=== PATIENT | male | born 1985 | race Hispanic/Latino ===

== ENCOUNTER 2018-02-21 22:48 | Observation (INO) | payer OTHER, MEDICAID, SELFPAY ==
[2018-02-21 22:59] VITALS: BP 151/114; PULSE 97; RESP 22; TEMP 36.1; O2SAT 97; BMI 30.8
[2018-02-21] MEDS: HYDROMORPHONE 1 MG INJ IV ×2 (23:06→23:19)
--- NOTE | 2018-02-21 23:13 | DI.RAD.S_ITS ---
PROCEDURE: XR ACUTE ABDOMEN SERIES INDICATIONS: Abdominal pain TECHNIQUE: One view chest and two views of the abdomen were acquired. COMPARISON: None. FINDINGS: Surgical changes and devices: None. Chest: Lungs are clear. Heart size is normal. No pleural effusions. No pneumoperitoneum. Abdomen: Air distended bowel loops throughout abdomen is seen with multiple air-fluid levels. No suspicious calcifications. Visualized solid organ contours appear normal. Bones: No suspicious bony lesions. IMPRESSION: Finding is concerning for distal small bowel obstruction. No gross free air. Dictated by: Bud Brothers M.D. on 02/22/2018 at 10:11 Approved by: Bud Brothers M.D. on 02/22/2018 at 10:11
[2018-02-21 23:32] LABS: Add Manual Diff / Slide Review NO; Basophils Absolute Auto 0 /uL (0-100); Basophils Percent Auto 0.2 % (0-2); Eosinophils Absolute Auto 0 /uL (0-450); Eosinophils Percent Auto 0.3 % (2-4); Hematocrit 44.9 % (41-53); Lymphocytes Absolute Auto 1300 /uL (1100-4500); Lymphocytes Percent Auto 9.1 % (25-40); Mean Corpuscular HGB Conc 33.4 % (30-36); Mean Corpuscular Hemoglobin 28.9 PG (26-34); Mean Corpuscular Volume 86.5 fL (80-100); Monocytes Absolute Auto 1200 /uL (0-900); Monocytes Percent Auto 8.6 % (3-14); Neutrophils Absolute Auto 11700 /uL (1500-7000); Neutrophils Percent Auto 81.8 % (50-75); Platelet Count 233 X10^3/uL (150-400); Red Blood Cell Count 5.19 X10^6/uL (4.5-5.9); Red Cell Distribution Width 14.7 % (11.6-14.8); White Blood Cell Count 14.3 X10^3/uL (4.5-11.0)
[2018-02-21] MEDS: KETAMINE 500 MG/5 ML INJ 11.7934 MG IV (23:37)
--- NOTE | 2018-02-21 23:37 | PC.NURSE ---
Pt given Ketamine for pain relief. Pt on monitor technician
[2018-02-21 23:41] VITALS: BP 155/103; PULSE 103; RESP 16; O2SAT 100
[2018-02-21 23:43] LABS: Alanine Aminotransferase 67 IU/L (21-72); Albumin 4.4 g/dL (3.5-5.0); Albumin Globulin Ratio 1.3 (1.0-2.8); Alkaline Phosphatase 79 U/L (38-126); Aspartate Aminotransferase 26 IU/L (17-59); Bilirubin Total 1.1 mg/dL (0.2-1.3); Blood Urea Nitrogen 22 mg/dL (9-20); Calcium 9.1 mg/dL (8.4-10.2); Carbon Dioxide 25 mmol/L (22-32); Chloride 104 mmol/L (98-107); Estimated Glomerular Filt Rate > 60.0 mL/min (>60); Globulin 3.3 g/dL (1.7-4.1); Glucose 150 mg/dL (70-100); HEMOLYSIS < 15 (0-50); Lipase 20 U/L (23-300); Potassium 3.5 mmol/L (3.4-5.1); Sodium 143 mmol/L (137-145); Total Protein 7.7 g/dL (6.3-8.2)
--- NOTE | 2018-02-22 00:32 | DI.RAD.S_ITS ---
PROCEDURE: XR CHEST 1V INDICATIONS: NG tube placement verification TECHNIQUE: One view of the chest was acquired. COMPARISON: None. FINDINGS: Surgical changes and devices: Enteric tube tip is in the region of stomach lumen below the left hemidiaphragm.. Lungs and pleura: No pleural effusions or pneumothorax. Lungs are clear. Mediastinum: Mediastinal contours appear normal. Heart size is normal. Bones and chest wall: No suspicious bony lesions. Overlying soft tissues appear unremarkable. IMPRESSION: Enteric tube tip is in the region of stomach lumen. No acute cardiopulmonary pathology. Dictated by: Bud Brothers M.D. on 02/22/2018 at 10:12 Approved by: Bud Brothers M.D. on 02/22/2018 at 10:12
[2018-02-22 00:40] VITALS: BP 168/82; PULSE 89; RESP 13; O2SAT 100
--- NOTE | 2018-02-22 00:57 | ED.ABDPAIN ---
HPI - Abdominal Pain General Chief Complaint: Abdominal Pain Stated Complaint: Abd pain Time Seen by Provider: 02/21/18 22:51 Source: patient and EMS Mode of arrival: EMS Limitations: no limitations History of Present Illness HPI narrative: 32-year-old male, nonsmoker presents by EMS for evaluation of severe epigastric pain which started a few hours prior to arrival. The pain is severe and reminds patient of prior gallbladder attack. He denies provocation, palliation or radiation of this discomfort. It is associated with nausea and vomiting. He denies fever or chills. Patient given fentanyl 200 mcg by EMS prior to arrival MD complaint: abdominal pain Onset (ago): hour(s) Pain Consistency: constant Location: epigastric Severity: severe Severity scale (1-10): 10 Quality: cramping and stabbing Relieving factors: nothing Exacerbating factors: movement Associated symptoms: nausea and vomiting Related Data Home Medications Medication Instructions Recorded Confirmed ibuprofen #0 09/03/15 Previous Rx's Medication Instructions Recorded ondansetron [Zofran ODT] 4 mg SUBLINGUAL Q6HP PRN #10 odt 12/04/16 Allergies Allergy/AdvReac Type Severity Reaction Status Date / Time No Known Drug Allergies Allergy Verified 02/21/18 22:59 Review of Systems Constitutional Denies chills, Denies fever(s), Denies lethargy and Denies weakness Eyes Denies change in vision, Denies eye discharge, Denies irritation and Denies loss of vision ENT Ears, Nose, Mouth, and Throat: Denies change in voice, Denies neck pain and Denies sore throat Cardiovascular Denies chest pain, Denies irregular heart rhythm, Denies lightheadedness, Denies palpitations, Denies dyspnea, Denies dyspnea on exertion and Denies orthopnea Respiratory Denies cough, Denies dyspnea, Denies dyspnea on exertion and Denies wheezing Gastrointestinal Gastrointestinal: Denies abdominal pain, Denies change in bowel habits, Denies diarrhea, Denies nausea and Denies vomiting Genitourinary Denies hematuria, Denies flank pain, Denies urinary incontinence and Denies urinary urgency Musculoskeletal Denies neck pain Integumentary/Breasts Denies pruritus, Denies erythema, Denies rash and Denies wounds Neurologic Denies confusion, Denies loss of vision and Denies weakness Psychiatric Denies anxiety, Denies confusion, Denies depression, Denies homicidal ideation and Denies suicidal ideation Endocrine Denies palpitations Hematologic/Lymphatic Denies easy bruising Allergic/Immunologic Denies wheezing PFSH Surgical History Hx of cholecystectomy (Acute) Social History household members: friend(s) Smoking Status: Current every day smoker Exam Narrative Exam Narrative: 32-year-old male in significant amount of pain, diaphoretic actively vomiting Initial Vital Signs Initial Vital Signs: Vital Signs Temperature 97.0 F L 02/21/18 22:59 Pulse Rate 97 H 02/21/18 22:59 Respiratory Rate 22 02/21/18 22:59 Blood Pressure 151/114 H 02/21/18 22:59 Pulse Oximetry 97 02/21/18 22:59 Const General: cooperative, well developed and acute distress Nutritional Appearance: well nourished and obese Orientation: alert, awake, oriented x3 and not confused HENMT Head: normocephalic and atraumatic Nose: external nose normal Mouth: oral mucosae normal Teeth and gingiva: dentition normal Eyes General: appearance normal, both eyes and all related structures Eyelids: eyelids normal Conjunctivae: conjunctivae normal Sclera: sclerae normal Pupils: PERRL EOM: EOM intact bilaterally Neck Neck: normal visual inspection, trachea midline, No lymphadenopathy, No midline deformity and No JVD Lymphatic: No lymphedema Chest Chest: normal inspection of the chest Resp Effort & Inspection: normal respiratory effort, able to speak in complete sentences, no respiratory distress and no use of accessory muscles Auscultation: clear to auscultation bilaterally, no rales, no rhonchi and no wheezes GI Inspection: distended Palpation: soft, no hepatosplenomegaly, No guarding, No pulsatile mass and tender Auscultation: normal bowel sounds Course Orders Ordered: ED Orders 02/21/18 23:13 XR acute abdomen series Stat 02/21/18 23:22 Complete Blood Count AUTO DIFF Stat Comprehensive Metabolic Panel Stat Lipase Stat 02/22/18 00:32 XR chest 1V Stat 02/22/18 01:53 Consult to Dietitian, Adult Routine Sodium Chloride (Normal Saline 0.9%) 1,000 mls @ 150 mls/hr IV CONT DORIAN Last Admin: 02/22/18 01:09 Dose: 150 mls/hr HYDROMORPHONE HUMAN RESOURCES OPERATIONS MANAGER (Dilaudid 6 Mg/30 Ml) 6 mg in 30 mls @ 0 mls/hr IV Q8HR DORIAN Naloxone HCl (Narcan) 0.2 mg IV Q2MIN PRN; Protocol PRN Reason: Opiate Reversal Ondansetron HCl (Zofran) 4 mg IV Q4HR PRN PRN Reason: Nausea And Vomiting Discontinued Medications Hydromorphone HCl (Dilaudid) 1 mg IV NOW ONE Stop: 02/21/18 23:02 Last Admin: 02/21/18 23:06 Dose: 1 mg Hydromorphone HCl (Dilaudid) 1 mg IV NOW ONE Stop: 02/21/18 23:13 Last Admin: 02/21/18 23:19 Dose: 1 mg Ketamine HCl (Ketalar) 11.7934 mg 0.1 mg/kg (11.7934 mg) IV NOW ONE Stop: 02/21/18 23:33 Last Admin: 02/21/18 23:37 Dose: 11.7934 mg Reevaluation(s) Reevaluation #1: patient showing marked improvement after placement of NG Consultations Consultation #1: Dr. Garrido is happy to accept patient. IVF, pain meds, zofran, NPO Vital Signs - 8 hr 02/21/18 22:59 02/21/18 23:41 02/22/18 00:40 Temperature 97.0 F L Pulse Rate 97 H 103 H 89 Respiratory Rate 22 16 13 Blood Pressure 151/114 H Blood Pressure [Right Arm] 155/103 H 168/82 H Pulse Oximetry 97 100 100 02/22/18 01:00 Temperature 97.7 F Pulse Rate 84 Respiratory Rate 12 Blood Pressure 152/98 H Blood Pressure [Right Arm] Pulse Oximetry 97 MDM - Abdominal Pain Lab Data Result diagrams: 02/21/18 23:22 02/21/18 23:22 Lab Results 02/21/18 02/21/18 Range/Units 23:22 23:22 WBC 14.3 H (4.5-11.0) X10^3/uL RBC 5.19 (4.5-5.9) X10^6/uL Hgb 15.0 (13.5-17.5) g/dL Hct 44.9 (41-53) % MCV 86.5 (80-100) fL MCH 28.9 (26-34) PG MCHC 33.4 (30-36) % RDW 14.7 (11.6-14.8) % Plt Count 233 (150-400) X10^3/uL Neut % (Auto) 81.8 H (50-75) % Lymph % (Auto) 9.1 L (25-40) % Mobile % (Auto) 8.6 (3-14) % Eos % (Auto) 0.3 L (2-4) % Baso % (Auto) 0.2 (0-2) % Neut # (Auto) 45856 H (7582-8406) /uL Lymph # (Auto) 1300 (9176-6079) /uL Mobile # (Auto) 1200 H (0-900) /uL Eos # (Auto) 0 (0-450) /uL Baso # (Auto) 0 (0-100) /uL Sodium 143 (137-145) mmol/L Potassium 3.5 (3.4-5.1) mmol/L Chloride 104 (98-107) mmol/L Carbon Dioxide 25 (22-32) mmol/L BUN 22 H (9-20) mg/dL Creatinine 1.00 (0.66-1.25) mg/dL Estimated GFR > 60.0 (>60) mL/min BUN/Creatinine Ratio 22.0 (6-22) Glucose 150 H (70-100) mg/dL Calcium 9.1 (8.4-10.2) mg/dL Total Bilirubin 1.1 (0.2-1.3) mg/dL AST 26 (17-59) IU/L ALT 67 (21-72) IU/L Alkaline Phosphatase 79 (38-126) U/L Total Protein 7.7 (6.3-8.2) g/dL Albumin 4.4 (3.5-5.0) g/dL Globulin 3.3 (1.7-4.1) g/dL Albumin/Globulin Ratio 1.3 (1.0-2.8) Lipase 20 L (23-300) U/L Imaging Data Abdominal x-ray: Radiologist's impression: bowel obstruction - airfluid levels, dilated loops of bowel, large amount of air in stomach Discharge Plan Departure Patient Disposition: Admitted As Inpatient Clinical Impression: Partial obstruction of small intestine Discharge Date/Time: 02/22/18 01:14 Interventions: ED Discharge Assessment Last Done: 02/22/18 01:12 Admit Date/Time: 02/22/18 00:37 Admit Provider: Gypsy Garrido
[2018-02-22 01:00] VITALS: BP 152/98; PULSE 84; RESP 12; TEMP 36.5; O2SAT 97; BMI 30.8
[2018-02-22] MEDS: SODIUM CHLORIDE 0.9% 1,000 ML 150 ML IV ×2 (01:09→07:56)
--- NOTE | 2018-02-22 02:09 | PC.NURSE ---
Addendum entered by Celine August R.N. 02/22/18 05:08: Pt continues to c/o pain, and became verbally threatening towards this RN over requests for water. Called Coordinator for assistance who also attempted to explain to patient about NPO status and how water could make his situation worse. Coordinator agreed to let patient swish and spit water to which patient was dissatisfied with temperature of sink water. BUSINESS ANALYTICS FACULTY MEMBER retrieved ice water, this RN gave him a swish to which pt asked for more and to not treat me like a child. This RN gave him three more swishes and spits and left the room with the coordinator. Shortly after bed alarm sounded and found pt attempting to sit up in bed, gown had been tossed to the floor. Pt writhing in bed, had scratched himself repeatedly on forehead, c/o worst pain ever and that this RN was not doing anything for him. Explained that I had done everything avaible for him and that his doctor was on her way in to evaluate him for the ongoing pain. Pt very upset that Dr was not already in the hospital and attempted to explain the distance Dr Garrido must travel. Pt threatened to discontinue himself from his lines to get more water and attempted to get out of bed. Pt asked me to leave the room so that he could do so, explained to him that I could not leave the room if he was going to be a danger to himself. Pt stated that this RN was irritating him and making him want to leave the hospital and to just leave my room. Attempted to calm patient down and explain again his situation and again patient told me that I needed to walk out of his room because I don't know what would happen if you don't. This RN left patient's room and called Coordinator to make her aware of the threat and also called security to make them aware of patient making threats. Security reported that pt was asleep in bed when he arrived but that he would make more rounds in the area if necessary. Coordinator aware of current pt status. Original Note: Addendum entered by Celine August R.N. 02/22/18 04:23: Pt initiated call light to possibly have a BM. BUSINESS ANALYTICS FACULTY MEMBER answered light and attempted to get pt on bedside commode but the movement elicited c/o pain and writhing in the bed. Pt refused to attempt to use bedpan. Pt requested additional pain medications and was encouraged to use NURSING CARE PARTNER. This RN checked NURSING CARE PARTNER history and found since initiation at 2:12 am pt had used 1mg of Dilaudid with 8 additional denied attempts and had returned to sleep after episode of pain. Called Dr Garrido due to concern for cyclical pain pt experiences with somnolence between episodes. Discussed possible interventions with Dr Garrido who elected to come in within an hour or more and see the patient. Pt appears to be resting comfortably now and will continue to monitor. Original Note: Shift Note: Pt arrived on unit c/o of pain, writhing on the gurney, repeating that the pain had returned. Pt continually needed to be reminded to keep left arm non-flexed due to his IV being placed in left AC. Pt attached to wall suction on low intermittent pressure. Due to pt's pain, was difficult with care, including x-ray confirmation of NG tube placement, and was unable to be properly oriented to room. Dilaudid NURSING CARE PARTNER initiated with standard settings (0.2/10/6), pt educated on NURSING CARE PARTNER button use and educated that if pt were to have decreased breaths, decreased O2 saturation levels, or cessation of breathing that Narcan would be used to reverse the effects. Pt acknowledged use of NURSING CARE PARTNER and use of call light should he feel the need to get out of bed. Bed alarm initiated and pt resting comfortably in bed now.
[2018-02-22 06:15] VITALS: TEMP 36.5
[2018-02-22] MEDS: HYDROMORPHONE PCA 6 MG/30 ML PCA.VIAL IV (06:15)
--- NOTE | 2018-02-22 06:25 | PC.NURSE ---
[id number] Met patient earlier in shift at request of his nurse Celine Mckinley. Pt was requesting water at that time and came to an agreement that patient could swish with water and spit. Pt agreeable to this to maintain NPO status. Currenlty NG intact and IV infusing. Patient sleeping until ELECTRONIC BENCH TECHNICIAN clearance when machine beeped. Pt awakened an responding calmly. Pt requesting to swish and spit again. Pt agreeable to not swallow H2O. Pt states no pain currenlty, but had used 1.8 mg since admission this shift. Pt currenlty calm and cooperative with respectful exchange.
[2018-02-22 07:59] VITALS: BP 130/63; PULSE 93; RESP 18; TEMP 36.4; O2SAT 97
--- NOTE | 2018-02-22 12:04 | PC.NURSE ---
Pt's NG tube has been found pulled out at approx. 0930. Pt reports It fell out. Sticker to nose intact. Pt has been relieved of copious amounts of flatus after sitting on the toilet for a short time. He denies pain and has asked to look at the hospital food menu. Pt has been asking when he will be able to eat and drink. He was educated to the process of SBO and typical course of treatment. Pt was assured the doctor would be in soon to see him soon and explain further. Pt expressed multiple times that this was like being in retirement. This nurse explained that we were just trying to help him and not make him upset. He was reminded multiple times that it was his right to refuse treatment and leave the hospital if he wished, against medical advice. Pt reported that if he didn't see the doctor soon, he would rip his IV out and leave. A short time later, the patient asked to have his belongings and for his IV to be removed. Pt left the hospital after signing AMA paperwork at approx. 11:15
== END 2018-02-22 11:40 | disposition left against medical advice (07) ==
LOC: ED 02-22 00:35 → AC 02-22 01:02
PROVIDERS: Admitting Provider Surgery; Emergency Provider Emergency Medicine; Visit Provider Surgery
DX: K56.600 Partial intestinal obstruction, unspecified as to cause (principal); R10.9 Unspecified abdominal pain; R11.2 Nausea with vomiting, unspecified; Z53.21 Procedure and treatment not carried out due to patient leaving prior to being seen by health care provider; F17.210 Nicotine dependence, cigarettes, uncomplicated
CPT/HCPCS: 36415; 71045; 74022; 80053; 83690; 85025; 96374; 96375; 96376; 99283; 99285; G0378; J1170

== ENCOUNTER 2018-05-21 11:03 | Observation (INO) | payer OTHER, MEDICAID, SELFPAY ==
[2018-05-21 11:10] VITALS: BP 156/105; PULSE 77; RESP 20; TEMP 36.7; O2SAT 100; BMI 32.0
--- NOTE | 2018-05-21 12:01 | PC.NURSE ---
reports 2 months ago, left ama for twisted bowel, has similar sxs now. abdominal pain with nausea and vomiting x3. had normal bm today. used tums. hx of cholecystectomy.
[2018-05-21 12:17] LABS: INR 0.9 (0.9-1.3); Prothrombin Time 10.1 SECONDS (10.1-12.7)
[2018-05-21 12:20] LABS: PTT Partial Thromboplastin Tim 33 SECONDS (26.4-36.2)
[2018-05-21 12:23] LABS: Alanine Aminotransferase 83 IU/L (21-72); Albumin 5.6 g/dL (3.5-5.0); Albumin Globulin Ratio 1.3 (1.0-2.8); Alkaline Phosphatase 86 U/L (38-126); Aspartate Aminotransferase 47 IU/L (17-59); Bilirubin Total 0.8 mg/dL (0.2-1.3); Blood Urea Nitrogen 22 mg/dL (9-20); Carbon Dioxide 23 mmol/L (22-32); Chloride 103 mmol/L (98-107); Estimated Glomerular Filt Rate > 60.0 mL/min (>60); Globulin 4.4 g/dL (1.7-4.1); Glucose 126 mg/dL (70-100); HEMOLYSIS < 15 (0-50); Lipase 32 U/L (23-300); Potassium 5.1 mmol/L (3.4-5.1); Sodium 141 mmol/L (137-145)
--- NOTE | 2018-05-21 12:23 | ED.NAVMDI ---
HPI - Nausea/Vomiting/Diarrhea <IMTIAZ Goldstein - Last Filed: 05/21/18 17:59> General Chief complaint: Nausea/Vomiting/Diarrhea Stated complaint: Bathroom alot,throwing up,smelly burps Time Seen by Provider: 05/21/18 12:03 Source: patient Mode of arrival: ambulatory Limitations: no limitations History of Present Illness HPI Narrative: Patient is a 42-year-old active smoker with history of cholecystectomy and partial small bowel obstruction who presents with a chief complaint of nausea vomiting and diarrhea. He states this started yesterday he denies any fevers, but complains of profuse watery diarrhea. He denies any chest pain, shortness of breath. He states his pain is in the epigastric area, in the center of the stomach. Does not radiate anywhere. 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 He denies any blood in his stool or vomit. He has not taken anything at home to feel better. Related Data Home Medications Medication Instructions Recorded Confirmed No Known Home Medications 05/21/18 05/21/18 Allergies Allergy/AdvReac Type Severity Reaction Status Date / Time No Known Drug Allergies Allergy Verified 02/21/18 22:59 Review of Systems <IMTIAZ Goldstein - Last Filed: 05/21/18 17:59> Review of Systems GENERAL: Denies chills, fatigue, malaise, fever, sweats. HEENT: Denies sinus pain, ear pain, sore throat, difficulty swallowing, dizziness. RESPIRATORY: Denies dyspnea, cough, wheezing, hemoptysis, sputum. CARDIOVASCULAR: Denies chest pain, palpitations, orthopnea, edema, GASTROINTESTINAL: See HPI : Denies dysuria, frequency, incontinence, hematuria, urinary retention. MUSCULOSKELETAL: denies weakness, joint pain, or bony pain SKIN: Denies rash, skin lesions, or other NEUROLOGIC: Denies weakness, headache, numbness, change in speech, confusion, seizures, incoordination. PSYCHIATRIC: No concerning psychosocial issues. 12 point review of systems is negative except for those stated above PFSH <IMTIAZ Goldstein - Last Filed: 05/21/18 17:59> Surgical History Hx of cholecystectomy (Acute) Social History household members: friend(s) Smoking Status: Current some day smoker Social History household members: friend(s) Smoking Status: Current some day smoker Exam <IMTIAZ Goldstein - Last Filed: 05/21/18 17:59> Narrative Exam Narrative: GENERAL: This is a well-nourished, well-developed patient, holding a vomit bag HEAD: Atraumatic. Normocephalic. No temporal or scalp tenderness. EYES: Pupils equal round and reactive. Extraocular motions intact. No scleral icterus. No injection or drainage. ENT: Nose without bleeding, purulent drainage or septal hematoma. Throat without erythema, tonsillar hypertrophy or exudate. Uvula midline. Airway patent. NECK: Trachea midline. No JVD or lymphadenopathy. Supple, nontender, no meningeal signs. CARDIOVASCULAR: Regular rate and rhythm without murmurs, gallops, or rubs. RESPIRATORY: Clear to auscultation. Breath sounds equal bilaterally. No wheezes, rales, or rhonchi. No cough. No increased respiratory effort. GASTROINTESTINAL: Abdomen soft, nondistended. No hepato-splenomegaly, or palpable masses. No guarding. active bowel sounds all 4 quadrants. Pain to palpation of epigastric area. EXTREMITIES: No clubbing, cyanosis, or edema. No joint tenderness, effusion, or edema noted. BACK: Nontender without deformity or crepitance. No flank tenderness. NEURO: AOx3. SKIN: No rash or erythema. Initial Vital Signs Initial Vital Signs: Vital Signs Temperature 98.1 F 05/21/18 11:10 Pulse Rate 77 05/21/18 11:10 Respiratory Rate 20 05/21/18 11:10 Blood Pressure 156/105 H 05/21/18 11:10 Pulse Oximetry 100 05/21/18 11:10 <Marilee Carrion DO - Last Filed: 05/21/18 19:04> Initial Vital Signs Initial Vital Signs: Vital Signs Temperature 98.1 F 05/21/18 11:10 Pulse Rate 77 05/21/18 11:10 Respiratory Rate 20 05/21/18 11:10 Blood Pressure 156/105 H 05/21/18 11:10 Pulse Oximetry 100 05/21/18 11:10 Course <Marileepaul EnamoradoBRENDA quiñonez - Last Filed: 05/21/18 17:59> Orders Ordered: ED Orders 05/21/18 12:00 Amylase Stat Complete Blood Count AUTO DIFF Stat Comprehensive Metabolic Panel Stat Lipase Stat Partial Thromboplastin Time Stat Prothrombin Time INR Stat Troponin & CK Cardiac Panel Stat 05/21/18 12:09 EKG-12 Lead Stat 05/21/18 13:02 CT abdomen pelvis w con Stat 05/21/18 14:18 Clostridium Difficile Tox PCR Stat Stool Culture Stat 05/21/18 17:04 Education, smoking cessation ONGOING 05/22/18 05:00 Complete Blood Count AUTO DIFF Routine Comprehensive Metabolic Panel Routine Acetaminophen (Tylenol) 650 mg PO Q6HR PRN PRN Reason: As Needed for Fever/Mild Pain Hydromorphone HCl (Dilaudid) 1 mg IV Q6HR PRN PRN Reason: Pain, Severe (7-10) Last Admin: 05/21/18 17:42 Dose: 1 mg Potassium Chloride/Dextrose/Sod Cl (D5w Ns W/Kcl 20meq) 1,000 mls @ 150 mls/hr IV CONT DORIAN Ondansetron HCl (Zofran) 4 mg IV Q8HR PRN PRN Reason: Nausea And Vomiting Discontinued Medications Sodium Chloride (Normal Saline 0.9%) 1,000 mls @ 1,000 mls/hr IV BOLUS ONE Stop: 05/21/18 13:21 Last Infusion: 05/21/18 14:03 Dose: 0 mls/hr Admin: 05/21/18 12:50 Dose: 1,000 mls/hr Sodium Chloride (Normal Saline 0.9%) 1,000 mls @ 1,000 mls/hr IV BOLUS ONE Stop: 05/21/18 14:38 Last Infusion: 05/21/18 15:46 Dose: 0 mls/hr Admin: 05/21/18 14:10 Dose: 1,000 mls/hr Morphine Sulfate (Morphine) 4 mg IV NOW ONE Stop: 05/21/18 14:14 Last Admin: 05/21/18 14:37 Dose: 4 mg Ondansetron HCl (Zofran) 4 mg IV NOW ONE Stop: 05/21/18 12:23 Last Admin: 05/21/18 12:50 Dose: 4 mg Ondansetron HCl (Zofran) 4 mg IV NOW ONE Stop: 05/21/18 14:14 Last Admin: 05/21/18 14:37 Dose: 4 mg Vital Signs - 8 hr 05/21/18 11:10 05/21/18 14:54 05/21/18 16:10 Temperature 98.1 F 97.7 F Pulse Rate 77 72 68 Respiratory Rate 20 17 20 Blood Pressure 156/105 H 134/74 Blood Pressure [Left Arm] 117/64 Pulse Oximetry 100 98 100 <Marilee Carrion, - Last Filed: 05/21/18 19:04> Orders Ordered: ED Orders 05/21/18 12:00 Amylase Stat Complete Blood Count AUTO DIFF Stat Comprehensive Metabolic Panel Stat Lipase Stat Partial Thromboplastin Time Stat Prothrombin Time INR Stat Troponin & CK Cardiac Panel Stat 05/21/18 12:09 EKG-12 Lead Stat 05/21/18 13:02 CT abdomen pelvis w con Stat 05/21/18 14:18 Clostridium Difficile Tox PCR Stat Stool Culture Stat 05/21/18 17:04 Education, smoking cessation ONGOING 05/22/18 05:00 Complete Blood Count AUTO DIFF Routine Comprehensive Metabolic Panel Routine Acetaminophen (Tylenol) 650 mg PO Q6HR PRN PRN Reason: As Needed for Fever/Mild Pain Hydromorphone HCl (Dilaudid) 1 mg IV Q6HR PRN PRN Reason: Pain, Severe (7-10) Last Admin: 05/21/18 17:42 Dose: 1 mg Potassium Chloride/Dextrose/Sod Cl (D5w Ns W/Kcl 20meq) 1,000 mls @ 150 mls/hr IV CONT DORIAN Ondansetron HCl (Zofran) 4 mg IV Q8HR PRN PRN Reason: Nausea And Vomiting Discontinued Medications Sodium Chloride (Normal Saline 0.9%) 1,000 mls @ 1,000 mls/hr IV BOLUS ONE Stop: 05/21/18 13:21 Last Infusion: 05/21/18 14:03 Dose: 0 mls/hr Admin: 05/21/18 12:50 Dose: 1,000 mls/hr Sodium Chloride (Normal Saline 0.9%) 1,000 mls @ 1,000 mls/hr IV BOLUS ONE Stop: 05/21/18 14:38 Last Infusion: 05/21/18 15:46 Dose: 0 mls/hr Admin: 05/21/18 14:10 Dose: 1,000 mls/hr Morphine Sulfate (Morphine) 4 mg IV NOW ONE Stop: 05/21/18 14:14 Last Admin: 05/21/18 14:37 Dose: 4 mg Ondansetron HCl (Zofran) 4 mg IV NOW ONE Stop: 05/21/18 12:23 Last Admin: 05/21/18 12:50 Dose: 4 mg Ondansetron HCl (Zofran) 4 mg IV NOW ONE Stop: 05/21/18 14:14 Last Admin: 05/21/18 14:37 Dose: 4 mg Vital Signs - 8 hr 05/21/18 11:10 05/21/18 14:54 05/21/18 16:10 Temperature 98.1 F 97.7 F Pulse Rate 77 72 68 Respiratory Rate 20 17 20 Blood Pressure 156/105 H 134/74 Blood Pressure [Left Arm] 117/64 Pulse Oximetry 100 98 100 MDM - Nausea/Vomiting/Diarrhea <CECILLE Goldstein- - Last Filed: 05/21/18 17:59> Lab Data Result diagrams: 05/21/18 12:00 05/21/18 12:00 Lab Results 05/21/18 05/21/18 05/21/18 Range/Units 12:00 12:00 12:00 WBC 16.2 H (4.5-11.0) X10^3/uL RBC 6.58 H (4.5-5.9) X10^6/uL Hgb 18.6 H (13.5-17.5) g/dL Hct 55.3 H (41-53) % MCV 84.0 (80-100) fL MCH 28.2 (26-34) PG MCHC 33.6 (30-36) % RDW 14.6 (11.6-14.8) % Plt Count 255 (150-400) X10^3/uL Neut % (Auto) 75.9 H (50-75) % Lymph % (Auto) 14.5 L (25-40) % [place] % (Auto) 8.5 (3-14) % Eos % (Auto) 0.8 L (2-4) % Baso % (Auto) 0.3 (0-2) % Neut # (Auto) 47855 H (7224-4088) /uL Lymph # (Auto) 2300 (3543-6805) /uL [place] # (Auto) 1400 H (0-900) /uL Eos # (Auto) 100 (0-450) /uL Baso # (Auto) 0 (0-100) /uL PT 10.1 (10.1-12.7) SECONDS INR 0.9 (0.9-1.3) APTT 33 (26.4-36.2) SECONDS Sodium 141 (137-145) mmol/L Potassium 5.1 (3.4-5.1) mmol/L Chloride 103 (98-107) mmol/L Carbon Dioxide 23 (22-32) mmol/L BUN 22 H (9-20) mg/dL Creatinine 1.00 (0.66-1.25) mg/dL Estimated GFR > 60.0 (>60) mL/min BUN/Creatinine Ratio 22.0 (6-22) Glucose 126 H (70-100) mg/dL Calcium 11.0 H (8.4-10.2) mg/dL Total Bilirubin 0.8 (0.2-1.3) mg/dL AST 47 (17-59) IU/L ALT 83 H (21-72) IU/L Alkaline Phosphatase 86 (38-126) U/L Total Creatine Kinase (55-170) U/L CK-MB (CK-2) CK-MB (CK-2) Rel Index Troponin I (0.01-0.034) ng/mL Total Protein 10.1 H* (6.3-8.2) g/dL Albumin 5.6 H (3.5-5.0) g/dL Globulin 4.4 H (1.7-4.1) g/dL Albumin/Globulin Ratio 1.3 (1.0-2.8) Amylase (30-110) U/L Lipase 32 (23-300) U/L 05/21/18 Range/Units 12:00 WBC (4.5-11.0) X10^3/uL RBC (4.5-5.9) X10^6/uL Hgb (13.5-17.5) g/dL Hct (41-53) % MCV (80-100) fL MCH (26-34) PG MCHC (30-36) % RDW (11.6-14.8) % Plt Count (150-400) X10^3/uL Neut % (Auto) (50-75) % Lymph % (Auto) (25-40) % [place] % (Auto) (3-14) % Eos % (Auto) (2-4) % Baso % (Auto) (0-2) % Neut # (Auto) (1820-2934) /uL Lymph # (Auto) (9920-2405) /uL [place] # (Auto) (0-900) /uL Eos # (Auto) (0-450) /uL Baso # (Auto) (0-100) /uL PT (10.1-12.7) SECONDS INR (0.9-1.3) APTT (26.4-36.2) SECONDS Sodium (137-145) mmol/L Potassium (3.4-5.1) mmol/L Chloride (98-107) mmol/L Carbon Dioxide (22-32) mmol/L BUN (9-20) mg/dL Creatinine (0.66-1.25) mg/dL Estimated GFR (>60) mL/min BUN/Creatinine Ratio (6-22) Glucose (70-100) mg/dL Calcium (8.4-10.2) mg/dL Total Bilirubin (0.2-1.3) mg/dL AST (17-59) IU/L ALT (21-72) IU/L Alkaline Phosphatase (38-126) U/L Total Creatine Kinase 80 (55-170) U/L CK-MB (CK-2) TNP CK-MB (CK-2) Rel Index TNP Troponin I < 0.012 (0.01-0.034) ng/mL Total Protein (6.3-8.2) g/dL Albumin (3.5-5.0) g/dL Globulin (1.7-4.1) g/dL Albumin/Globulin Ratio (1.0-2.8) Amylase 76 (30-110) U/L Lipase (23-300) U/L Imaging Data CT scan - abdomen: Radiologist's impression: [place] [id number] CT Scan Report Signed Patient: Juanita Lundy [facility]#: [id number] : 1985Acct:[id number] Age/Sex: 32 / MDate of Service: 05/21/18 Loc: ED Accession Number: [id number] Procedure: CT abdomen pelvis w con Ordering Provider: Marilee Clark MANAGER [employer]ESSING- PROCEDURE: CT ABDOMEN PELVIS W CON INDICATIONS: abd pain, hx sbo TECHNIQUE: After the administration of intravenous contrast, 5 mm thick sections acquired from the diaphragm to the symphysis. 5 mm coronal and sagittal reformats were acquired. For radiation dose reduction, the following was used: automated exposure control, adjustment of mA and/or kV according to patient size. COMPARISON: None. FINDINGS: Image quality: Excellent. ABDOMEN: Lung bases: Lung bases are clear. Heart size is normal. Solid organs: Liver is normal in size and enhancement. Gallbladder is surgically absent. Biliary system is non dilated. Pancreas enhances normally. Spleen is normal in size and enhancement. No adrenal nodules. Kidneys demonstrate normal size and enhancement, without hydronephrosis. Peritoneum and bowel: Fluid distended small bowel loops are noted throughout abdomen with multiple air-fluid levels. Decompressed terminal ileum is seen with likely transition point in the right lower quadrant abdomen series 2 image 58 and series 4 image 34. No gross abnormal bowel wall thickening. No free fluid or free air. Mild sigmoid diverticulosis is seen, no CT evidence of acute diverticulitis. Nodes and vessels: No retroperitoneal or mesenteric adenopathy by size criteria. Aorta and inferior vena cava are normal in size. Miscellaneous: No ventral hernias. PELVIS: Genitourinary: Bladder wall thickness is normal. Miscellaneous: No inguinal hernias or adenopathy. Bones: No suspicious bony lesions. No vertebral body compression fractures. IMPRESSION: 1. Findings suggestive of distal small bowel obstruction likely involving terminal ileum in right lower quadrant abdomen as above. No abnormal bowel wall thickening. No free fluid or free air. 2. No renal stone hydronephrosis. 3. Mild hepatic steatosis. Prior cholecystectomy. ECG Data Attestation: I personally reviewed and interpreted this ECG as follows: Interpretation: Sinus rhythm. Ventricular rate 74. No ST elevation or depression. No ectopy noted. MDM Narrative Medical decision making narrative: The patient is a 32-year-old male who presents with abdominal pain nausea vomiting diarrhea. His CT scan indicated a small-bowel obstruction, thus I spoke with Dr. Florentino at about 15:00 who stated that he doubts that the patient has a small bowel obstruction given his watery diarrhea. He suggested the patient be admitted to the hospitalist service. I discussed using an NG tube at this point time, which he said not to do as the patient was not vomiting. I then spoke with Dr. Chavarria regarding the patient, who requested stool samples for C diff. Those were ordered. Patient was treated with IV fluids, Zofran and morphine throughout his stay in the emergency department. I did discuss with the patient his intent to stay during his admission given that he left against medical advice during his prior admission which was for the same complaint. Patient stated his intent to stay during his hospitalization. <Marilee Carrion, DO - Last Filed: 05/21/18 19:04> Lab Data Lab Results 05/21/18 05/21/18 05/21/18 Range/Units 12:00 12:00 12:00 WBC 16.2 H (4.5-11.0) X10^3/uL RBC 6.58 H (4.5-5.9) X10^6/uL Hgb 18.6 H (13.5-17.5) g/dL Hct 55.3 H (41-53) % MCV 84.0 (80-100) fL MCH 28.2 (26-34) PG MCHC 33.6 (30-36) % RDW 14.6 (11.6-14.8) % Plt Count 255 (150-400) X10^3/uL Neut % (Auto) 75.9 H (50-75) % Lymph % (Auto) 14.5 L (25-40) % [place] % (Auto) 8.5 (3-14) % Eos % (Auto) 0.8 L (2-4) % Baso % (Auto) 0.3 (0-2) % Neut # (Auto) 68089 H (1064-6696) /uL Lymph # (Auto) 2300 (0027-1556) /uL [place] # (Auto) 1400 H (0-900) /uL Eos # (Auto) 100 (0-450) /uL Baso # (Auto) 0 (0-100) /uL PT 10.1 (10.1-12.7) SECONDS INR 0.9 (0.9-1.3) APTT 33 (26.4-36.2) SECONDS Sodium 141 (137-145) mmol/L Potassium 5.1 (3.4-5.1) mmol/L Chloride 103 (98-107) mmol/L Carbon Dioxide 23 (22-32) mmol/L BUN 22 H (9-20) mg/dL Creatinine 1.00 (0.66-1.25) mg/dL Estimated GFR > 60.0 (>60) mL/min BUN/Creatinine Ratio 22.0 (6-22) Glucose 126 H (70-100) mg/dL Calcium 11.0 H (8.4-10.2) mg/dL Total Bilirubin 0.8 (0.2-1.3) mg/dL AST 47 (17-59) IU/L ALT 83 H (21-72) IU/L Alkaline Phosphatase 86 (38-126) U/L Total Creatine Kinase (55-170) U/L CK-MB (CK-2) CK-MB (CK-2) Rel Index Troponin I (0.01-0.034) ng/mL Total Protein 10.1 H* (6.3-8.2) g/dL Albumin 5.6 H (3.5-5.0) g/dL Globulin 4.4 H (1.7-4.1) g/dL Albumin/Globulin Ratio 1.3 (1.0-2.8) Amylase (30-110) U/L Lipase 32 (23-300) U/L 05/21/18 Range/Units 12:00 WBC (4.5-11.0) X10^3/uL RBC (4.5-5.9) X10^6/uL Hgb (13.5-17.5) g/dL Hct (41-53) % MCV (80-100) fL MCH (26-34) PG MCHC (30-36) % RDW (11.6-14.8) % Plt Count (150-400) X10^3/uL Neut % (Auto) (50-75) % Lymph % (Auto) (25-40) % [place] % (Auto) (3-14) % Eos % (Auto) (2-4) % Baso % (Auto) (0-2) % Neut # (Auto) (5788-3001) /uL Lymph # (Auto) (6060-6842) /uL [place] # (Auto) (0-900) /uL Eos # (Auto) (0-450) /uL Baso # (Auto) (0-100) /uL PT (10.1-12.7) SECONDS INR (0.9-1.3) APTT (26.4-36.2) SECONDS Sodium (137-145) mmol/L Potassium (3.4-5.1) mmol/L Chloride (98-107) mmol/L Carbon Dioxide (22-32) mmol/L BUN (9-20) mg/dL Creatinine (0.66-1.25) mg/dL Estimated GFR (>60) mL/min BUN/Creatinine Ratio (6-22) Glucose (70-100) mg/dL Calcium (8.4-10.2) mg/dL Total Bilirubin (0.2-1.3) mg/dL AST (17-59) IU/L ALT (21-72) IU/L Alkaline Phosphatase (38-126) U/L Total Creatine Kinase 80 (55-170) U/L CK-MB (CK-2) TNP CK-MB (CK-2) Rel Index TNP Troponin I < 0.012 (0.01-0.034) ng/mL Total Protein (6.3-8.2) g/dL Albumin (3.5-5.0) g/dL Globulin (1.7-4.1) g/dL Albumin/Globulin Ratio (1.0-2.8) Amylase 76 (30-110) U/L Lipase (23-300) U/L Discharge Plan Departure Patient Disposition: Admitted As Inpatient Clinical Impression: Partial obstruction of small intestine, Nausea vomiting and diarrhea Discharge Date/Time: 05/21/18 15:52 Interventions: ED Discharge Assessment Last Done: 05/21/18 15:50 Admit Date/Time: 05/21/18 14:20 Admit Provider: Madelaien Chavarria <Marilee Carrion DO - Last Filed: 05/21/18 19:04> Cosign ED Attending Cosservandoature Attestation: I was immediately available in the department for consultation. This documentation has been reviewed and I agree with assessment and plan. Supervised by Marilee Carrion, DO
[2018-05-21 12:26] LABS: Add Manual Diff / Slide Review NO; Basophils Absolute Auto 0 /uL (0-100); Basophils Percent Auto 0.3 % (0-2); Eosinophils Absolute Auto 100 /uL (0-450); Eosinophils Percent Auto 0.8 % (2-4); Hematocrit 55.3 % (41-53); Hemoglobin 18.6 g/dL (13.5-17.5); Lymphocytes Absolute Auto 2300 /uL (1100-4500); Lymphocytes Percent Auto 14.5 % (25-40); Mean Corpuscular HGB Conc 33.6 % (30-36); Mean Corpuscular Hemoglobin 28.2 PG (26-34); Monocytes Absolute Auto 1400 /uL (0-900); Monocytes Percent Auto 8.5 % (3-14); Neutrophils Absolute Auto 12300 /uL (1500-7000); Neutrophils Percent Auto 75.9 % (50-75); Platelet Count 255 X10^3/uL (150-400); Red Blood Cell Count 6.58 X10^6/uL (4.5-5.9); Red Cell Distribution Width 14.6 % (11.6-14.8); White Blood Cell Count 16.2 X10^3/uL (4.5-11.0)
--- NOTE | 2018-05-21 12:29 | ED_ITS ---
HPI - Nausea/Vomiting/Diarrhea <IMTIAZ Goldstein - Last Filed: 05/21/18 17:59> General Chief complaint: Nausea/Vomiting/Diarrhea Stated complaint: Bathroom alot,throwing up,smelly burps Time Seen by Provider: 05/21/18 12:03 Source: patient Mode of arrival: ambulatory Limitations: no limitations History of Present Illness HPI Narrative: Patient is a 42-year-old active smoker with history of cholecystectomy and partial small bowel obstruction who presents with a chief complaint of nausea vomiting and diarrhea. He states this started yesterday he denies any fevers, but complains of profuse watery diarrhea. He denies any chest pain, shortness of breath. He states his pain is in the epigastric area, in the center of the stomach. Does not radiate anywhere. He does admit to gett ing out of group home recently and admits to having several high fat large meals in a row yesterday. He denies any blood in his stool or vomit. He has not taken anything at home to feel better. Related Data Home Medications Medication Instructions Recorded Confirmed No Known Home Medications 05/21/18 05/21/18 Allergies Allergy/AdvReac Type Severity Reaction Status Date / Time No Known Drug Allergies Allergy Verified 02/21/18 22:59 Review of Systems <IMTIAZ Goldstein - Last Filed: 05/21/18 17:59> Review of Systems GENERAL: Denies chills, fatigue, malaise, fever, sweats. HEENT: Denies sinus pain, ear pain, sore throat, difficulty swallowing, dizziness. RESPIRATORY: Denies dyspnea, cough, wheezing, hemoptysis, sputum. CARDIOVASCULAR: Denies chest pain, palpitations, orthopnea, edema, GASTROINTESTINAL: See HPI : Denies dysuria, frequency, incontinence, hematuria, urinary retention. MUSCULOSKELETAL: denies weakness, joint pain, or bony pain SKIN: Denies rash, skin lesions, or other NEUROLOGIC: Denies weakness, headache, numbness, change in speech, confusion, seizures, incoordination. PSYCHIATRIC: No concerning psychosocial issues. 12 point review of systems is negative except for those stated above PFSH <IMTIAZ Goldstein - Last Filed: 05/21/18 17:59> Surgical History Hx of cholecystectomy (Acute) Social History household members: friend(s) Smoking Status: Current some day smoker Social History household members: friend(s) Smoking Status: Current some day smoker Exam <IMTIAZ Goldstein - Last Filed: 05/21/18 17:59> Narrative Exam Narrative: GENERAL: This is a well-nourished, well-developed patient, holding a vomit bag HEAD: Atraumatic. Normocephalic. No temporal or scalp tenderness. EYES: Pupils equal round and reactive. Extraocular motions intact. No scleral icterus. No injection or drainage. ENT: Nose without bleeding, purulent drainage or septal hematoma. Throat without erythema, tonsillar hypertrophy or exudate. Uvula midline. Airway patent. NECK: Trachea midline. No JVD or lymphadenopathy. Supple, nontender, no meningeal signs. CARDIOVASCULAR: Regular rate and rhythm without murmurs, gallops, or rubs. RESPIRATORY: Clear to auscultation. Breath sounds equal bilaterally. No wheezes, rales, or rhonchi. No cough. No increased respiratory effort. GASTROINTESTINAL: Abdomen soft, nondistended. No hepato-splenomegaly, or palpable masses. No guarding. active bowel sounds all 4 quadrants. Pain to palpation of epigastric area. EXTREMITIES: No clubbing, cyanosis, or edema. No joint tenderness, effusion, or edema noted. BACK: Nontender without deformity or crepitance. No flank tenderness. NEURO: AOx3. SKIN: No rash or erythema. Initial Vital Signs Initial Vital Signs: Vital Signs Temperature 98.1 F 05/21/18 11:10 Pulse Rate 77 05/21/18 11:10 Respiratory Rate 20 05/21/18 11:10 Blood Pressure 156/105 H 05/21/18 11:10 Pulse Oximetry 100 05/21/18 11:10 <Marilee Carrion DO - Last Filed: 05/21/18 19:04> Initial Vital Signs Initial Vital Signs: Vital Signs Temperature 98.1 F 05/21/18 11:10 Pulse Rate 77 05/21/18 11:10 Respiratory Rate 20 05/21/18 11:10 Blood Pressure 156/105 H 05/21/18 11:10 Pulse Oximetry 100 05/21/18 11:10 Course <Marilee EnamoradoIMTIAZ quiñonez - Last Filed: 05/21/18 17:59> Orders Ordered: ED Orders 05/21/18 12:00 Amylase Stat Complete Blood Count AUTO DIFF Stat Comprehensive Metabolic Panel Stat Lipase Stat Partial Thromboplastin Time Stat Prothrombin Time INR Stat Troponin & CK Cardiac Panel Stat 05/21/18 12:09 EKG-12 Lead Stat 05/21/18 13:02 CT abdomen pelvis w con Stat 05/21/18 14:18 Clostridium Difficile Tox PCR Stat Stool Culture Stat 05/21/18 17:04 Education, smoking cessation ONGOING 05/22/18 05:00 Complete Blood Count AUTO DIFF Routine Comprehensive Metabolic Panel Routine Acetaminophen (Tylenol) 650 mg PO Q6HR PRN PRN Reason: As Needed for Fever/Mild Pain Hydromorphone HCl (Dilaudid) 1 mg IV Q6HR PRN PRN Reason: Pain, Severe (7-10) Last Admin: 05/21/18 17:42 Dose: 1 mg Potassium Chloride/Dextrose/Sod Cl (D5w Ns W/Kcl 20meq) 1,000 mls @ 150 mls/hr IV CONT DORIAN Ondansetron HCl (Zofran) 4 mg IV Q8HR PRN PRN Reason: Nausea And Vomiting Discontinued Medications Sodium Chloride (Normal Saline 0.9%) 1,000 mls @ 1,000 mls/hr IV BOLUS ONE Stop: 05/21/18 13:21 Last Infusion: 05/21/18 14:03 Dose: 0 mls/hr Admin: 05/21/18 12:50 Dose: 1,000 mls/hr Sodium Chloride (Normal Saline 0.9%) 1,000 mls @ 1,000 mls/hr IV BOLUS ONE Stop: 05/21/18 14:38 Last Infusion: 05/21/18 15:46 Dose: 0 mls/hr Admin: 05/21/18 14:10 Dose: 1,000 mls/hr Morphine Sulfate (Morphine) 4 mg IV NOW ONE Stop: 05/21/18 14:14 Last Admin: 05/21/18 14:37 Dose: 4 mg Ondansetron HCl (Zofran) 4 mg IV NOW ONE Stop: 05/21/18 12:23 Last Admin: 05/21/18 12:50 Dose: 4 mg Ondansetron HCl (Zofran) 4 mg IV NOW ONE Stop: 05/21/18 14:14 Last Admin: 05/21/18 14:37 Dose: 4 mg Vital Signs - 8 hr 05/21/18 11:10 05/21/18 14:54 05/21/18 16:10 Temperature 98.1 F 97.7 F Pulse Rate 77 72 68 Respiratory Rate 20 17 20 Blood Pressure 156/105 H 134/74 Blood Pressure [Left Arm] 117/64 Pulse Oximetry 100 98 100 <Marilee Carrion, - Last Filed: 05/21/18 19:04> Orders Ordered: ED Orders 05/21/18 12:00 Amylase Stat Complete Blood Count AUTO DIFF Stat Comprehensive Metabolic Panel Stat Lipase Stat Partial Thromboplastin Time Stat Prothrombin Time INR Stat Troponin & CK Cardiac Panel Stat 05/21/18 12:09 EKG-12 Lead Stat 05/21/18 13:02 CT abdomen pelvis w con Stat 05/21/18 14:18 Clostridium Difficile Tox PCR Stat Stool Culture Stat 05/21/18 17:04 Education, smoking cessation ONGOING 05/22/18 05:00 Complete Blood Count AUTO DIFF Routine Comprehensive Metabolic Panel Routine Acetaminophen (Tylenol) 650 mg PO Q6HR PRN PRN Reason: As Needed for Fever/Mild Pain Hydromorphone HCl (Dilaudid) 1 mg IV Q6HR PRN PRN Reason: Pain, Severe (7-10) Last Admin: 05/21/18 17:42 Dose: 1 mg Potassium Chloride/Dextrose/Sod Cl (D5w Ns W/Kcl 20meq) 1,000 mls @ 150 mls/hr IV CONT DORIAN Ondansetron HCl (Zofran) 4 mg IV Q8HR PRN PRN Reason: Nausea And Vomiting Discontinued Medications Sodium Chloride (Normal Saline 0.9%) 1,000 mls @ 1,000 mls/hr IV BOLUS ONE Stop: 05/21/18 13:21 Last Infusion: 05/21/18 14:03 Dose: 0 mls/hr Admin: 05/21/18 12:50 Dose: 1,000 mls/hr Sodium Chloride (Normal Saline 0.9%) 1,000 mls @ 1,000 mls/hr IV BOLUS ONE Stop: 05/21/18 14:38 Last Infusion: 05/21/18 15:46 Dose: 0 mls/hr Admin: 05/21/18 14:10 Dose: 1,000 mls/hr Morphine Sulfate (Morphine) 4 mg IV NOW ONE Stop: 05/21/18 14:14 Last Admin: 05/21/18 14:37 Dose: 4 mg Ondansetron HCl (Zofran) 4 mg IV NOW ONE Stop: 05/21/18 12:23 Last Admin: 05/21/18 12:50 Dose: 4 mg Ondansetron HCl (Zofran) 4 mg IV NOW ONE Stop: 05/21/18 14:14 Last Admin: 05/21/18 14:37 Dose: 4 mg Vital Signs - 8 hr 05/21/18 11:10 05/21/18 14:54 05/21/18 16:10 Temperature 98.1 F 97.7 F Pulse Rate 77 72 68 Respiratory Rate 20 17 20 Blood Pressure 156/105 H 134/74 Blood Pressure [Left Arm] 117/64 Pulse Oximetry 100 98 100 MDM - Nausea/Vomiting/Diarrhea <CECILLE Goldstein-BC - Last Filed: 05/21/18 17:59> Lab Data Result diagrams: 05/21/18 12:00 05/21/18 12:00 Lab Results 05/21/18 05/21/18 05/21/18 Range/Units 12:00 12:00 12:00 WBC 16.2 H (4.5-11.0) X10^3/uL RBC 6.58 H (4.5-5.9) X10^6/uL Hgb 18.6 H (13.5-17.5) g/dL Hct 55.3 H (41-53) % MCV 84.0 (80-100) fL MCH 28.2 (26-34) PG MCHC 33.6 (30-36) % RDW 14.6 (11.6-14.8) % Plt Count 255 (150-400) X10^3/uL Neut % (Auto) 75.9 H (50-75) % Lymph % (Auto) 14.5 L (25-40) % [place] % (Auto) 8.5 (3-14) % Eos % (Auto) 0.8 L (2-4) % Baso % (Auto) 0.3 (0-2) % Neut # (Auto) 65518 H (6300-5013) /uL Lymph # (Auto) 2300 (7680-4756) /uL [place] # (Auto) 1400 H (0-900) /uL Eos # (Auto) 100 (0-450) /uL Baso # (Auto) 0 (0-100) /uL PT 10.1 (10.1-12.7) SECONDS INR 0.9 (0.9-1.3) APTT 33 (26.4-36.2) SECONDS Sodium 141 (137-145) mmol/L Potassium 5.1 (3.4-5.1) mmol/L Chloride 103 (98-107) mmol/L Carbon Dioxide 23 (22-32) mmol/L BUN 22 H (9-20) mg/dL Creatinine 1.00 (0.66-1.25) mg/dL Estimated GFR > 60.0 (>60) mL/min BUN/Creatinine Ratio 22.0 (6-22) Glucose 126 H (70-100) mg/dL Calcium 11.0 H (8.4-10.2) mg/dL Total Bilirubin 0.8 (0.2-1.3) mg/dL AST 47 (17-59) IU/L ALT 83 H (21-72) IU/L Alkaline Phosphatase 86 (38-126) U/L Total Creatine Kinase (55-170) U/L CK-MB (CK-2) CK-MB (CK-2) Rel Index Troponin I (0.01-0.034) ng/mL Total Protein 10.1 H* (6.3-8.2) g/dL Albumin 5.6 H (3.5-5.0) g/dL Globulin 4.4 H (1.7-4.1) g/dL Albumin/Globulin Ratio 1.3 (1.0-2.8) Amylase (30-110) U/L Lipase 32 (23-300) U/L 05/21/18 Range/Units 12:00 WBC (4.5-11.0) X10^3/uL RBC (4.5-5.9) X10^6/uL Hgb (13.5-17.5) g/dL Hct (41-53) % MCV (80-100) fL MCH (26-34) PG MCHC (30-36) % RDW (11.6-14.8) % Plt Count (150-400) X10^3/uL Neut % (Auto) (50-75) % Lymph % (Auto) (25-40) % [place] % (Auto) (3-14) % Eos % (Auto) (2-4) % Baso % (Auto) (0-2) % Neut # (Auto) (7183-9688) /uL Lymph # (Auto) (8606-9623) /uL [place] # (Auto) (0-900) /uL Eos # (Auto) (0-450) /uL Baso # (Auto) (0-100) /uL PT (10.1-12.7) SECONDS INR (0.9-1.3) APTT (26.4-36.2) SECONDS Sodium (137-145) mmol/L Potassium (3.4-5.1) mmol/L Chloride (98-107) mmol/L Carbon Dioxide (22-32) mmol/L BUN (9-20) mg/dL Creatinine (0.66-1.25) mg/dL Estimated GFR (>60) mL/min BUN/Creatinine Ratio (6-22) Glucose (70-100) mg/dL Calcium (8.4-10.2) mg/dL Total Bilirubin (0.2-1.3) mg/dL AST (17-59) IU/L ALT (21-72) IU/L Alkaline Phosphatase (38-126) U/L Total Creatine Kinase 80 (55-170) U/L CK-MB (CK-2) TNP CK-MB (CK-2) Rel Index TNP Troponin I < 0.012 (0.01-0.034) ng/mL Total Protein (6.3-8.2) g/dL Albumin (3.5-5.0) g/dL Globulin (1.7-4.1) g/dL Albumin/Globulin Ratio (1.0-2.8) Amylase 76 (30-110) U/L Lipase (23-300) U/L Imaging Data CT scan - abdomen: Radiologist's impression: [address] [place] [address] CT Scan Report Signed Patient: Juanita Lundy [facility]#: [id number] : 1985Acct:[id number] Age/Sex: 32 / MDate of Service: 05/21/18 Loc: ED Accession Number: [id number] Procedure: CT abdomen pelvis w con Ordering Provider: Marilee Clark [facility]- PROCEDURE: CT ABDOMEN PELVIS W CON INDICATIONS: abd pain, hx sbo TECHNIQUE: After the administration of intravenous contrast, 5 mm thick sections acquired from the diaphragm to the symphysis. 5 mm coronal and sagittal reformats were acquired. For radiation dose reduction, the following was used: automated exposure control, adjustment of mA and/or kV according to patient size. COMPARISON: None. FINDINGS: Image quality: Excellent. ABDOMEN: Lung bases: Lung bases are clear. Heart size is normal. Solid organs: Liver is normal in size and enhancement. Gallbladder is surgically absent. Biliary system is non dilated. Pancreas enhances normally. Spleen is normal in size and enhancement. No adrenal nodules. Kidneys demonstrate normal size and enhancement, without hydronephrosis. Peritoneum and bowel: Fluid distended small bowel loops are noted throughout abdomen with multiple air-fluid levels. Decompressed terminal ileum is seen with likely transition point in the right lower quadrant abdomen series 2 image 58 and series 4 image 34. No gross abnormal bowel wall thickening. No free fluid or free air. Mild sigmoid diverticulosis is seen, no CT evidence of acute diverticulitis. Nodes and vessels: No retroperitoneal or mesenteric adenopathy by size criteria. Aorta and inferior vena cava are normal in size. Miscellaneous: No ventral hernias. PELVIS: Genitourinary: Bladder wall thickness is normal. Miscellaneous: No inguinal hernias or adenopathy. Bones: No suspicious bony lesions. No vertebral body compression fractures. IMPRESSION: 1. Findings suggestive of distal small bowel obstruction likely involving terminal ileum in right lower quadrant abdomen as above. No abnormal bowel wall thickening. No free fluid or free air. 2. No renal stone hydronephrosis. 3. Mild hepatic steatosis. Prior cholecystectomy. ECG Data Attestation: I personally reviewed and interpreted this ECG as follows: Interpretation: Sinus rhythm. Ventricular rate 74. No ST elevation or depression. No ectopy noted. [facility] Narrative Medical decision making narrative: The patient is a 32-year-old male who presents with abdominal pain nausea vomiting diarrhea. His CT scan indicated a small-bowel obstruction, thus I spoke with Dr. Florentino at about 15:00 who stated that he doubts that the patient has a small bowel obstruction given his watery diarrhea. He suggested the patient be admitted to the hospitalist service. I discussed using an NG tube at this point time, which he said not to do as the patient was not vomiting. I then spoke with Dr. Chavarria regarding the patient, who requested stool samples for C diff. Those were ordered. Patient was treated with IV fluids, Zofran and morphine throughout his stay in the emergency department. I did discuss with the patient his intent to stay during his admission given that he left against medical advice during his prior admission which was for the same complaint. Patient stated his intent to stay during his hospitalization. <Marilee Carrion, DO - Last Filed: 05/21/18 19:04> Lab Data Lab Results 05/21/18 05/21/18 05/21/18 Range/Units 12:00 12:00 12:00 WBC 16.2 H (4.5-11.0) X10^3/uL RBC 6.58 H (4.5-5.9) X10^6/uL Hgb 18.6 H (13.5-17.5) g/dL Hct 55.3 H (41-53) % MCV 84.0 (80-100) fL MCH 28.2 (26-34) PG MCHC 33.6 (30-36) % RDW 14.6 (11.6-14.8) % Plt Count 255 (150-400) X10^3/uL Neut % (Auto) 75.9 H (50-75) % Lymph % (Auto) 14.5 L (25-40) % [place] % (Auto) 8.5 (3-14) % Eos % (Auto) 0.8 L (2-4) % Baso % (Auto) 0.3 (0-2) % Neut # (Auto) 81758 H (9372-7634) /uL Lymph # (Auto) 2300 (8658-1889) /uL [place] # (Auto) 1400 H (0-900) /uL Eos # (Auto) 100 (0-450) /uL Baso # (Auto) 0 (0-100) /uL PT 10.1 (10.1-12.7) SECONDS INR 0.9 (0.9-1.3) APTT 33 (26.4-36.2) SECONDS Sodium 141 (137-145) mmol/L Potassium 5.1 (3.4-5.1) mmol/L Chloride 103 (98-107) mmol/L Carbon Dioxide 23 (22-32) mmol/L BUN 22 H (9-20) mg/dL Creatinine 1.00 (0.66-1.25) mg/dL Estimated GFR > 60.0 (>60) mL/min BUN/Creatinine Ratio 22.0 (6-22) Glucose 126 H (70-100) mg/dL Calcium 11.0 H (8.4-10.2) mg/dL Total Bilirubin 0.8 (0.2-1.3) mg/dL AST 47 (17-59) IU/L ALT 83 H (21-72) IU/L Alkaline Phosphatase 86 (38-126) U/L Total Creatine Kinase (55-170) U/L CK-MB (CK-2) CK-MB (CK-2) Rel Index Troponin I (0.01-0.034) ng/mL Total Protein 10.1 H* (6.3-8.2) g/dL Albumin 5.6 H (3.5-5.0) g/dL Globulin 4.4 H (1.7-4.1) g/dL Albumin/Globulin Ratio 1.3 (1.0-2.8) Amylase (30-110) U/L Lipase 32 (23-300) U/L 05/21/18 Range/Units 12:00 WBC (4.5-11.0) X10^3/uL RBC (4.5-5.9) X10^6/uL Hgb (13.5-17.5) g/dL Hct (41-53) % MCV (80-100) fL MCH (26-34) PG MCHC (30-36) % RDW (11.6-14.8) % Plt Count (150-400) X10^3/uL Neut % (Auto) (50-75) % Lymph % (Auto) (25-40) % [place] % (Auto) (3-14) % Eos % (Auto) (2-4) % Baso % (Auto) (0-2) % Neut # (Auto) (1646-4129) /uL Lymph # (Auto) (5629-1590) /uL [place] # (Auto) (0-900) /uL Eos # (Auto) (0-450) /uL Baso # (Auto) (0-100) /uL PT (10.1-12.7) SECONDS INR (0.9-1.3) APTT (26.4-36.2) SECONDS Sodium (137-145) mmol/L Potassium (3.4-5.1) mmol/L Chloride (98-107) mmol/L Carbon Dioxide (22-32) mmol/L BUN (9-20) mg/dL Creatinine (0.66-1.25) mg/dL Estimated GFR (>60) mL/min BUN/Creatinine Ratio (6-22) Glucose (70-100) mg/dL Calcium (8.4-10.2) mg/dL Total Bilirubin (0.2-1.3) mg/dL AST (17-59) IU/L ALT (21-72) IU/L Alkaline Phosphatase (38-126) U/L Total Creatine Kinase 80 (55-170) U/L CK-MB (CK-2) TNP CK-MB (CK-2) Rel Index TNP Troponin I < 0.012 (0.01-0.034) ng/mL Total Protein (6.3-8.2) g/dL Albumin (3.5-5.0) g/dL Globulin (1.7-4.1) g/dL Albumin/Globulin Ratio (1.0-2.8) Amylase 76 (30-110) U/L Lipase (23-300) U/L Discharge Plan Departure Patient Disposition: Admitted As Inpatient Clinical Impression: Partial obstruction of small intestine, Nausea vomiting and diarrhea Discharge Date/Time: 05/21/18 15:52 Interventions: ED Discharge Assessment Last Done: 05/21/18 15:50 Admit Date/Time: 05/21/18 14:20 Admit Provider: Madelaine Chavarria <Marilee Carrion DO - Last Filed: 05/21/18 19:04> Cosign ED Attending Cosservandoature Attestation: I was immediately available in the department for consultation. This do cumentation has been reviewed and I agree with assessment and plan. Supervised by Marilee Carrion,
[2018-05-21 12:37] LABS: Total Protein 10.1 g/dL (6.3-8.2)
[2018-05-21] MEDS: ONDANSETRON 4 MG/2 ML INJ IV ×2 (12:50→14:37)
[2018-05-21] MEDS: SODIUM CHLORIDE 0.9% 1,000 ML 1000 ML IV ×2 (12:50→14:10)
--- NOTE | 2018-05-21 13:02 | DI.CT.S_ITS ---
PROCEDURE: CT ABDOMEN PELVIS W CON INDICATIONS: abd pain, hx sbo TECHNIQUE: After the administration of intravenous contrast, 5 mm thick sections acquired from the diaphragm to the symphysis. 5 mm coronal and sagittal reformats were acquired. For radiation dose reduction, the following was used: automated exposure control, adjustment of mA and/or kV according to patient size. COMPARISON: None. FINDINGS: Image quality: Excellent. ABDOMEN: Lung bases: Lung bases are clear. Heart size is normal. Solid organs: Liver is normal in size and enhancement. Gallbladder is surgically absent. Biliary system is non dilated. Pancreas enhances normally. Spleen is normal in size and enhancement. No adrenal nodules. Kidneys demonstrate normal size and enhancement, without hydronephrosis. Peritoneum and bowel: Fluid distended small bowel loops are noted throughout abdomen with multiple air-fluid levels. Decompressed terminal ileum is seen with likely transition point in the right lower quadrant abdomen series 2 image 58 and series 4 image 34. No gross abnormal bowel wall thickening. No free fluid or free air. Mild sigmoid diverticulosis is seen, no CT evidence of acute diverticulitis. Nodes and vessels: No retroperitoneal or mesenteric adenopathy by size criteria. Aorta and inferior vena cava are normal in size. Miscellaneous: No ventral hernias. PELVIS: Genitourinary: Bladder wall thickness is normal. Miscellaneous: No inguinal hernias or adenopathy. Bones: No suspicious bony lesions. No vertebral body compression fractures. IMPRESSION: 1. Findings suggestive of distal small bowel obstruction likely involving terminal ileum in right lower quadrant abdomen as above. No abnormal bowel wall thickening. No free fluid or free air. 2. No renal stone hydronephrosis. 3. Mild hepatic steatosis. Prior cholecystectomy. Dictated by: Bud Brothers M.D. on 05/21/2018 at 13:47 Approved by: Bud Brothers M.D. on 05/21/2018 at 13:55
[2018-05-21 13:06] LABS: Amylase 76 U/L (30-110); Creatine Kinase 80 U/L (55-170)
[2018-05-21 13:18] LABS: Troponin I < 0.012 ng/mL (0.01-0.034)
[2018-05-21] MEDS: MORPHINE 4 MG/ML INJ IV (14:37)
[2018-05-21 14:54] VITALS: BP 117/64; PULSE 72; RESP 17; O2SAT 98
[2018-05-21 16:10] VITALS: BP 134/74; PULSE 68; RESP 20; TEMP 36.5; O2SAT 100; BMI 32.0
--- NOTE | 2018-05-21 17:06 | PM.HP.1 ---
History of Present Illness Date Patient Seen: 05/21/18 Chief complaint: Bathroom alot,throwing up,smelly burps Narrative: The patient is a 32-year-old male with a history of cholecystectomy and a prior history of a partial small bowel obstruction who presents to the hospital with abrupt onset of abdominal pain. patient states symptoms began yesterday 1 day prior to admission. He describes mid epigastric pain which was quite severe. He had associated nausea and diarrhea. He describes having loose watery diarrhea every 10-15 minutes. The patient denied any hematemesis. He states that his stool was at times dark. He has had no fever or chills. He reports some shortness of breath with significant pain but denies any chest pain. he has no dysuria hematuria or pyuria he has had no fever chills cough runny nose or sore throat. He has had no dysuria hematuria or pyuria. No joint pains or rashes. The patient notes he has had multiple episodes of abdominal pain. he presented to the hospital for the 1st time for evaluation in February. He has not seen a rubber stamps and dies supervisor and has not been to a PCP for this condition. In the emergency department the patient underwent abdominal CT. The abdominal pelvic CT was remarkable for the following findings: indings suggestive of distal small bowel obstruction likely involving terminal ileum in right lower quadrant abdomen as above. No abnormal bowel wall thickening. No free fluid or free air. 2. No renal stone hydronephrosis. 3. Mild hepatic steatosis. Prior cholecystectomy. Patient is admitted to the hospital at this time for evaluation of bowel obstruction. Patient History Surgical History Hx of cholecystectomy (Acute) Social History household members: friend(s) Smoking Status: Current some day smoker Family & Social History Family History (Updated 05/21/18 @ 17:09 by Madelaine Chavarria MD) Father Diabetes mellitus Hypertension Social History: household members friend(s) Safety & Behavioral: Feels Safe in Current Yes Environment Been Physically Hurt or No Threatened By a Person Suicidal Ideation Description None Suicide Plan Description No Plan Tobacco & Substance use: Smoking Status Current some day smoker alcohol intake frequency other Substance Use Type marijuana Meds Home Medications Medication Instructions Recorded Confirmed Type No Known Home Medications 05/21/18 05/21/18 History Allergies Allergy/AdvReac Type Severity Reaction Status Date / Time No Known Drug Allergies Allergy Verified 02/21/18 22:59 Review of Systems Review of Systems All systems reviewed & are unremarkable except as noted in HPI and below Exam Vital Signs (past 8 hours): - 05/21/18 11:10 05/21/18 14:54 05/21/18 16:10 Temperature 98.1 F 97.7 F Pulse Rate 77 72 68 Respiratory Rate 20 17 20 Blood Pressure 156/105 H 134/74 Blood Pressure [Left Arm] 117/64 Pulse Oximetry 100 98 100 Oxygen Delivery Method Room Air Oxygen Flow Rate 0 Narrative Exam Narrative: Pleasant male ill appearing HEENT normocephalic atraumatic, oropharynx is clear neck is supple, extraocular muscles are intact Lungs: Clear to auscultation Cardiac exam: Regular rate and rhythm normal S1-S2 Abdomen: Soft mildly distended hyperactive bowel tones in all 4 quads there is tenderness to palpation in the midepigastric area, there is no rebound tenderness no palpable masses, no board-like rigidity. Extremities: No edema Neuro exam: Nonfocal Skin exam: No rash Psych exam: Patient is clear coherent appropriate without evidence of hallucinations or delusions Objective Labs Result Diagrams: 05/21/18 12:00 05/21/18 12:00 Labs: Laboratory Results - last 24 hr 05/21/18 05/21/18 05/21/18 12:00 12:00 12:00 WBC 16.2 H RBC 6.58 H Hgb 18.6 H Hct 55.3 H MCV 84.0 MCH 28.2 MCHC 33.6 RDW 14.6 Plt Count 255 Neut % (Auto) 75.9 H Lymph % (Auto) 14.5 L [place] % (Auto) 8.5 Eos % (Auto) 0.8 L Baso % (Auto) 0.3 Neut # (Auto) 06631 H Lymph # (Auto) 2300 [place] # (Auto) 1400 H Eos # (Auto) 100 Baso # (Auto) 0 PT 10.1 INR 0.9 APTT 33 Sodium 141 Potassium 5.1 Chloride 103 Carbon Dioxide 23 BUN 22 H Creatinine 1.00 Estimated GFR > 60.0 BUN/Creatinine Ratio 22.0 Glucose 126 H Calcium 11.0 H Total Bilirubin 0.8 AST 47 ALT 83 H Alkaline Phosphatase 86 Total Creatine Kinase CK-MB (CK-2) CK-MB (CK-2) Rel Index Troponin I Total Protein 10.1 H* Albumin 5.6 H Globulin 4.4 H Albumin/Globulin Ratio 1.3 Amylase Lipase 32 05/21/18 12:00 WBC RBC Hgb Hct MCV MCH MCHC RDW Plt Count Neut % (Auto) Lymph % (Auto) [place] % (Auto) Eos % (Auto) Baso % (Auto) Neut # (Auto) Lymph # (Auto) [place] # (Auto) Eos # (Auto) Baso # (Auto) PT INR APTT Sodium Potassium Chloride Carbon Dioxide BUN Creatinine Estimated GFR BUN/Creatinine Ratio Glucose Calcium Total Bilirubin AST ALT Alkaline Phosphatase Total Creatine Kinase 80 CK-MB (CK-2) TNP CK-MB (CK-2) Rel Index TNP Troponin I < 0.012 Total Protein Albumin Globulin Albumin/Globulin Ratio Amylase 76 Lipase Assessment & Plan (1) Partial obstruction of small intestine: Problem details: Partial small-bowel obstruction, present on admission. Etiology unclear. Given the patient's age of 32 and an obstruction involving the terminal ileum with associated diarrhea this raises the possibility of Crohn's colitis. Has suggested that the patient follow up with Gastroenterology at the end of this hospital stay. Current visit: Yes Status: Acute (2) Nausea vomiting and diarrhea: Problem details: Patient is having no further nausea vomiting or diarrhea. C diff has been obtained in the emergency department. Suspect related to his underlying bowel obstruction Still concern for possibility of inflammatory bowel disease. Current visit: Yes Status: Acute Assessment & Plan narrative: Patient is full code and will note that his record accordingly Quality VTE Deep Vein Thrombosis/Pulmonary Embolism Present on Admission: No
[2018-05-21] MEDS: HYDROMORPHONE 1 MG INJ IV (17:42)
--- NOTE | 2018-05-21 18:41 | PC.NURSE ---
[place] shift note: Patient awake, alert, and oriented. Abdomen, soft, tender to epigastric region, BS active. NO nausea. Understands the importance of NPO status. Oriented to room, environment, and plan of care.
[2018-05-21] MEDS: DEXTROSE 5%-NS W/KCL 20MEQ 1,000 ML 150 MEQ IV (19:42)
[2018-05-21 20:43] LABS: Clostridium Difficile Tox PCR Positive for C. diff
[2018-05-21 21:13] VITALS: BP 130/71; PULSE 64; RESP 18; TEMP 36.3
[2018-05-22] MEDS: HYDROMORPHONE 1 MG INJ IV ×2 (00:08→08:31)
[2018-05-22 00:14] VITALS: BP 122/75; PULSE 60; RESP 18; TEMP 36.7; O2SAT 98
--- NOTE | 2018-05-22 00:36 | PC.NURSE ---
Addendum entered and electronically signed by Marilee Tellez R.N. 05/22/18 06:06: 0530- WRONG PT DISREGARD THAT LINE. Urine sample collected and sent to lab. Original Note: 2300- Pt admit for SBO w/ persistent abdom pain & cramping. NPO diet at this time, pt aware. Has refused placement of NG tube. Lungs clear, on RA, VSS. L hand IV running D5/NS/K+ as ordered. Awaiting clean urine to send to lab, pt has dumped down the toilet the last few times. 0000- IV Dilaudid given as ordered for 7/10 abdom pain. 0500- Pt denies any nausea or abdom pain at this time; IV fluids running per orders. 0530- PO tylenol given for pain 'on my skin' per pt's report. Pt having difficulty following commands...swallows when prompted however needed applesauce to help.
[2018-05-22] MEDS: DEXTROSE 5%-NS W/KCL 20MEQ 1,000 ML 150 MEQ IV ×2 (02:33→09:29)
[2018-05-22 04:00] VITALS: BP 127/70; PULSE 62; RESP 16; TEMP 36.6; O2SAT 98
[2018-05-22 06:01] LABS: Add Manual Diff / Slide Review NO; Basophils Absolute Auto 0 /uL (0-100); Basophils Percent Auto 0.5 % (0-2); Eosinophils Absolute Auto 200 /uL (0-450); Eosinophils Percent Auto 2.4 % (2-4); Hematocrit 45.2 % (41-53); Hemoglobin 15.3 g/dL (13.5-17.5); Lymphocytes Absolute Auto 2600 /uL (1100-4500); Lymphocytes Percent Auto 30.1 % (25-40); Mean Corpuscular HGB Conc 33.9 % (30-36); Mean Corpuscular Hemoglobin 28.5 PG (26-34); Mean Corpuscular Volume 83.9 fL (80-100); Monocytes Absolute Auto 900 /uL (0-900); Neutrophils Absolute Auto 4800 /uL (1500-7000); Platelet Count 193 X10^3/uL (150-400); Red Blood Cell Count 5.39 X10^6/uL (4.5-5.9); Red Cell Distribution Width 14.2 % (11.6-14.8); White Blood Cell Count 8.5 X10^3/uL (4.5-11.0)
[2018-05-22 06:06] LABS: Alanine Aminotransferase 60 IU/L (21-72); Albumin 4.2 g/dL (3.5-5.0); Albumin Globulin Ratio 1.4 (1.0-2.8); Alkaline Phosphatase 59 U/L (38-126); Aspartate Aminotransferase 29 IU/L (17-59); BUN Creatinine Ratio 18.9 (6-22); Bilirubin Total 1.2 mg/dL (0.2-1.3); Blood Urea Nitrogen 17 mg/dL (9-20); Calcium 9.1 mg/dL (8.4-10.2); Carbon Dioxide 27 mmol/L (22-32); Chloride 104 mmol/L (98-107); Estimated Glomerular Filt Rate > 60.0 mL/min (>60); Globulin 2.9 g/dL (1.7-4.1); Glucose 95 mg/dL (70-100); HEMOLYSIS < 15 (0-50); Potassium 4.3 mmol/L (3.4-5.1); Sodium 139 mmol/L (137-145); Total Protein 7.1 g/dL (6.3-8.2)
[2018-05-22 08:00] VITALS: O2SAT 96
[2018-05-22 08:15] VITALS: BP 115/67; PULSE 63; RESP 18; TEMP 36.9; O2SAT 97
--- NOTE | 2018-05-22 08:54 | CM.DANOTE ---
Addendum entered by Litzy Christianson LPN 05/22/18 13:31: Just discussed case again with Dr. Chavarria and have reviewed the Dr. Florentino's consultation. Pt has reportedly just gotten out of care home (not something he shared with this DCPlanner in the conversation of this morning) and he is now pacing about the room and eager for a d/c. Dr. Chavarria says she has told him if he can tolerate eating she can ok him for d/c and he will be on oral vancomycin for the c-diff for 10 days. She requests CM team find a local pharmacy that has the medication and that takes his insurance: [facility] Martha is researching this now and will document her findings. Original Note: Addendum entered by Litzy Christianson LPN 05/22/18 13:19: Dr. Chavarria did confirm in team rounds that pt is + C diff. Original Note: DCP: assessment: Case received, EMR reviewed and met with pt. Introduced self and role. Pt is a 32 year old male who admitted yesterday afternoon to care of hopitalist team. Payer: [employer]/Medicaid PCP: does not have one, acknowledges that he need one. Pt currently receiving medical management for a partial bowel obstruction in setting of hx cholecystectomy. C-diff is pending and pt is on Contact Precautions. P: follow prn...expect pt will d/c to home when stable for same.
[2018-05-22] MEDS: VANCOMYCIN 125 MG CAPSULE PO ×2 (10:13→10:55)
--- NOTE | 2018-05-22 10:34 | PM.CN ---
History of Present Illness Date Patient Seen: 05/22/18 Time Patient Seen: 10:34 Chief complaint: Bathroom alot,throwing up,smelly burps Narrative: 32-year-old white male has just gotten out of residential. He ate a copious amount of fatty food. Then he developed abdominal pain and severe diarrhea getting up to go to the bathroom passing liquid stools all through the night prior to coming into the hospital. Came to the emergency room last night. Had a CT scan of the abdomen showing what is thought by the radiologist represent a partial small bowel obstruction with a tapering point the terminal ileum. He also had a serology for C difficile which is positive. [facility] Surgical History Hx of cholecystectomy (Acute) Social History household members: friend(s) Smoking Status: Current some day smoker Social History household members: significant other Smoking Status: Current some day smoker Meds Home Medications Medication Instructions Recorded Confirmed Type No Known Home Medications 05/21/18 05/21/18 History Allergies Allergy/AdvReac Type Severity Reaction Status Date / Time No Known Drug Allergies Allergy Verified 02/21/18 22:59 Exam Vital Signs (past 8 hours): - 05/22/18 04:00 05/22/18 08:15 Temperature 97.9 F 98.5 F Pulse Rate 62 63 Respiratory Rate 16 18 Blood Pressure 127/70 115/67 Pulse Oximetry 98 97 Oxygen Delivery Method Room Air Oxygen Flow Rate 0 Narrative Exam Narrative: Patient is afebrile. He has no abdominal pain. No nausea or vomiting. On physical examination of the abdomen there is no distention. The abdomen is soft. Nontender in all quadrants. There is no palpable mass. Objective Labs Result Diagrams: 05/22/18 05:22 05/22/18 05:22 Labs: Laboratory Results - last 24 hr 05/21/18 05/21/18 05/21/18 12:00 12:00 12:00 WBC 16.2 H RBC 6.58 H Hgb 18.6 H Hct 55.3 H MCV 84.0 MCH 28.2 MCHC 33.6 RDW 14.6 Plt Count 255 Neut % (Auto) 75.9 H Lymph % (Auto) 14.5 L [place] % (Auto) 8.5 Eos % (Auto) 0.8 L Baso % (Auto) 0.3 Neut # (Auto) 44473 H Lymph # (Auto) 2300 [place] # (Auto) 1400 H Eos # (Auto) 100 Baso # (Auto) 0 PT 10.1 INR 0.9 APTT 33 Sodium 141 Potassium 5.1 Chloride 103 Carbon Dioxide 23 BUN 22 H Creatinine 1.00 Estimated GFR > 60.0 BUN/Creatinine Ratio 22.0 Glucose 126 H Calcium 11.0 H Total Bilirubin 0.8 AST 47 ALT 83 H Alkaline Phosphatase 86 Total Creatine Kinase CK-MB (CK-2) CK-MB (CK-2) Rel Index Troponin I Total Protein 10.1 H* Albumin 5.6 H Globulin 4.4 H Albumin/Globulin Ratio 1.3 Amylase Lipase 32 C. difficile Tox (PCR) 05/21/18 05/21/18 05/22/18 12:00 19:54 05:22 WBC 8.5 RBC 5.39 Hgb 15.3 Hct 45.2 MCV 83.9 MCH 28.5 MCHC 33.9 RDW 14.2 Plt Count 193 Neut % (Auto) 57.0 Lymph % (Auto) 30.1 [place] % (Auto) 10.0 Eos % (Auto) 2.4 Baso % (Auto) 0.5 Neut # (Auto) 4800 Lymph # (Auto) 2600 [place] # (Auto) 900 Eos # (Auto) 200 Baso # (Auto) 0 PT INR APTT Sodium Potassium Chloride Carbon Dioxide BUN Creatinine Estimated GFR BUN/Creatinine Ratio Glucose Calcium Total Bilirubin AST ALT Alkaline Phosphatase Total Creatine Kinase 80 CK-MB (CK-2) TNP CK-MB (CK-2) Rel Index TNP Troponin I < 0.012 Total Protein Albumin Globulin Albumin/Globulin Ratio Amylase 76 Lipase C. difficile Tox (PCR) Positive for c. diff H 05/22/18 05:22 WBC RBC Hgb Hct MCV MCH MCHC RDW Plt Count Neut % (Auto) Lymph % (Auto) [place] % (Auto) Eos % (Auto) Baso % (Auto) Neut # (Auto) Lymph # (Auto) [place] # (Auto) Eos # (Auto) Baso # (Auto) PT INR APTT Sodium 139 Potassium 4.3 Chloride 104 Carbon Dioxide 27 BUN 17 Creatinine 0.90 Estimated GFR > 60.0 BUN/Creatinine Ratio 18.9 Glucose 95 Calcium 9.1 Total Bilirubin 1.2 AST 29 ALT 60 Alkaline Phosphatase 59 Total Creatine Kinase CK-MB (CK-2) CK-MB (CK-2) Rel Index Troponin I Total Protein 7.1 Albumin 4.2 Globulin 2.9 Albumin/Globulin Ratio 1.4 Amylase Lipase C. difficile Tox (PCR) Assessment & Plan Assessment & Plan narrative: I have personally reviewed the CT scan. There clearly is dilatation of the small bowel and a tapering point the terminal ileum. However there is copious gas in the transverse and descending colons. This is a picture of possible partial small bowel obstruction. however the patient has positive serology for C difficile and this probably represents enterocolitis. Patient has had prior abdominal surgery in the form of a laparoscopic cholecystectomy which is unlikely to cause pelvic adhesions to contribute to bowel obstruction problems. Patient has been started on a small dose of oral vancomycin 125 q.i.d.. This is for treatment of C difficile. The patient is 6 ft 5 and weighs 250 lb. I have discussed this with the pharmacist. The vancomycin dose can be up to 2 g a day orally.have taken the liberty to increase this to 250 q.i.d. to give him 1 g of vancomycin per 24 hours. This is simply because of his large size. This certainly is a patient who at this moment does not require an operation. The question is where he developed C difficile enterocolitis. Taking a careful history the patient denies any history of bloody stools which would cause concern for possible Crohn's disease causing bowel obstruction of the terminal ileum. He does not have a history consistent with Crohn's.
[2018-05-22 11:18] VITALS: BP 164/106; PULSE 67; RESP 20; TEMP 36.1; O2SAT 96
[2018-05-22] MEDS: VANCOMYCIN 125 MG CAPSULE 250 MG PO (13:43)
--- NOTE | 2018-05-22 13:50 | PC.NURSE ---
Addendum entered by Kat Stewart R.N. 05/22/18 14:50: DC - while pt remained anxious to dc I need a cigarette, waited until dc orders completed, [facility], reviewed dc instructions with pt and SO, belongings gathered, including clothing, shoes, cell phone, tsf to wc and escorted by IT SECURITY ENGINEER to car. Original Note: AM NOTE - pt is alert, no complaint abd pain, has had bm, bt are hypo, present , no complaint nausea, states he is hungry, hr 96, p60, given 1mg iv dilaudid this am for abd discomfort, pt has been noncompliant at times, would raise bed height on his own, advised to keep lower for fall risk, pt also went into br and showered on his own, started oral vanco after discussion with and Dr. Mckenzie, given handout to pt and SO regarding cdiff and precautions to take, later started clears, pt did state several times that he was going to take out his own iv and leave, did discuss with who advised pt to stay until after he taylor gen diet, adv diet to gen and a reg lunch tray was brought up to pt. asking where to send medications and pt choosing [facility].
--- NOTE | 2018-05-22 14:12 | CM.DPC ---
DCP Cont: Per Dr. Chavarria's request, sent Vanco Rx to [facility], [place] for them to run a test claim for insurance coverage. Per [facility], Vancomycin 125mg is covered 100% by [facility], patient would have no out of pocket. Martha Wise, [employer]
--- NOTE | 2018-05-22 14:39 | P.DS_ITS ---
History of Present Illness Chief complaint: Bathroom alot,throwing up,smelly burps Narrative: The patient is a 32-year-old male with a history of cholecystectomy and a prior history of a partial small bowel obstruction who presents to the hospital with abrupt onset of abdominal pain. patient states symptoms began yesterday 1 day prior to admission. He describes mid epigastric pain which was quite severe. He had associated nausea and diarrhea. He describes having loose watery diarrhea every 10-15 minutes. The patient denied any hematemesis. He states that his stool was at times dark. He has had no fever or chills. He reports some shortness of breath with significant pain but denies any chest pain. he has no dysuria hematuria or pyuria he has had no fever chills cough runny nose or sore throat. He has had no dysuria hematuria or pyuria. No joint pains or rashes. The patient notes he has had multiple episodes of abdominal pain. he presented to the hospital for the 1st time for evaluation in February. He has not seen a superintendent tests and has not been to a PCP for this condition. In the emergency department the patient underwent abdominal CT. The abdominal pelvic CT was remarkable for the following findings: indings suggestive of distal small bowel obstruction likely involving terminal ileum in right lower quadrant abdomen as above. No abnormal bowel wall thickening. No free fluid or free air. 2. No renal stone hydronephrosis. 3. Mild hepatic steatosis. Prior cholecystectomy. Patient is admitted to the hospital at this time for evaluation of bowel obstruction. Discharge Providers Date of admission: 05/21/18 14:20 Discharge Date: 05/22/18 Consults: 05/22/18 09:54 Consult to General Surgery Routine Comment: Consulting Provider: Ziggy Mckenzie Reason for consultation: SBO Has provider been notified: Yes Discharge provider: Madelaine Chavarria MD Summary Discharge Diagnosis: 1. C diff Colitis 2. Partial Small Bowel Obstruction Hospital Course: The patient was admitted to the hospital for nausea, vomiting and diarrhea. He also had abdominal pain. A CT of the abdomen and pelvis appeared to show a transition point at the terminal ilieum suggestive of a small bowel obstruction. The patient had several bowel movements. Stool was sent for Cdiff which was positive. The patient was placed on oral vancomycin. His diet was advanced and he tolerated this without difficulty. The patient was anxious to leave and was discharged home. Status at Discharge Cognitive/behavioral status at discharge: oriented Functional status at discharge: independent ambulation Overall status at discharge: patient is back to baseline Time Spent with Patient Less than 30 minutes Exam Vital Signs (past 8 hours): - 05/22/18 08:00 05/22/18 08:15 05/22/18 11:18 Temperature 98.5 F 97.0 F L Pulse Rate 63 67 Respiratory Rate 18 20 Blood Pressure 115/67 164/106 H Pulse Oximetry 96 97 96 Oxygen Delivery Method Room Air Oxygen Flow Rate 0 Narrative Exam Narrative: Anxious male ready to leave Lungs: clear to auscultation CV: RRR nl Sl S2 ABd: soft/ non tender/ non distended Ext: no edema Objective Labs Result Diagrams: 05/22/18 05:22 05/22/18 05:22 Labs: Laboratory Results - last 24 hr 05/21/18 05/22/18 05/22/18 19:54 05:22 05:22 WBC 8.5 RBC 5.39 Hgb 15.3 Hct 45.2 MCV 83.9 MCH 28.5 MCHC 33.9 RDW 14.2 Plt Count 193 Neut % (Auto) 57.0 Lymph % (Auto) 30.1 [place] % (Auto) 10.0 Eos % (Auto) 2.4 Baso % (Auto) 0.5 Neut # (Auto) 4800 Lymph # (Auto) 2600 [place] # (Auto) 900 Eos # (Auto) 200 Baso # (Auto) 0 Sodium 139 Potassium 4.3 Chloride 104 Carbon Dioxide 27 BUN 17 Creatinine 0.90 Estimated GFR > 60.0 BUN/Creatinine Ratio 18.9 Glucose 95 Calcium 9.1 Total Bilirubin 1.2 AST 29 ALT 60 Alkaline Phosphatase 59 Total Protein 7.1 Albumin 4.2 Globulin 2.9 Albumin/Globulin Ratio 1.4 C. difficile Tox (PCR) Positive for c. diff H Discharge Plan Discharge Plan Discharge Problem: Partial obstruction of small intestine, Nausea vomiting and diarrhea Patient Disposition: Home Discharge comment: f/u with [facility] [phone] for new patient appointment Discharge Med Rec/Prescriptions Prescriptions: New vancomycin 125 mg Capsule 250 mg PO QID 10 Days Qty: 80 RF: 0 Provider Discharge Instructions Diet: Diet as Tolerated Activity: as tolerated Oxygen: not indicated Skin/Wound/Dressing Care Report to your healthcare provider any signs of infection, such as:: chills, fever and increased pain Visit Report/Discharge Packet Instructions: Antibiotic-associated Colitis -- C difficile, Vancomycin Discharge Data Attending Provider: Madelaine Chavarria Admit Date/Time: 05/21/18 14:20 Quality VTE Deep Vein Thrombosis/Pulmonary Embolism Present on Admission: No
== END 2018-05-22 14:52 | disposition home or self-care (01) ==
LOC: ED 12:03 → AC 14:39
PROVIDERS: Emergency Medicine; Admitting Provider Internal Medicine; Emergency Provider Nurse Practitioner Family; Visit Provider Internal Medicine
DX: A04.72 Enterocolitis due to Clostridium difficile, not specified as recurrent (principal); R11.2 Nausea with vomiting, unspecified; K56.600 Partial intestinal obstruction, unspecified as to cause; R19.7 Diarrhea, unspecified; F17.210 Nicotine dependence, cigarettes, uncomplicated
CPT/HCPCS: 36415; 36591; 74177; 80053; 82150; 82550; 83690; 84484; 85025; 85610; 85730; 87045; 87147; 87493; 87899; 93005; 93010; 96361; 96374; 96375; 96376; 99225; 99283; 99285; 99406; G0378; J1170; J2270; J2405

== ENCOUNTER 2019-08-17 04:00 | Emergency (ER) | payer OTHER, SELFPAY ==
[2019-08-17] VITALS (10 sets, daily range): BP systolic 102–151; BP diastolic 54–90; PULSE 99–120; RESP 22; TEMP 36.7–37.1; O2SAT 97–100; BMI 31.6
--- NOTE | 2019-08-17 04:13 | ED_ITS ---
HPI - Abdominal Pain General Chief Complaint: Abdominal Pain Stated Complaint: GI Issues Time Seen by Provider: 08/17/19 04:13 Source: patient Mode of arrival: Ambulatory Limitations: no limitations History of Present Illness HPI narrative: The patient developed left-sided abdominal pain earlier today. He has had no fever or chills. He did have a bowel movement yesterday, but feels constipated. He feels pressure. There is no associated nausea vomiting. He has previously had C diff colitis. He is status post cholecystectomy. He has previously been diagnosed with a partial bowel obstruction. He denies ur inary complaints. He denies fever, sore throat or difficulty breathing. He has been around no one with illness recently. Related Data Allergies Allergy/AdvReac Type Severity Reaction Status Date / Time No Known Drug Allergies Allergy Verified 02/21/18 22:59 Patient History Surgical History Hx of cholecystectomy (Acute) Family History Father Diabetes mellitus Hypertension Social History household members: significant other Smoking Status: Current some day smoker Smoking Status: Current some day smoker alcohol intake frequency: other Substance Use Type: marijuana Exam Initial Vital Signs Initial Vital Signs: Vital Signs Temperature 98.1 F 08/17/19 04:05 Pulse Rate 120 H 08/17/19 04:05 Respiratory Rate 22 08/17/19 04:05 Blood Pressure 139/90 08/17/19 04:05 Pulse Oximetry 98 08/17/19 04:05 Const General: cooperative and well developed Nutritional Appearance: well nourished [facility] Throat: posterior oropharynx normal Eyes General: appearance normal, both eyes and all related structures Eyelids: eyelids normal Conjunctivae: conjunctivae normal Sclera: sclerae normal Pupils: PERRL EOM: EOM intact bilaterally Neck Neck: full ROM and No tender Chest Chest: normal inspection of the chest Resp Effort & Inspection: normal respiratory effort, able to speak in complete sentences and respiratory distress Auscultation: clear to auscultation bilaterally, no rales, no rhonchi and no wheezes Cardio Rate: regular rate Rhythm: regular rhythm Heart Sounds: S1 normal and S2 normal Pulses: normal peripheral pulses GI Other: LLQ without distention, guarding or rebound. Normal bowel sounds. Back/Spine/Pelvis Back: No CVA tenderness Skin General: no rashes or lesions noted Neuro General: patient alert, patient oriented x3, gait normal and no focal motor deficits Speech: speech normal Extrem General: full ROM, no pedal edema and no calf tenderness Course Course Course Narrative: The patient has improved after receiving IV Toradol. CT reveals diverticulosis, no evidence of diverticulitis. The CT was otherwise benign. He was started on milk of magnesia due to his complaints of constipation. Orders Ordered: ED Orders 08/17/19 04:08 Complete Blood Count AUTO DIFF Stat Comprehensive Metabolic Panel Stat Lipase Stat Partial Thromboplastin Time Stat Prothrombin Time INR Stat EKG-12 Lead Stat 08/17/19 04:49 CT abdomen pelvis w con Stat 08/17/19 06:05 Urinalysis and Microscopic Stat Sodium Chloride (Normal Saline 0.9%) 1,000 mls @ 250 mls/hr IV CONT DORIAN Discontinued Medications Sodium Chloride (Normal Saline 0.9%) 1,000 mls @ 1,000 mls/hr IV BOLUS ONE Stop: 08/17/19 07:07 Last Infusion: 08/17/19 06:44 Dose: 0 mls/hr Documented by: Admin: 08/17/19 06:10 Dose: 1,000 mls/hr Documented by: SABRA Ketorolac Tromethamine (Toradol) 30 mg IV NOW ONE Stop: 08/17/19 04:18 Last Admin: 08/17/19 04:21 Dose: 30 mg Documented by: JOAQUIN Magnesium Hydroxide (Milk Of Magnesia) 30 ml PO NOW ONE Stop: 08/17/19 05:44 Last Admin: 08/17/19 05:53 Dose: 30 ml Documented by: JOAQUIN Vital Signs Vital signs: Vital Signs - 8 hr 08/17/19 04:05 08/17/19 04:10 08/17/19 04:30 Temperature 98.1 F Pulse Rate 120 H 109 H 113 H Respiratory Rate 22 Blood Pressure 139/90 Pulse Oximetry 98 97 97 08/17/19 04:31 08/17/19 05:00 08/17/19 05:30 Temperature Pulse Rate 110 H 99 H 102 H Respiratory Rate Blood Pressure 112/55 L 102/54 L Pulse Oximetry 97 97 100 08/17/19 05:31 08/17/19 06:00 08/17/19 06:15 Temperature 98.8 F Pulse Rate 103 H 104 H Respiratory Rate Blood Pressure 151/67 H Pulse Oximetry 99 99 08/17/19 06:30 Temperature Pulse Rate 105 H Respiratory Rate Blood Pressure Pulse Oximetry 100 MDM - Abdominal Pain Lab Data Result diagrams: 08/17/19 04:08 08/17/19 04:08 Labs: Lab Results 08/17/19 08/17/19 08/17/19 Range/Units 04:08 04:08 04:08 WBC 11.8 H (4.5-11.0) X10^3/uL RBC 5.32 (4.5-5.9) X10^6/uL Hgb 14.8 (13.5-17.5) g/dL Hct 44.4 (41-53) % MCV 83.5 (80-100) fL MCH 27.7 (26-34) PG MCHC 33.2 (30-36) % RDW 14.9 H (11.6-14.8) % Plt Count 205 (150-400) X10^3/uL Neut % (Auto) 71.0 (50-75) % Lymph % (Auto) 19.1 L (25-40) % Ogle % (Auto) 8.7 (3-14) % Eos % (Auto) 0.4 L (2-4) % Baso % (Auto) 0.8 (0-2) % Neut # (Auto) 8400 H (8409-6973) /uL Lymph # (Auto) 2300 (4579-3610) /uL Ogle # (Auto) 1000 H (0-900) /uL Eos # (Auto) 0 (0-450) /uL Baso # (Auto) 100 (0-100) /uL PT 11.0 (10.1-12.7) SECONDS INR 1.0 (0.9-1.3) APTT 33 (26.4-36.2) SECONDS Sodium 140 (137-145) mmol/L Potassium 4.3 (3.4-5.1) mmol/L Chloride 105 (98-107) mmol/L Carbon Dioxide 23 (22-32) mmol/L BUN 14 (9-20) mg/dL Creatinine 0.87 (0.66-1.25) mg/dL Estimated GFR > 60.0 (>60) mL/min BUN/Creatinine Ratio 16.1 (6-22) Glucose 110 H (70-100) mg/dL Calcium 10.0 (8.4-10.2) mg/dL Total Bilirubin 0.6 (0.2-1.3) mg/dL AST 75 H (17-59) IU/L ALT 143 H (<50) IU/L Alkaline Phosphatase 68 (38-126) U/L Total Protein 8.2 (6.3-8.2) g/dL Albumin 4.8 (3.5-5.0) g/dL Globulin 3.4 (1.7-4.1) g/dL Albumin/Globulin Ratio 1.4 (1.0-2.8) Lipase 23 (23-300) U/L Urine Color Urine Appearance Urine pH (4.5-8.0) Ur Specific Everson (1.000-1.035) Urine Protein (Negative) Urine Glucose (UA) (Negative) g/dL Urine Ketones (NEGATIVE) Urine Occult Blood (Negative) Urine Nitrate (Negative) Urine Bilirubin (NEGATIVE) Urine Urobilinogen (0.2) E.U./dL Ur Leukocyte Esterase (NEGATIVE) Urine RBC (0-5/HPF) Urine WBC (0-5/HPF) Urine Bacteria (None) Ur Culture Indicated? Micro UA Comment 08/17/19 Range/Units 06:05 WBC (4.5-11.0) X10^3/uL RBC (4.5-5.9) X10^6/uL Hgb (13.5-17.5) g/dL Hct (41-53) % MCV (80-100) fL MCH (26-34) PG MCHC (30-36) % RDW (11.6-14.8) % Plt Count (150-400) X10^3/uL Neut % (Auto) (50-75) % Lymph % (Auto) (25-40) % Ogle % (Auto) (3-14) % Eos % (Auto) (2-4) % Baso % (Auto) (0-2) % Neut # (Auto) (3399-2332) /uL Lymph # (Auto) (5878-9517) /uL Ogle # (Auto) (0-900) /uL Eos # (Auto) (0-450) /uL Baso # (Auto) (0-100) /uL PT (10.1-12.7) SECONDS INR (0.9-1.3) APTT (26.4-36.2) SECONDS Sodium (137-145) mmol/L Potassium (3.4-5.1) mmol/L Chloride (98-107) mmol/L Carbon Dioxide (22-32) mmol/L BUN (9-20) mg/dL Creatinine (0.66-1.25) mg/dL Estimated GFR (>60) mL/min BUN/Creatinine Ratio (6-22) Glucose (70-100) mg/dL Calcium (8.4-10.2) mg/dL Total Bilirubin (0.2-1.3) mg/dL AST (17-59) IU/L ALT (<50) IU/L Alkaline Phosphatase (38-126) U/L Total Protein (6.3-8.2) g/dL Albumin (3.5-5.0) g/dL Globulin (1.7-4.1) g/dL Albumin/Globulin Ratio (1.0-2.8) Lipase (23-300) U/L Urine Color Yellow Urine Appearance Clear Urine pH 7.5 (4.5-8.0) Ur Specific Everson <=1.005 (1.000-1.035) Urine Protein Negative (Negative) Urine Glucose (UA) Negative (Negative) g/dL Urine Ketones Negative (NEGATIVE) Urine Occult Blood Trace-lysed (Negative) Urine Nitrate Negative (Negative) Urine Bilirubin Negative (NEGATIVE) Urine Urobilinogen 0.2 (0.2) E.U./dL Ur Leukocyte Esterase Negative (NEGATIVE) Urine RBC None seen (0-5/HPF) Urine WBC 1-5/hpf (0-5/HPF) Urine Bacteria None seen (None) Ur Culture Indicated? Cult not indicated Micro UA Comment * Imaging Data CT scan - abdomen/pelvis: Radiologist's Impression: Diverticulosis, no diverticulitis. No evidence of bowel obstruction. No obvious obstructive uropathy. No evidence of appendicitis. Evaluation is otherwise benign. ECG Data Attestation: I personally reviewed and interpreted this ECG as follows: (Sinus tachycardia rate 108 beats per minute. Normal intervals. No ectopy. No acute ST T wave changes.) Discharge Plan Departure Patient Disposition: Home Clinical Impression: Abdominal pain, acute, left lower quadrant, Diverticulosis Discharge Date/Time: 08/17/19 06:38 Instructions: DI for Abdominal Pain-Adult, DI for Diverticulosis Activity Restrictions/Additional Instructions: Milk of magnesia 2 tbsp every 6-8 hours as needed for abdominal cramping or constipation. Time noted tablets every 4 hours as needed for pain. Be sure you are drinking plenty of water at all times. Return to the ER for increasing pain or fever.
[2019-08-17 04:17] LABS: Add Manual Diff / Slide Review NO; Basophils Absolute Auto 100 /uL (0-100); Basophils Percent Auto 0.8 % (0-2); Eosinophils Absolute Auto 0 /uL (0-450); Eosinophils Percent Auto 0.4 % (2-4); Hematocrit 44.4 % (41-53); Hemoglobin 14.8 g/dL (13.5-17.5); Lymphocytes Absolute Auto 2300 /uL (1100-4500); Lymphocytes Percent Auto 19.1 % (25-40); Mean Corpuscular HGB Conc 33.2 % (30-36); Mean Corpuscular Hemoglobin 27.7 PG (26-34); Mean Corpuscular Volume 83.5 fL (80-100); Monocytes Absolute Auto 1000 /uL (0-900); Monocytes Percent Auto 8.7 % (3-14); Neutrophils Absolute Auto 8400 /uL (1500-7000); Platelet Count 205 X10^3/uL (150-400); Red Blood Cell Count 5.32 X10^6/uL (4.5-5.9); Red Cell Distribution Width 14.9 % (11.6-14.8); White Blood Cell Count 11.8 X10^3/uL (4.5-11.0)
[2019-08-17] MEDS: KETOROLAC 60 MG/2 ML VIAL 30 MG IV (04:21)
[2019-08-17 04:24] LABS: PTT Partial Thromboplastin Tim 33 SECONDS (26.4-36.2)
[2019-08-17 04:26] LABS: Alanine Aminotransferase 143 IU/L (<50); Albumin 4.8 g/dL (3.5-5.0); Albumin Globulin Ratio 1.4 (1.0-2.8); Alkaline Phosphatase 68 U/L (38-126); Aspartate Aminotransferase 75 IU/L (17-59); BUN Creatinine Ratio 16.1 (6-22); Bilirubin Total 0.6 mg/dL (0.2-1.3); Blood Urea Nitrogen 14 mg/dL (9-20); Carbon Dioxide 23 mmol/L (22-32); Chloride 105 mmol/L (98-107); Estimated Glomerular Filt Rate > 60.0 mL/min (>60); Globulin 3.4 g/dL (1.7-4.1); Glucose 110 mg/dL (70-100); HEMOLYSIS 49 (0-50); Lipase 23 U/L (23-300); Potassium 4.3 mmol/L (3.4-5.1); Sodium 140 mmol/L (137-145); Total Protein 8.2 g/dL (6.3-8.2)
--- NOTE | 2019-08-17 04:49 | DI.CT.S_ITS ---
PROCEDURE: CT ABDOMEN PELVIS W CON INDICATIONS: Left lower quadrant pain TECHNIQUE: After the administration of intravenous contrast, 5 mm thick sections acquired from the diaphragm to the symphysis. 5 mm coronal and sagittal reformats were acquired. For radiation dose reduction, the following was used: automated exposure control, adjustment of mA and/or kV according to patient size. COMPARISON: [facility], CT, CT ABDOMEN PELVIS W CON, 05/21/2018, 13:15. FINDINGS: Image quality: Excellent. ABDOMEN: Lung bases: Lung bases are clear. Heart size is normal. Solid organs: Liver is normal in size and enhancement. Gallbladder has been previously resected. Biliary system is non dilated. Pancreas enhances normally. Spleen is normal in size and enhancement. No adrenal nodules. Kidneys demonstrate normal size and enhancement, without hydronephrosis. Peritoneum and bowel: Bowel loops demonstrate normal wall thickness and caliber. No free fluid or air. Nodes and vessels: No retroperitoneal or mesenteric adenopathy by size criteria. Aorta and inferior vena cava are normal in size. Miscellaneous: No ventral hernias. PELVIS: Genitourinary: Bladder wall thickness is normal. Miscellaneous: No inguinal hernias or adenopathy. The absence of oral contrast reduces quality of visualization of the large and small bowel. No definite diverticulitis or colitis is found. Bones: No suspicious bony lesions. No vertebral body compression fractures. IMPRESSION: The patient is young, age 34, and a definite source of reported left lower quadrant pain is not seen. Prior cholecystectomy. As discussed above the absence of oral contrast significantly reduces the ability to accurately assess the large and small bowel. Depending on the clinical status followup by colonoscopy may be warranted if low-grade colitis is clinically suspected. No malignant appearing mass is found, no sign of definite infection or abscess formation is seen. Dictated by: Tae De Anda M.D. on 08/17/2019 at 9:20 Approved by: Tae De Anda M.D. on 08/17/2019 at 9:24
[2019-08-17] MEDS: MAGNESIUM HYDROXIDE 30 ML UDC PO (05:53)
[2019-08-17] MEDS: SODIUM CHLORIDE 0.9% 1,000 ML 1000 ML IV (06:10)
[2019-08-17 06:13] LABS: Bacteria Urine None Seen; RBC Urine None Seen (0-5/HPF)
[2019-08-17 06:14] LABS: Appearance Urine UA CLEAR; Bilirubin Urine UA NEGATIVE (NEGATIVE); Color Urine UA YELLOW; Glucose Urine UA NEGATIVE (Negative); Ketones Urine UA NEGATIVE (NEGATIVE); Leukocyte Esterase Urine UA NEGATIVE (NEGATIVE); Nitrite Urine UA NEGATIVE (Negative); Occult Blood Urine UA TRACE-LYSED (Negative); Protein Urine UA NEGATIVE (Negative); Specific Gravity Urine UA <=1.005 (1.000-1.035); Urobilinogen Urine UA 0.2 E.U./dL (0.2); pH Urine UA 7.5 (4.5-8.0)
[2019-08-17 06:32] LABS: WBC Urine 1-5/HPF (0-5/HPF)
[2019-08-17 06:33] LABS: Culture Indicated Urine Cult Not Indicated
== END 2019-08-17 06:38 | disposition home or self-care (01) ==
LOC: ED 06:01
PROVIDERS: Emergency Provider Emergency Medicine
DX: R10.32 Left lower quadrant pain (principal); K57.90 Diverticulosis of intestine, part unspecified, without perforation or abscess without bleeding; R00.0 Tachycardia, unspecified
CPT/HCPCS: 36415; 74177; 80053; 81001; 83690; 85025; 85610; 85730; 93005; 93010; 96361; 96374; 99284; J1885; Q9967

== ENCOUNTER 2020-05-15 00:08 | Emergency (ER) | payer OTHER, SELFPAY ==
[2020-05-15 00:15] VITALS: BP 137/89; PULSE 107; RESP 20; TEMP 37.2; O2SAT 97; BMI 32.8
[2020-05-15] MEDS: KETOROLAC 60 MG/2 ML VIAL 15 MG IV (00:22)
[2020-05-15] MEDS: SODIUM CHLORIDE 0.9% 1,000 ML 1000 ML IV (00:22)
[2020-05-15 00:29] LABS: Add Manual Diff / Slide Review NO; Basophils Absolute Auto 100 /uL (0-100); Basophils Percent Auto 0.5 % (0-2); Eosinophils Absolute Auto 100 /uL (0-450); Eosinophils Percent Auto 0.4 % (2-4); Hematocrit 39.9 % (41-53); Hemoglobin 13.1 g/dL (13.5-17.5); Lymphocytes Absolute Auto 1900 /uL (1100-4500); Lymphocytes Percent Auto 16.9 % (25-40); Mean Corpuscular HGB Conc 32.8 % (30-36); Mean Corpuscular Hemoglobin 27.8 PG (26-34); Mean Corpuscular Volume 84.8 fL (80-100); Monocytes Absolute Auto 1500 /uL (0-900); Monocytes Percent Auto 13.3 % (3-14); Neutrophils Absolute Auto 7900 /uL (1500-7000); Neutrophils Percent Auto 68.9 % (50-75); Platelet Count 216 X10^3/uL (150-400); Red Cell Distribution Width 14.3 % (11.6-14.8); White Blood Cell Count 11.5 X10^3/uL (4.5-11.0)
--- NOTE | 2020-05-15 00:29 | ED_ITS ---
HPI - Skin/Abscess/Foreign Bdy General Chief complaint: Skin/Abscess/Foreign Body Stated complaint: swelling redness on left ankle Time Seen by Provider: 05/15/20 00:10 Source: patient and family Mode of arrival: Wheelchair Limitations: no limitations History of Present Illness HPI narrative: 34M smoker with history of prior cellulitis presents with and young child with the chief complaint of increasing pain and swelling of his left lower leg after suffering a superficial abrasion to his lateral ankle. 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 He has pain in his lower leg with ambulation and improvement with rest. He denies systemic complaints such as fever, chills, N/V, CP or SOB. He is not dizzy weak or lightheaded. He denies any IV drug abuse Onset (ago): day(s) Tetanus up to date: yes Location: LLE Severity: moderate Quality: aching Pain Consistency: constant Relieving factors: rest Exacerbating factors: palpation and movement Context: none Associated symptoms: denies other symptoms Treatments prior to arrival: none Related Data Allergies Allergy/AdvReac Type Severity Reaction Status Date / Time No Known Drug Allergies Allergy Verified 02/21/18 22:59 Review of Systems Constitutional Constitutional: Denies chills, Denies fatigue, Denies fever(s), Denies frequent falls, Denies lethargy and Denies weakness Eyes Eyes: Denies change in vision, Denies eye discharge, Denies irritation and Denies loss of vision ENT Ears, Nose, Mouth, and Throat: Denies change in voice, Denies dizziness, Denies neck pain, Denies sore throat and Denies throat swelling Cardiovascular Cardiovascular: Denies chest pain, Denies irregular heart rhythm, Denies lightheadedness, Denies palpitations, Denies dyspnea, Denies dyspnea on exertion and Denies orthopnea Respiratory Respiratory: Denies cough, Denies dyspnea, Denies dyspnea on exertion and Denies wheezing Gastrointestinal Gastrointestinal: Denies abdominal pain, Denies change in bowel habits, Denies diarrhea, Denies nausea and Denies vomiting Musculoskeletal Musculoskeletal: Denies neck pain and Denies numbness Integumentary/Breasts Skin/Breast: Denies pruritus, Reports erythema, Denies rash, Reports skin pain, Reports skin swelling and Denies wounds Neurologic Neurologic: Denies behavioral changes, Denies confusion, Denies dizziness, Denies frequent falls, Denies loss of vision, Denies numbness and Denies weakness Psychiatric Psychiatric: Denies anxiety, Denies behavioral changes, Denies confusion, Denies depression, Denies homicidal ideation and Denies suicidal ideation Endocrine Endocrine: Denies fatigue, Denies flushing and Denies palpitations Hematologic/Lymphatic Hematologic/Lymphatic: Denies easy bruising Allergic/Immunologic Allergic/Immunologic: Denies urticaria, Denies throat swelling and Denies wheezing Patient History Surgical History Hx of cholecystectomy Family History Father Diabetes mellitus Hypertension Social History household members: significant other Smoking Status: Current some day smoker Smoking Status: Current some day smoker alcohol intake frequency: other Substance Use Type: marijuana Exam Narrative Exam Narrative: GEN: AOx3 and in mild distress EYES: Pupils are equal, round, and reactive to light and accommodation. Extraoccular muscles are intact bilaterally. There is no subconjunctival hemorrhage or exudate. CHEST: Lungs are clear to auscultation bilaterally and free of wheezes, rales, or rhonchi. Heart rate is regular rhythm, there are no murmurs, clicks, rubs, or gallops. There is no chest wall tenderness. ABD: Abdomen is soft and nontender. There is no guarding or rebound. Bowel sounds are normal in all 4 quadrants. There is no mass or organomegaly. EXT: Left lateral lower leg with abrasion, no foreign body, fluctuance, drainage or induration, surrounding erythema largely of the lateral ankle with some extension proximally, no lymphangitis, painless range of motion at the knee, no pain on medial thigh Full painless ROM of all extremities with no loss of sensation or strength. SKIN: Otherwise visible skin is warm, pink, and dry. No erythema or rash Initial Vital Signs Initial Vital Signs: Vital Signs Temperature 98.9 F 05/15/20 00:15 Pulse Rate 107 H 05/15/20 00:15 Respiratory Rate 20 05/15/20 00:15 Blood Pressure 137/89 05/15/20 00:15 Pulse Oximetry 97 05/15/20 00:15 Course Orders Ordered: ED Orders 05/15/20 00:20 Blood Culture Stat Complete Blood Count AUTO DIFF Stat Comprehensive Metabolic Panel Stat Lactate (Lactic Acid) Stat Sodium Chloride (Normal Saline 0.9%) 1,000 mls @ 1,000 mls/hr IV BOLUS ONE Stop: 05/15/20 01:14 Last Admin: 05/15/20 00:22 Dose: 1,000 mls/hr Documented by: SABRA Discontinued Medications Ketorolac Tromethamine (Ketorolac 60 Mg/2 Ml Vial) 15 mg IV NOW ONE Stop: 05/15/20 00:16 Last Admin: 05/15/20 00:22 Dose: 15 mg Documented by: SABRA Vital Signs Vital signs: Vital Signs - 8 hr 05/15/20 00:15 Temperature 98.9 F Pulse Rate 107 H Respiratory Rate 20 Blood Pressure 137/89 Pulse Oximetry 97 MDM - Skin/Abscess/Foreign Bdy Lab Data Result diagrams: 05/15/20 00:20 05/15/20 00:20
[2020-05-15 00:42] LABS: Alanine Aminotransferase 21 IU/L (<50); Albumin 4.3 g/dL (3.5-5.0); Albumin Globulin Ratio 1.5 (1.0-2.8); Alkaline Phosphatase 74 U/L (38-126); Aspartate Aminotransferase 18 IU/L (17-59); BUN Creatinine Ratio 17.1 (6-22); Bilirubin Total 0.6 mg/dL (0.2-1.3); Blood Urea Nitrogen 18 mg/dL (9-20); Calcium 9.3 mg/dL (8.4-10.2); Carbon Dioxide 23 mmol/L (22-32); Chloride 106 mmol/L (98-107); Estimated Glomerular Filt Rate > 60.0 mL/min (>60); Globulin 2.9 g/dL (1.7-4.1); Glucose 115 mg/dL (70-100); HEMOLYSIS < 15 (0-50); Lactate (Lactic Acid) 1.7 mmol/L (0.7-2.1); Potassium 3.8 mmol/L (3.4-5.1); Sodium 137 mmol/L (137-145); Total Protein 7.2 g/dL (6.3-8.2)
[2020-05-15] MEDS: DOXYCYCLINE HYCLATE 100 MG TABLET PO (00:54)
[2020-05-15] MEDS: ONDANSETRON 4 MG ODT PREPACK 1 BOTTLE MISC (00:54)
[2020-05-15] MEDS: HYDROCODONE/ACET 5/325 PREPACK 1 BOTTLE MISC (00:54)
[2020-05-15 01:03] VITALS: BP 124/57; PULSE 84; RESP 16; O2SAT 99
== END 2020-05-15 01:04 | disposition home or self-care (01) ==
PROVIDERS: Emergency Provider Emergency Medicine
DX: S90.512A Abrasion, left ankle, initial encounter (principal); R22.42 Localized swelling, mass and lump, left lower limb; W45.8XXA Other foreign body or object entering through skin, initial encounter
CPT/HCPCS: 36415; 80053; 83605; 85025; 87040; 96361; 96374; 99284; J1885

== ENCOUNTER 2020-06-07 02:29 | Emergency (ER) | payer OTHER, MEDICAID, SELFPAY ==
--- NOTE | 2020-06-07 02:48 | PC.NURSE ---
He was not seen by me,DR Porter cleared him for medical clearance.He left with [place] police custody.
--- NOTE | 2020-06-07 05:30 | ED.GENADULT ---
HPI - General Adult General Stated complaint: Fit for residential Time Seen by Provider: 06/07/20 02:31 Source: patient and police Mode of arrival: other Limitations: no limitations History of Present Illness HPI narrative: 34-year-old male smoker presents with police requesting medical clearance. He had been picked up by than and acting in his normal baseline and when they stated they were heading to residential he stated he took a whole bottle of suboxone and needed to go to the hospital. Patient has no headache, blurred vision, nausea, vomiting, chest pain or shortness of breath. Patient is very upset and states that he was misunderstood and did not say that he took any medications and does not even have access to Suboxone. He is completely asymptomatic Relieving factors: none Exacerbating factors: none Treatments prior to arrival: none Related Data Previous Rx's Medication Instructions Recorded doxycycline hyclate 100 mg PO BID #20 tab 05/15/20 ketorolac 10 mg PO Q6H PRN #14 tab 05/15/20 Allergies Allergy/AdvReac Type Severity Reaction Status Date / Time No Known Drug Allergies Allergy Verified 02/21/18 22:59 Review of Systems Constitutional Constitutional: Denies chills, Denies fatigue, Denies fever(s), Denies frequent falls, Denies lethargy and Denies weakness Eyes Eyes: Denies change in vision, Denies eye discharge, Denies irritation and Denies loss of vision ENT Ears, Nose, Mouth, and Throat: Denies change in voice, Denies dizziness, Denies neck pain, Denies sore throat and Denies throat swelling Cardiovascular Cardiovascular: Denies chest pain, Denies irregular heart rhythm, Denies lightheadedness, Denies palpitations, Denies dyspnea, Denies dyspnea on exertion and Denies orthopnea Respiratory Respiratory: Denies cough, Denies dyspnea, Denies dyspnea on exertion and Denies wheezing Gastrointestinal Gastrointestinal: Denies abdominal pain, Denies change in bowel habits, Denies diarrhea, Denies nausea and Denies vomiting Musculoskeletal Musculoskeletal: Denies neck pain and Denies numbness Integumentary/Breasts Skin/Breast: Denies pruritus, Denies erythema, Denies rash and Denies wounds Neurologic Neurologic: Denies behavioral changes, Denies confusion, Denies dizziness, Denies frequent falls, Denies loss of vision, Denies numbness and Denies weakness Psychiatric Psychiatric: Denies anxiety, Denies behavioral changes, Denies confusion, Denies depression, Denies homicidal ideation and Denies suicidal ideation Endocrine Endocrine: Denies fatigue, Denies flushing and Denies palpitations Hematologic/Lymphatic Hematologic/Lymphatic: Denies easy bruising Allergic/Immunologic Allergic/Immunologic: Denies urticaria, Denies throat swelling and Denies wheezing Patient History Surgical History Hx of cholecystectomy Family History Father Diabetes mellitus Hypertension Social History household members: significant other Smoking Status: Current some day smoker Smoking Status: Current some day smoker alcohol intake frequency: other Substance Use Type: marijuana Exam Narrative Exam Narrative: GEN: AOx3 and in mild distress, a bit angry but eventually cooperative EYES: Pupils are equal, round, and reactive to light and accommodation. Extraoccular muscles are intact bilaterally. There is no subconjunctival hemorrhage or exudate. CHEST: Lungs are clear to auscultation bilaterally and free of wheezes, rales, or rhonchi. Heart rate is regular rhythm, there are no murmurs, clicks, rubs, or gallops. There is no chest wall tenderness. ABD: Abdomen is soft and nontender. There is no guarding or rebound. Bowel sounds are normal in all 4 quadrants. There is no mass or organomegaly. EXT: Full painless ROM of all extremities with no loss of sensation or strength. SKIN: Warm, pink, and dry. No erythema or rash Discharge Plan Departure Patient Disposition: Home Clinical Impression: Feared complaint without diagnosis, Medical clearance for incarceration Activity Restrictions/Additional Instructions: *You have been diagnosed with [medical clearance for incarceration.] *What to do: *Continue to take medications as directed *Follow up with your primary care provider in 2-3 days for any issues comments or concerns call for an appointment. Let them know you were seen in the Emergency Department and that we ask that you be seen in follow up *Return to ER if you should have any new, worsening or concerning symptoms Prescriptions: No Action ketorolac 10 mg tablet 10 mg PO Q6H PRN (Reason: pain) Qty: 14 RF: 0 doxycycline hyclate 100 mg tablet 100 mg PO BID Qty: 20 RF: 0
== END 2020-06-07 02:45 | disposition home or self-care (01) ==
PROVIDERS: Emergency Provider Emergency Medicine
DX: Z02.89 Encounter for other administrative examinations (principal)
CPT/HCPCS: 99281

== ENCOUNTER 2021-11-25 20:53 | Inpatient (IN) | payer OTHER, MEDICAID, SELFPAY ==
[2021-11-25] VITALS (9 sets, daily range): BP systolic 122–175; BP diastolic 70–98; PULSE 71–115; RESP 8–22; TEMP 36.1–36.4; O2SAT 94–100
[2021-11-25] MEDS: HYDROMORPHONE 0.5 MG INJ IV ×2 (21:07→21:19)
[2021-11-25] MEDS: PANTOPRAZOLE 40 MG VIAL IV (21:07)
--- NOTE | 2021-11-25 21:07 | ED_ITS ---
HPI - Abdominal Pain General Chief Complaint: Abdominal Pain Stated Complaint: ABD PAIN, DYSPNEA Time Seen by Provider: 11/25/21 21:02 History of Present Illness HPI narrative: 36-year-old male smoker with history of prior bowel obstruction and gallbladder disease presents with his in the chief complaint of a sudden onset and severe epigastric pain about 4 hours ago. He is writhing in pain and states that nothing makes it better or worse. He denies any radiation of the pain. He is had nausea but denies any vomiting. He denies any constipation, but in fact complains of frequent loose stools. He is had no fever or chills. Only prior abdominal surgery is for a gallbladder. He was admitted a few years ago for a bowel obstruction and discharged without surgical intervention. Related Data Previous Rx's Medication Instructions Recorded doxycycline hyclate 100 mg tablet 100 mg PO BID #20 tabs 05/15/20 ketorolac 10 mg tablet 10 mg PO Q6H PRN pain #14 tabs 05/15/20 azithromycin 500 mg tablet 1,000 mg PO ONCE Chlamydia #2 tabs 08/23/20 Allergies Allergy/AdvReac Type Severity Reaction Status Date / Time No Known Drug Allergies Allergy Verified 02/21/18 22:59 Review of Systems Review of Systems Narrative: GENERAL: Denies chills, fatigue, malaise, fever, sweats. HEENT: Denies sinus pain, ear pain, sore throat, difficulty swallowing, dizziness. RESPIRATORY: Denies dyspnea, cough, wheezing, hemoptysis, sputum. CARDIOVASCULAR: Denies chest pain, palpitations, orthopnea, edema, GASTROINTESTINAL: See HPI : Denies dysuria, frequency, incontinence, hematuria, urinary retention. MUSCULOSKELETAL: denies weakness, joint pain, or bony pain SKIN: Denies rash, skin lesions, or other NEUROLOGIC: Denies weakness, headache, numbness, change in speech, confusion, seizures, incoordination. PSYCHIATRIC: No concerning psychosocial issues. 12 point review of systems is negative except for those stated above Patient History Surgical History Hx of cholecystectomy Family History Father Diabetes mellitus Hypertension Social History household members: significant other Smoking Status: Current some day smoker Smoking Status: Current some day smoker alcohol intake frequency: other Substance Use Type: marijuana Exam Narrative Exam Narrative: GENERAL: [36] year old patient appears stated age. Well-developed patient, in obvious distress, significant discomfort, rubbing his abdomen, rapid breathing HEAD: Atraumatic. Normocephalic. EYES: Pupils equal round and reactive. Extraocular motions intact. No scleral icterus. No injection or drainage. ENT: Nose without bleeding, purulent drainage. Throat without erythema, tonsillar hypertrophy or exudate. Airway patent. NECK: Trachea midline. Non tender CARDIOVASCULAR: Regular rate and rhythm without murmurs, gallops, or rubs. RESPIRATORY: Clear to auscultation. Breath sounds equal bilaterally. No wheezes, rales, or rhonchi. GASTROINTESTINAL: Abdomen soft, severe tenderness in the epigastrium, nondistended. Distant bowel sounds noted EXTREMITIES: No edema or joint tenderness. BACK: Nontender without deformity or crepitance. No flank tenderness. NEURO: AOx3. SKIN: No rash or erythema of visible areas Initial Vital Signs Initial Vital Signs: Vital Signs Temperature 97.5 F L 11/25/21 21:18 Pulse Rate 115 H 11/25/21 21:18 Respiratory Rate 22 11/25/21 21:18 Blood Pressure 175/98 H 11/25/21 21:18 Pulse Oximetry 100 11/25/21 21:18 Oxygen Delivery Method 11/25/21 21:18 Course Orders Ordered: ED Orders 11/25/21 21:10 Complete Blood Count AUTO DIFF Stat Comprehensive Metabolic Panel Stat Lactate (Lactic Acid) Stat Lipase Stat 11/25/21 21:14 CT abdomen pelvis w con Stat 11/25/21 22:31 COVID19 -Nasal RAPID/Pre-Proc Stat Acetaminophen (Acetaminophen 650 Mg Supp) 650 mg AL Q4HR PRN PRN Reason: Fever/Mild Pain (1-3) Hydromorphone HCl (Hydromorphone 0.5 Mg Inj) 0.5 mg IV Q4H PRN PRN Reason: Breakthrough pain only (4-10) Sodium Chloride (Normal Saline 0.9%) 1,000 mls @ 60 mls/hr IV CONT DORIAN Naloxone HCl (Naloxone 0.4 Mg/Ml Vial) 0.1 mg IV Q2MIN PRN PRN Reason: Opiate Reversal Ondansetron HCl (Ondansetron 4 Mg/2 Ml Inj) 4 mg IV Q4HR PRN PRN Reason: Nausea And Vomiting Promethazine HCl (Promethazine 12.5 Mg Supp) 12.5 mg AL Q6HR PRN PRN Reason: Nausea And Vomiting Discontinued Medications Hydromorphone HCl (Hydromorphone 0.5 Mg Inj) 0.5 mg IV NOW ONE Stop: 11/25/21 21:03 Last Admin: 11/25/21 21:07 Dose: 0.5 mg Documented By: ILEANA Hydromorphone HCl (Hydromorphone 0.5 Mg Inj) 0.5 mg IV NOW ONE Stop: 11/25/21 21:18 Last Admin: 11/25/21 21:19 Dose: 0.5 mg Documented By: ILEANA Sodium Chloride (Normal Saline 0.9%) 1,000 mls @ 1,000 mls/hr IV BOLUS ONE Stop: 11/25/21 22:01 Last Admin: 11/25/21 21:08 Dose: 1,000 mls/hr Documented By: ILEANA Ondansetron HCl (Ondansetron 4 Mg/2 Ml Inj) 4 mg IV NOW ONE Stop: 11/25/21 21:03 Last Admin: 11/25/21 21:08 Dose: 4 mg Documented By: ILEANA Pantoprazole Sodium (Pantoprazole 40 Mg Vial) 40 mg IV NOW ONE Stop: 11/25/21 21:03 Last Admin: 11/25/21 21:07 Dose: 40 mg Documented By: ILEANA Reevaluation(s) Reevaluation #1: Patient did have some relief after initial round of Dilaudid but pain is coming back, will re-dose Consultations Consultation #1: Upon receipt of CT a call was placed to on-call General surgery (Dr. Sharma). History and physical exam as well as prior hospitalizations discussed. Specifically we discussed CT findings including evidence of bowel obstruction with transition point and probable pneumatosis intestinalis. She recommends NG tube be placed, pain control, IV fluids and antiemetics, NPO. 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 Vital Signs Vital signs: Vital Signs - 8 hr 11/25/21 21:18 11/25/21 21:29 11/25/21 21:30 Temperature 97.5 F L Pulse Rate 115 H 73 Respiratory Rate 22 8 L Blood Pressure 175/98 H 142/81 H Pulse Oximetry 100 98 Oxygen Delivery Method Room Air 11/25/21 21:30 11/25/21 22:00 11/25/21 22:30 Temperature Pulse Rate 74 73 75 Respiratory Rate 10 L 19 21 Blood Pressure Pulse Oximetry 97 94 96 Oxygen Delivery Method MDM - Abdominal Pain Lab Data Result diagrams: 11/25/21 21:10 11/25/21 21:10 Labs: Lab Results 11/25/21 11/25/21 11/25/21 Range/Units 21:10 21:10 21:10 WBC 13.7 H (4.5-11.0) X10^3/uL RBC 5.87 (4.5-5.9) X10^6/uL Hgb 16.6 (13.5-17.5) g/dL Hct 48.7 (41-53) % MCV 82.9 (80-100) fL MCH 28.3 (26-34) PG MCHC 34.2 (30-36) % RDW 14.4 (11.6-14.8) % Plt Count 243 (150-400) X10^3/uL Neut % (Auto) 74.2 (50-75) % Lymph % (Auto) 13.5 L (25-40) % Carson % (Auto) 10.4 (3-14) % Eos % (Auto) 1.5 L (2-4) % Baso % (Auto) 0.4 (0-2) % Neut # (Auto) 48070 H (6761-9758) /uL Lymph # (Auto) 1900 (9472-4463) /uL Carson # (Auto) 1400 H (0-900) /uL Eos # (Auto) 200 (0-450) /uL Baso # (Auto) 100 (0-100) /uL Sodium 142 (137-145) mmol/L Potassium 4.2 (3.4-5.1) mmol/L Chloride 109 H (98-107) mmol/L Carbon Dioxide 19 L (22-32) mmol/L BUN 15 (9-20) mg/dL Creatinine 1.03 (0.66-1.25) mg/dL Estimated GFR > 60 (>60) mL/min BUN/Creatinine Ratio 14.6 (6-22) Glucose 114 H (70-100) mg/dL Lactate 1.2 (0.7-2.1) mmol/L Calcium 9.8 (8.4-10.2) mg/dL Total Bilirubin 0.8 (0.2-1.3) mg/dL AST 21 (17-59) IU/L ALT 43 (<50) IU/L Alkaline Phosphatase 91 (38-126) U/L Total Protein 8.9 H (6.3-8.2) g/dL Albumin 5.0 (3.5-5.0) g/dL Globulin 3.9 (1.7-4.1) g/dL Albumin/Globulin Ratio 1.3 (1.0-2.8) Lipase 38 (23-300) U/L Procalcitonin (<0.5) ng/mL SARS-CoV-2 (PCR) (Negative) 11/25/21 11/25/21 Range/Units 21:10 22:31 WBC (4.5-11.0) X10^3/uL RBC (4.5-5.9) X10^6/uL Hgb (13.5-17.5) g/dL Hct (41-53) % MCV (80-100) fL MCH (26-34) PG MCHC (30-36) % RDW (11.6-14.8) % Plt Count (150-400) X10^3/uL Neut % (Auto) (50-75) % Lymph % (Auto) (25-40) % Carson % (Auto) (3-14) % Eos % (Auto) (2-4) % Baso % (Auto) (0-2) % Neut # (Auto) (3799-8106) /uL Lymph # (Auto) (4457-4606) /uL Carson # (Auto) (0-900) /uL Eos # (Auto) (0-450) /uL Baso # (Auto) (0-100) /uL Sodium (137-145) mmol/L Potassium (3.4-5.1) mmol/L Chloride (98-107) mmol/L Carbon Dioxide (22-32) mmol/L BUN (9-20) mg/dL Creatinine (0.66-1.25) mg/dL Estimated GFR (>60) mL/min BUN/Creatinine Ratio (6-22) Glucose (70-100) mg/dL Lactate (0.7-2.1) mmol/L Calcium (8.4-10.2) mg/dL Total Bilirubin (0.2-1.3) mg/dL AST (17-59) IU/L ALT (<50) IU/L Alkaline Phosphatase (38-126) U/L Total Protein (6.3-8.2) g/dL Albumin (3.5-5.0) g/dL Globulin (1.7-4.1) g/dL Albumin/Globulin Ratio (1.0-2.8) Lipase (23-300) U/L Procalcitonin 0.11 (<0.5) ng/mL SARS-CoV-2 (PCR) Negative (Negative) Imaging Data CT scan - abdomen/pelvis: Radiologist's Impression: Close Abdomen/Pelvis CT (Signed) Bud Brothers - 11/25/21 Launch?[place] [address] CT Scan Report Signed Patient: Juanita Lundy MR#: [id number] : 1985 Acct:[id number] Age/Sex: 36 / M Date of Service: 11/25/21 Loc: ED Accession Number: [id number] ?? Procedure: CT abdomen pelvis w con Ordering Provider: John Porter D.O. PROCEDURE:? CT ABDOMEN PELVIS W CON ? INDICATIONS:? severe abdominal pain, hx SBO ? TECHNIQUE:? After the administration of intravenous contrast, axial sections acquired from the lung bases to the pubic symphysis.? Coronal and sagittal reformats were performed.? For radiation dose reduction, the following was used:? automated exposure control, adjustment of mA and/or kV according to patient size.? ? COMPARISON:? [facility], CT, CT ABDOMEN PELVIS W CON, 08/17/2019, 4:53. ? FINDINGS:? Image quality:? Excellent.? ? Lung bases:? Mild dependent atelectasis seen in posterior aspect of bilateral lung bases. Heart:? No significant findings. ? ABDOMEN: Liver:? Unremarkable.? ? Gallbladder:? Gallbladder is surgically absent. Biliary ducts:? Unremarkable.? ? Pancreas:? Unremarkable.? ? Spleen:? Unremarkable.? ? Adrenal Glands:? Unremarkable.? ? Kidneys and Ureters:? Unremarkable.? ? ? Stomach and Bowel:? There is marked fluid and air distension of stomach lumen and proximal to mid small bowel loops with a few air-fluid levels.? Terminal ileum is decompressed.? Zone of transition is not definitively seen, likely involving terminal ileal loops in right lower quadrant abdomen.? Questionable pneumatosis in distended small bowel loops are seen series 4, image 36.? Colon loops are partially decompressed.? No abnormal bowel wall thickening or mesenteric fat stranding.? Appendix is visualized and is within normal limits.? Sigmoid diverticulosis is seen without sigmoid colon wall thickening or mesenteric fat stranding.? No abscess collection. Peritoneum:? No abnormal intraperitoneal fluid.? No free air.? ? Ventral Wall: ? No hernias.? Abdominal Nodes:? No retroperitoneal or mesenteric adenopathy by size criteria.? Vessels:? Aorta and inferior vena cava are normal in size.? ? PELVIS: Pelvic Organs:? Unremarkable.? ? Bladder:? Unremarkable.? ? Pelvic Nodes: No enlarged lymph nodes.? Miscellaneous: No hernias are seen. ? ? ? Bones:? Unremar no suspicious bony lesion.? No acute vertebral body compression fracture. ?Degenerative disc disease at L5-S1 level is seen. ? ? IMPRESSION:? 1. Finding is suggestive of distal small bowel obstruction with possible zone of transition involving small bowel loops in right lower quadrant abdomen.? Suggestion of air within small bowel wall consistent with pneumatosis intestinalis.? No abscess collection.? No free fluid or free air. 2. Normal appendix.? Normal appearing colon loops.? Sigmoid diverticulosis without evidence of acute diverticulitis.? ? ? Dictated by: Bud Brothers M.D. on 11/25/2021 at 22:04 ? ? Approved by: Bud Brothers M.D. on 11/25/2021 at 22:11 ? Discharge Plan Departure Patient Disposition: Admitted As Inpatient Clinical Impression: Partial obstruction of small intestine, Pneumatosis intestinalis Admit Date/Time: 11/25/21 22:52 Admit Provider: Mary Tomlinson
[2021-11-25] MEDS: SODIUM CHLORIDE 0.9% 1,000 ML 1000 ML IV (21:08)
[2021-11-25] MEDS: ONDANSETRON 4 MG/2 ML INJ IV (21:08)
--- NOTE | 2021-11-25 21:14 | DI.CT.S_ITS ---
PROCEDURE: CT ABDOMEN PELVIS W CON INDICATIONS: severe abdominal pain, hx SBO TECHNIQUE: After the administration of intravenous contrast, axial sections acquired from the lung bases to the pubic symphysis. Coronal and sagittal reformats were performed. For radiation dose reduction, the following was used: automated exposure control, adjustment of mA and/or kV according to patient size. COMPARISON: [facility], CT, CT ABDOMEN PELVIS W CON, 08/17/2019, 4:53. FINDINGS: Image quality: Excellent. Lung bases: Mild dependent atelectasis seen in posterior aspect of bilateral lung bases. Heart: No significant findings. ABDOMEN: Liver: Unremarkable. Gallbladder: Gallbladder is surgically absent. Biliary ducts: Unremarkable. Pancreas: Unremarkable. Spleen: Unremarkable. Adrenal Glands: Unremarkable. Kidneys and Ureters: Unremarkable. Stomach and Bowel: There is marked fluid and air distension of stomach lumen and proximal to mid small bowel loops with a few air-fluid levels. Terminal ileum is decompressed. Zone of transition is not definitively seen, likely involving terminal ileal loops in right lower quadrant abdomen. Questionable pneumatosis in distended small bowel loops are seen series 4, image 36. Colon loops are partially decompressed. No abnormal bowel wall thickening or mesenteric fat stranding. Appendix is visualized and is within normal limits. Sigmoid diverticulosis is seen without sigmoid colon wall thickening or mesenteric fat stranding. No abscess collection. Peritoneum: No abnormal intraperitoneal fluid. No free air. Ventral Wall: No hernias. Abdominal Nodes: No retroperitoneal or mesenteric adenopathy by size criteria. Vessels: Aorta and inferior vena cava are normal in size. PELVIS: Pelvic Organs: Unremarkable. Bladder: Unremarkable. Pelvic Nodes: No enlarged lymph nodes. Miscellaneous: No hernias are seen. Bones: Unremar no suspicious bony lesion. No acute vertebral body compression fracture. Degenerative disc disease at L5-S1 level is seen. IMPRESSION: 1. Finding is suggestive of distal small bowel obstruction with possible zone of transition involving small bowel loops in right lower quadrant abdomen. Suggestion of air within small bowel wall consistent with pneumatosis intestinalis. No abscess collection. No free fluid or free air. 2. Normal appendix. Normal appearing colon loops. Sigmoid diverticulosis without evidence of acute diverticulitis. Dictated by: Bud Brothers M.D. on 11/25/2021 at 22:04 Approved by: Bud Brothers M.D. on 11/25/2021 at 22:11
[2021-11-25 21:15] LABS: Add Manual Diff / Slide Review NO; Basophils Absolute Auto 100 /uL (0-100); Basophils Percent Auto 0.4 % (0-2); Eosinophils Absolute Auto 200 /uL (0-450); Eosinophils Percent Auto 1.5 % (2-4); Hematocrit 48.7 % (41-53); Hemoglobin 16.6 g/dL (13.5-17.5); Lymphocytes Absolute Auto 1900 /uL (1100-4500); Lymphocytes Percent Auto 13.5 % (25-40); Mean Corpuscular HGB Conc 34.2 % (30-36); Mean Corpuscular Hemoglobin 28.3 PG (26-34); Mean Corpuscular Volume 82.9 fL (80-100); Monocytes Absolute Auto 1400 /uL (0-900); Monocytes Percent Auto 10.4 % (3-14); Neutrophils Absolute Auto 10200 /uL (1500-7000); Neutrophils Percent Auto 74.2 % (50-75); Platelet Count 243 X10^3/uL (150-400); Red Blood Cell Count 5.87 X10^6/uL (4.5-5.9); Red Cell Distribution Width 14.4 % (11.6-14.8); White Blood Cell Count 13.7 X10^3/uL (4.5-11.0)
--- NOTE | 2021-11-25 21:26 | PC.NURSE ---
2114 Patient diaphoretic and clammy, 10/10 generalized abdominal pain. Reports history of intestines twisted. Placed on continuous residential monitor, BP cuff and 02 probe
[2021-11-25 21:29] LABS: Alanine Aminotransferase 43 IU/L (<50); Albumin Globulin Ratio 1.3 (1.0-2.8); Alkaline Phosphatase 91 U/L (38-126); Aspartate Aminotransferase 21 IU/L (17-59); BUN Creatinine Ratio 14.6 (6-22); Bilirubin Total 0.8 mg/dL (0.2-1.3); Blood Urea Nitrogen 15 mg/dL (9-20); Calcium 9.8 mg/dL (8.4-10.2); Carbon Dioxide 19 mmol/L (22-32); Chloride 109 mmol/L (98-107); Estimated Glomerular Filt Rate > 60 mL/min (>60); Globulin 3.9 g/dL (1.7-4.1); Glucose 114 mg/dL (70-100); HEMOLYSIS < 15 (0-50); Lactate (Lactic Acid) 1.2 mmol/L (0.7-2.1); Lipase 38 U/L (23-300); Potassium 4.2 mmol/L (3.4-5.1); Sodium 142 mmol/L (137-145); Total Protein 8.9 g/dL (6.3-8.2)
--- NOTE | 2021-11-25 21:44 | PC.NURSE ---
Patient reassessed for pain, he is able to lay back on gurney and appears much more relaxed. Reports marked improvement in pain.
[2021-11-25] MEDS: HYDROMORPHONE 2 MG INJ (22:51)
[2021-11-25 22:53] LABS: COVID19 -Nasal RAPID Negative (Negative)
--- NOTE | 2021-11-25 23:19 | DI.RAD.S_ITS ---
PROCEDURE: XR CHEST 1V INDICATIONS: check placement of NG tube TECHNIQUE: One view of the chest was acquired. COMPARISON: [facility], , XR CHEST 1V, 02/22/2018, 1:38. FINDINGS: Surgical changes and devices: NG tube tip is below the left hemidiaphragm in the expected location of stomach lumen. Lungs and pleura: Lungs are clear. No pleural effusions or pneumothorax. Mediastinum: Mediastinal contours appear normal. Heart size is normal. Bones and chest wall: No suspicious bony lesions. Overlying soft tissues appear unremarkable. IMPRESSION: NG tube tip is seen the expected location of stomach lumen below left hemidiaphragm. No focal infiltrate, pleural effusion or pneumothorax. Dictated by: Bud Brothers M.D. on 11/25/2021 at 23:33 Approved by: Bud Brothers M.D. on 11/25/2021 at 23:33
[2021-11-25 23:56] LABS: Procalcitonin 0.11 ng/mL (<0.5)
[2021-11-26] MEDS: SODIUM CHLORIDE 0.9% 1,000 ML 60 ML IV (00:25)
[2021-11-26] MEDS: HYDROMORPHONE 0.5 MG INJ IV (00:25)
--- NOTE | 2021-11-26 01:10 | PM.HP.1 ---
History of Present Illness History of Present Illness Date Patient Seen: 11/25/21 Time Patient Seen: 23:08 Chief complaint: ABD PAIN, DYSPNEA Narrative: Juanita Lundy 36-year-old male smoker with history of prior bowel obstruction, gallbladder disease, C diff entercolitis, and cellulitis presented with a chief complaint of a sudden onset and severe epigastric pain about 4 hours ago.?On presentation to the ED patient was writhing in pain and states that nothing makes it better or worse, was 10/10, sharp pressure, constant, no radiation, with nausea without vomiting.? He denies any constipation, but in fact complains of frequent loose stools, he is unable to recall last BM? He denies fever, body aches, chills, cough, congestion, shortness of breath, URI symptoms, hematemesis, dysuria, urgency, frequency, hematuria, melena, or black tarry stool. Denies recent illness injury or trauma. Patient states that he is passing gas and burping. Only prior abdominal surgery is for a gallbladder.? Patient has a history C diff enterocolitis He was admitted 2018 for a bowel obstruction and discharged without surgical intervention. Patient denies any other medical history takes no medications. In the ED patient was hypertensive BP 175/98, tachycardic HR 115, and slightly tachypneic, RR 22. Upon admit to the floor patient is lying in bed states that his epigastric pain is returning 6/10, during intake examined evaluation patient does not open his eyes or make any eye contact with any of the staff in the room. He requested a glass of water advised him that he is NPO he then demanded to have the NG tube removed or he would rip it out himself. Patient demonstrates an aggressive/adversarial affect. He remains motionless in the bed, does not appear to be in any distress at this time and stable. Upon admit to the floor vitals are stable temp 97.5?, BP 142/81, HR 75, R 21, O2 saturation 96% on room air. WBC 13.7 with a left shift neutrophils 10,200, [place] 1400, bicarb 19, lactic and lipase are WNL, COVID negative, abdominal pelvis CT demonstrates distal small-bowel obstruction possible zone of transition involving small bowel loops in right lower quadrant air in the small bowel wall possible pneumatosis intestinalis, sigmoid diverticulosis without diverticulitis. Patient admitted for acute epigastric abdominal pain secondary to small-bowel obstruction, and diverticulosis. Patient History Medical History Diverticulosis History of Clostridioides difficile colitis Surgical History Hx of cholecystectomy Family & Social History Family History Father Diabetes mellitus Hypertension Social History: household members significant other Tobacco & Substance use: Smoking Status Current some day smoker alcohol intake frequency other Substance Use Type marijuana Meds Home Medications and Allergies Home Medications Medication Instructions Recorded Confirmed Type doxycycline hyclate 100 mg tablet 100 mg PO BID #20 tabs 05/15/20 Rx ketorolac 10 mg tablet 10 mg PO Q6H PRN pain #14 tabs 05/15/20 Rx azithromycin 500 mg tablet 1,000 mg PO ONCE Chlamydia #2 tabs 08/23/20 Rx Allergies Allergy/AdvReac Type Severity Reaction Status Date / Time No Known Drug Allergies Allergy Verified 02/21/18 22:59 Review of Systems Review of Systems Narrative: All 12 point systems reviewed with the patient and are negative except otherwise documented. Exam Vital Signs (past 8 hours): - 11/25/21 21:18 11/25/21 21:29 11/25/21 21:30 Temperature 97.5 F L Pulse Rate 115 H 73 Respiratory Rate 22 8 L Blood Pressure 175/98 H 142/81 H Pulse Oximetry 100 98 Oxygen Delivery Method Room Air Oxygen Flow Rate 11/25/21 21:30 11/25/21 22:00 11/25/21 22:30 Temperature Pulse Rate 74 73 75 Respiratory Rate 10 L 19 21 Blood Pressure Pulse Oximetry 97 94 96 Oxygen Delivery Method Oxygen Flow Rate 11/25/21 23:00 11/25/21 23:14 11/25/21 23:14 Temperature Pulse Rate 75 73 Respiratory Rate 17 17 Blood Pressure 135/70 Pulse Oximetry 96 96 Oxygen Delivery Method Oxygen Flow Rate 11/25/21 23:12 11/25/21 23:12 11/25/21 23:22 Temperature 97.0 F L Pulse Rate 71 Respiratory Rate 20 Blood Pressure 122/78 Pulse Oximetry 97 97 Oxygen Delivery Method Room Air Room Air Oxygen Flow Rate 0 11/25/21 23:35 Temperature 97.0 F L Pulse Rate 71 Respiratory Rate 20 Blood Pressure 122/78 Pulse Oximetry 97 Oxygen Delivery Method Oxygen Flow Rate Oxygen Delivery Method Room Air Oxygen Flow Rate 0 Narrative Exam Narrative: General: Patient is a well-developed, well-nourished male, lying in bed in no distress, patient physically is unwilling to open his eyes or interact with staff during admit. HEENT: Normocephalic, atraumatic, oral pharynx is clear and mucous membranes are moist. Neck is supple and symmetric, trachea is midline, no adenopathy, no thyroid enlargement, nontender, no masses palpated. Negative for JVD Chest: Normal AP diameter and contour without kyphoscoliosis, no nasal flaring, retractions, or tachypneic labored breathing. Lungs: Auscultation of all lung garcía are clear without adventitious sounds, wheezes, rhonchi, or rales. Cardio: regular rate and rhythm without murmur, rubs, or gallops, no carotid bruit, no cardiac pulsations present. Abdomen: slighgtly firm, tenderness to the epigastric area, negative for organomegaly, or masses. Bowel sounds are hypoactive, present in all 4 quadrants without guarding or rebound, no CVA tenderness. Musculoskeletal: Muscle strength and tone are equal within normal limits, no deformity, crepitus, effusions, cyanosis, clubbing or edema present. Full range of motion intact radial and pedal pulses are normal. Skin: Warm dry and intact without rashes, ulcerations or petechiae. Neuro: Alert and orientated x3, sensation to touch intact, no gross deficits noted of cranial nerves. Psych: Patient has an passive aggressive affect, unwilling to engage in eye contact or acknowledge staff, patients verbal communications are tense and aggressive in tone, mental status attitude thought context and judgment are appropriate for age. Objective Labs Result Diagrams: 11/25/21 21:10 11/25/21 21:10 Labs: Laboratory Results - last 24 hr 11/25/21 11/25/21 11/25/21 21:10 21:10 21:10 WBC 13.7 H RBC 5.87 Hgb 16.6 Hct 48.7 MCV 82.9 MCH 28.3 MCHC 34.2 RDW 14.4 Plt Count 243 Neut % (Auto) 74.2 Lymph % (Auto) 13.5 L [place] % (Auto) 10.4 Eos % (Auto) 1.5 L Baso % (Auto) 0.4 Neut # (Auto) 49461 H Lymph # (Auto) 1900 [place] # (Auto) 1400 H Eos # (Auto) 200 Baso # (Auto) 100 Sodium 142 Potassium 4.2 Chloride 109 H Carbon Dioxide 19 L BUN 15 Creatinine 1.03 Estimated GFR > 60 BUN/Creatinine Ratio 14.6 Glucose 114 H Lactate 1.2 Calcium 9.8 Total Bilirubin 0.8 AST 21 ALT 43 Alkaline Phosphatase 91 Total Protein 8.9 H Albumin 5.0 Globulin 3.9 Albumin/Globulin Ratio 1.3 Lipase 38 Procalcitonin SARS-CoV-2 (PCR) 11/25/21 11/25/21 21:10 22:31 WBC RBC Hgb Hct MCV MCH MCHC RDW Plt Count Neut % (Auto) Lymph % (Auto) [place] % (Auto) Eos % (Auto) Baso % (Auto) Neut # (Auto) Lymph # (Auto) [place] # (Auto) Eos # (Auto) Baso # (Auto) Sodium Potassium Chloride Carbon Dioxide BUN Creatinine Estimated GFR BUN/Creatinine Ratio Glucose Lactate Calcium Total Bilirubin AST ALT Alkaline Phosphatase Total Protein Albumin Globulin Albumin/Globulin Ratio Lipase Procalcitonin 0.11 SARS-CoV-2 (PCR) Negative Assessment & Plan Assessment & Plan narrative: Juanita Lundy 36-year-old male smoker with history of prior bowel obstruction, gallbladder disease, C diff entercolitis, and cellulitis presented with a chief complaint of a sudden onset and severe epigastric pain about 4 hours ago.?On presentation to the ED patient was writhing in pain, admitted for small-bowel obstruction found on abdominal CT. 1. Abdominal pain, epigastric, acute, secondary to small-bowel obstruction, diverticulosis, chronic, present on admission -ED: hypertensive BP 175/98, tachycardic HR 115, and slightly tachypneic, RR 22. -Admit: 97.5?, BP 142/81, HR 75, R 21, O2 saturation 96% on room air. - WBC 13.7, neut 10,200, [place] 1400, bicarb 19, lactic and lipase- WNL, COVID negative -Abdominal pelvis CT demonstrates distal small-bowel obstruction possible zone of transition involving small bowel loops in right lower quadrant air in the small bowel wall possible pneumatosis intestinalis, sigmoid diverticulosis without diverticulitis. -NPO -Ng Tube placed in ED-On admit He requested a glass of water advised him that he is NPO he then demanded to have the NG tube removed or he would rip it out himself. NG tube was removed. -NS@60cc/HR -Consult Dr. Sharma general cfxorks-Jumltnqg-Ud. [place] advised against antibiotics at this time. -antimetics and Pain management 2. History of C diff enterocolitis, not present on admission -CDiff, stool cultures ordered 3. Tobacco abuse, chronic, present on admission -counseled on tobacco cessation -RN to offer patient nicotine patch if needed Code status:Full Surrogate decision maker: Jeni Herbert-Partner JEANNE PCR:Negative DVT/VTE prophylaxis:Lovenox & SCD's Disposition: Patient admitted for evaluation of acute small-bowel obstruction by General surgery, expected length of stay greater than 2 midnights. I have utilized all available immediate resources to obtain, update, or review the patient's current medications. I confirmed that the patient's advanced care plan is present, Code status is documented and/or surrogate decision maker is listed in the patient's medical record. Time Spent With Patient Critical Care time: I spent a total of [] minutes of critical care time on this patient's care today; this time is exclusive of procedural time.
[2021-11-26] MEDS: HYDROMORPHONE 2 MG INJ IV ×2 (02:18→06:53)
[2021-11-26 03:12] VITALS: O2SAT 96
[2021-11-26 04:30] VITALS: BP 129/74; PULSE 72; RESP 14; TEMP 36.1; O2SAT 96
[2021-11-26 04:41] LABS: Add Manual Diff / Slide Review NO; Basophils Absolute Auto 0 /uL (0-100); Basophils Percent Auto 0.5 % (0-2); Eosinophils Absolute Auto 100 /uL (0-450); Eosinophils Percent Auto 1.3 % (2-4); Hematocrit 43.9 % (41-53); Hemoglobin 14.9 g/dL (13.5-17.5); Lymphocytes Absolute Auto 1200 /uL (1100-4500); Lymphocytes Percent Auto 12.4 % (25-40); Mean Corpuscular HGB Conc 33.9 % (30-36); Mean Corpuscular Hemoglobin 28.4 PG (26-34); Mean Corpuscular Volume 83.8 fL (80-100); Monocytes Absolute Auto 900 /uL (0-900); Monocytes Percent Auto 9.2 % (3-14); Neutrophils Absolute Auto 7200 /uL (1500-7000); Neutrophils Percent Auto 76.6 % (50-75); Platelet Count 203 X10^3/uL (150-400); Red Blood Cell Count 5.24 X10^6/uL (4.5-5.9); Red Cell Distribution Width 14.7 % (11.6-14.8); White Blood Cell Count 9.5 X10^3/uL (4.5-11.0)
[2021-11-26 04:44] LABS: Prothrombin Time 11.8 SECONDS (10.1-12.7)
[2021-11-26 04:49] LABS: BUN Creatinine Ratio 15.5 (6-22); Blood Urea Nitrogen 13 mg/dL (9-20); Carbon Dioxide 19 mmol/L (22-32); Chloride 107 mmol/L (98-107); Estimated Glomerular Filt Rate > 60 mL/min (>60); Glucose 125 mg/dL (70-100); HEMOLYSIS < 15 (0-50); Potassium 4.2 mmol/L (3.4-5.1); Sodium 136 mmol/L (137-145)
[2021-11-26 08:00] VITALS: BP 132/72; PULSE 71; RESP 18; TEMP 36.6; O2SAT 97
[2021-11-26] MEDS: PIPERACILLIN/TAZO 3.375 GM in SODIUM CHLORIDE 0.9% 100 ML IV (09:02)
--- NOTE | 2021-11-26 09:12 | CM.DANOTE ---
DCP Assessment: PCP: Unknown Payor: [facility] HO & Medicaid Pt presented to the ER with abdominal pain. It was found on imaging that pt has a partial bowel obstruction. Pt admitted to the floor for further evaluation and management of symptoms. DCP attempted to meet with the pt this morning. Pt laying in bed with eyes closed. Pt did respond when asked his name. Pt did not want to talk at this time. Pt appeared to be in pain. DCP will attempt to meet with pt another time or when significant other arrives. White board was updated and instructed to call with any questions. P: Awaiting surgical consult. Unclear needs at this time. Tg Hess RN/CARLY Discharge Planning/Care Management CM Discharge Assessment Start: 11/26/21 08:07 Freq: Status: Active Protocol: Document 11/26/21 09:11 MAXIMILIAN (Rec: 11/26/21 09:12 MAXIMILIAN [id number]) Discharge Planning Assessment Assigned [employer] Tg Hess RN/CARLY Advance Directives? No History Provided By Patient,Medical Record Household Members significant other Discharge Plan Home Transportation Arrangement S/O POV Referrals Initiated None needed Additional Comment At this time. Whiteboard Updated in Patient Room with Yes name and ext. # of [employer] Experimental Comment Instructed to call Review Status In Process Please Provide Date Initial DC 11/26/21 Assessment Was Performed Next Review Type Continued Stay Review
[2021-11-26 11:42] VITALS: BP 136/75; PULSE 72; RESP 22; TEMP 36.4; O2SAT 97
--- NOTE | 2021-11-26 12:26 | PM.PN.1 ---
Subjective Subjective Date Patient Seen: 11/26/21 Time Patient Seen: 08:00 Interval history: He continues to have abdominal pain. Overnight he demanded NG tube be taken out. He does not have an appetite. No bowel movement. Says passing gas. Exam Vital Signs (past 8 hours): - 11/26/21 04:30 11/26/21 08:00 11/26/21 11:42 Temperature 97.0 F L 97.9 F 97.5 F L Pulse Rate 72 71 72 Respiratory Rate 14 18 22 Blood Pressure 129/74 132/72 136/75 Pulse Oximetry 96 97 97 Oxygen Flow Rate 0 0 0 Oxygen Delivery Method Room Air Oxygen Flow Rate 0 Narrative Exam Narrative: GEN: no acute distress ABD: soft, mild tenderness, no rebound guarding CV: regular rate and rhythm, no murmurs PULM: clear bilaterally Objective Labs Result Diagrams: 11/26/21 04:31 11/26/21 04:31 Labs: Laboratory Results - last 24 hr 11/25/21 11/25/21 11/25/21 21:10 21:10 21:10 WBC 13.7 H RBC 5.87 Hgb 16.6 Hct 48.7 MCV 82.9 MCH 28.3 MCHC 34.2 RDW 14.4 Plt Count 243 Neut % (Auto) 74.2 Lymph % (Auto) 13.5 L [place] % (Auto) 10.4 Eos % (Auto) 1.5 L Baso % (Auto) 0.4 Neut # (Auto) 98254 H Lymph # (Auto) 1900 [place] # (Auto) 1400 H Eos # (Auto) 200 Baso # (Auto) 100 PT INR Sodium 142 Potassium 4.2 Chloride 109 H Carbon Dioxide 19 L BUN 15 Creatinine 1.03 Estimated GFR > 60 BUN/Creatinine Ratio 14.6 Glucose 114 H Lactate 1.2 Calcium 9.8 Total Bilirubin 0.8 AST 21 ALT 43 Alkaline Phosphatase 91 Total Protein 8.9 H Albumin 5.0 Globulin 3.9 Albumin/Globulin Ratio 1.3 Lipase 38 Procalcitonin SARS-CoV-2 (PCR) 11/25/21 11/25/21 11/26/21 21:10 22:31 04:31 WBC 9.5 RBC 5.24 Hgb 14.9 Hct 43.9 MCV 83.8 MCH 28.4 MCHC 33.9 RDW 14.7 Plt Count 203 Neut % (Auto) 76.6 H Lymph % (Auto) 12.4 L [place] % (Auto) 9.2 Eos % (Auto) 1.3 L Baso % (Auto) 0.5 Neut # (Auto) 7200 H Lymph # (Auto) 1200 [place] # (Auto) 900 Eos # (Auto) 100 Baso # (Auto) 0 PT INR Sodium Potassium Chloride Carbon Dioxide BUN Creatinine Estimated GFR BUN/Creatinine Ratio Glucose Lactate Calcium Total Bilirubin AST ALT Alkaline Phosphatase Total Protein Albumin Globulin Albumin/Globulin Ratio Lipase Procalcitonin 0.11 SARS-CoV-2 (PCR) Negative 11/26/21 11/26/21 04:31 04:31 WBC RBC Hgb Hct MCV MCH MCHC RDW Plt Count Neut % (Auto) Lymph % (Auto) [place] % (Auto) Eos % (Auto) Baso % (Auto) Neut # (Auto) Lymph # (Auto) [place] # (Auto) Eos # (Auto) Baso # (Auto) PT 11.8 INR 1.0 Sodium 136 L Potassium 4.2 Chloride 107 Carbon Dioxide 19 L BUN 13 Creatinine 0.84 Estimated GFR > 60 BUN/Creatinine Ratio 15.5 Glucose 125 H Lactate Calcium 9.0 Total Bilirubin AST ALT Alkaline Phosphatase Total Protein Albumin Globulin Albumin/Globulin Ratio Lipase Procalcitonin SARS-CoV-2 (PCR) [facility] Medical History Diverticulosis History of Clostridioides difficile colitis Surgical History Hx of cholecystectomy Family History Father Diabetes mellitus Hypertension Social History household members: significant other Smoking Status: Current some day smoker Assessment & Plan Assessment & Plan narrative: Mr. Lundy is a 36M with PMH smoking, SBO, c diff, cholecystectomy who presents with abdominal pain concerning for possible SBO. complaint of a sudden onset and severe epigastric pain about 4 hours ago.?On presentation to the ED patient was writhing in pain, admitted for small-bowel obstruction found on abdominal CT. 1. Abdominal pain acute, concerning for SBO -WBC 13 on admission, patient with mild acidosis with hco3 of 19 -CT shows distal small-bowel obstruction possible zone of transition involving small bowel loops in right lower quadrant air in the small bowel wall possible pneumatosis intestinalis, sigmoid diverticulosis without diverticulitis. -NPO -refused NG tube -IV fluids -ordered for antibiotics with finding of pneumatosis -surgery consulted -check C diff and stool cultures -IV pain medications and zofran ordered 2. Tobacco abuse, chronic, present on admission -counseled on tobacco cessation -offer patient nicotine patch if needed Code status:Occupational Therapist Assistant Spent With Patient Critical Care time: I spent a total of [] minutes of critical care time on this patient's care today; this time is exclusive of procedural time.
--- NOTE | 2021-11-26 12:56 | PC.NURSE ---
[id number] call light answered at 1240. pt states he's leaving. I can't wait any longer. This RN called who states he's in ED seeing pts but can see pt after but won't be any time soon or states pt may leave AMA. Reviewed choices with pt as well as educating pt on what leaving AMA entails. Pt requesting AMA. Form signed. pt given paperwork on SBO. States flatus +. Instructed to proceed slowly with PO intake and in symptoms worsen may return to ED. IV DC'd and pt instructed to notify RN when his ride arrives.
== END 2021-11-26 13:07 | disposition left against medical advice (07) | DRG 247 ==
LOC: ED 21:03 → AC 22:53
PROVIDERS: Admitting Provider Nurse Practitioner Family; Emergency Provider Emergency Medicine; PCP Student in an Organized Health Care Education/Training Program; Referring Provider Emergency Medicine; Visit Provider Nurse Practitioner Family
DX: K56.609 Unspecified intestinal obstruction, unspecified as to partial versus complete obstruction (principal); F17.200 Nicotine dependence, unspecified, uncomplicated; Z53.29 Procedure and treatment not carried out because of patient's decision for other reasons; Z20.822 Contact with and (suspected) exposure to COVID-19; Z86.19 Personal history of other infectious and parasitic diseases
CPT/HCPCS: 36415; 71045; 74177; 80048; 80053; 82962; 83605; 83690; 84145; 85025; 85610; 87040; 87635; 96374; 96375; 99284; 99285; C9803; C9113; J1170; J2405; J2543; Q9967

== ENCOUNTER 2022-06-27 04:37 | Observation (INO) | payer OTHER, MEDICAID, SELFPAY ==
[2022-06-27] VITALS (7 sets, daily range): BP systolic 117–159; BP diastolic 74–94; PULSE 82–112; RESP 14–22; TEMP 36.1–36.9; O2SAT 95–100; BMI 32.8
--- NOTE | 2022-06-27 | DI.RAD.S_ITS ---
PROCEDURE: XR GASTROGRAFIN CHALLENGE COMPARISON: [facility], CT, CT ABDOMEN PELVIS W CON, 06/27/2022, 5:18. INDICATIONS: sbo FINDINGS: Oral contrast fluid is prominent within the small bowel. The exact anatomy of the large bowel is not established at the rectum area and the sigmoid area, but at least there appears to be positive oral contrast extending cephalad within the right colon. IMPRESSION: A total small-bowel obstruction does not appear currently present but prominent small bowel dilatation persists. On review of the prior CT abdomen/pelvis with contrast performed 06/27/22 the small bowel is collapsed beyond the left mid abdomen, lower renal level, beyond a point of small bowel abnormal mural thickening. From that examination a complete obstruction but a high-grade stenosis would be anticipated as cause of these findings. Dictated by: Tae De Anda M.D. on 06/28/2022 at 15:14 Approved by: Tae De Anda M.D. on 06/28/2022 at 15:18
--- NOTE | 2022-06-27 05:02 | DI.CT.S_ITS ---
PROCEDURE: CT ABDOMEN PELVIS W CON INDICATIONS: IV contrast only/abdominal pain/possible bowel obstruction TECHNIQUE: After the administration of IV contrast, axial sections were acquired from the lung bases to the pubic symphysis. Coronal and sagittal reformats were performed. For radiation dose reduction, the following was used: automated exposure control, adjustment of mA and/or kV according to patient size. COMPARISON: [facility], CT, CT ABDOMEN PELVIS W CON, 08/17/2019, 4:53. [facility], CT, CT ABDOMEN PELVIS W CON, 05/21/2018, 13:15. [facility], CT, CT ABDOMEN PELVIS W CON, 11/25/2021, 21:45. FINDINGS: Image quality: Excellent. Lung bases: Unremarkable. Heart: No significant findings. ABDOMEN: Liver: Normal size. Mild hepatic steatosis. Gallbladder: Surgically absent. Biliary ducts: Unremarkable. Pancreas: Unremarkable. Spleen: Unremarkable. Adrenal Glands: Unremarkable. Kidneys and Ureters: Unremarkable. Stomach and Bowel: Stomach is mildly distended with an air-fluid level. Small intestine is dilated measuring up to 5.6 cm in diameter. There are multiple air-fluid levels within small intestine. There is transitional point mid left abdomen. There is mild segmental thickening of proximal small intestine (series 2, image 46), which could be secondary to inflammatory change or artifact. Colon is unremarkable. Normal appendix. Peritoneum: No abnormal intraperitoneal fluid. No free air. Ventral Wall: There is a small fat containing periumbilical ventral hernia. Abdominal Nodes: No retroperitoneal or mesenteric adenopathy by size criteria. Numerous subcentimeter mesenteric lymph nodes are noted, nonspecific. Vessels: Aorta and inferior vena cava are normal in size. PELVIS: Pelvic Organs: Unremarkable. Bladder: Unremarkable. Pelvic Nodes: No enlarged lymph nodes. Miscellaneous: No inguinal hernias are seen. Small left hydrocele is present in scrotum. Bones: Unremarkable. IMPRESSION: 1. The CT findings are consistent with small bowel obstruction. The transitional point is in the left mid abdomen. 2. Small fat containing periumbilical ventral hernia. No significant discrepancy with the coater brake linings radiology preliminary report. Dictated by: Kamari Angeles M.D. on 06/27/2022 at 6:38 Approved by: Kamari Angeles M.D. on 06/27/2022 at 6:51
--- NOTE | 2022-06-27 05:05 | ED_ITS ---
HPI - Abdominal Pain General Chief Complaint: Abdominal Pain Stated Complaint: SOB, abd pain, muscle cramps Time Seen by Provider: 06/27/22 04:57 Source: patient Mode of arrival: Ambulatory History of Present Illness HPI narrative: Patient here for abdominal pain nausea and vomiting. Started 9:00 p.m. last night. Patient states it feels the same as bowel obstruction he had last year. Patient has history of cholecystectomy and diverticulosis. Patient denies any black or bloody stools. Patient did leave against medical advice November 26, 2021 after being admitted for partial bowel obstruction. Review of November 25, 2021 ER visit here noted that he did not receive surgical intervention for bowel obstructions in the past. Please see admission notes and discharge note from November admission and discharge in 2021 Related Data Home Medications Medication Instructions Recorded Confirmed No Known Home Medications 06/27/22 06/27/22 Allergies Allergy/AdvReac Type Severity Reaction Status Date / Time No Known Drug Allergies Allergy Verified 02/21/18 22:59 Review of Systems Review of Systems Narrative: GENERAL: negative chills, fatigue, malaise, fever, sweats. HEENT: negative sinus pain, ear pain, sore throat RESPIRATORY: negative dyspnea, cough CARDIOVASCULAR: negative chest pain, palpitations GASTROINTESTINAL: Positive nausea, vomiting, abdominal pain : negative dysuria, frequency, hematuria MUSCULOSKELETAL: negative muscle or bony pain SKIN: negative rash, skin lesions NEUROLOGIC: negative weakness, numbness ROS Unobtainable: All systems reviewed & are unremarkable except as noted in HPI and below Patient History Medical History Diverticulosis History of Clostridioides difficile colitis Surgical History Hx of cholecystectomy Family History Father Diabetes mellitus Hypertension Social History household members: significant other Smoking Status: Current some day smoker Smoking Status: Current some day smoker alcohol intake frequency: other Substance Use Type: marijuana Exam Narrative Exam Narrative: GENERAL: in no distress, not toxic not dyspneic HEAD: Normocephalic. EYES: Pupils equal round ENT: Mucous membranes moist. NECK: Trachea midline. CARDIOVASCULAR: Regular rate and rhythm without murmurs RESPIRATORY: Clear to auscultation. Breath sounds equal bilaterally. No wheezes, rales, or rhonchi. GASTROINTESTINAL: Abdomen soft, reproducible epigastric tenderness. No peritoneal signs. No pain out of proportion to exam. Bowel sounds are present. EXTREMITIES: No gross deformities. BACK: No flank tenderness. NEURO: AOx4. SKIN: Warm, patient is diaphoretic PSYCH: Not anxious, is cooperative Initial Vital Signs Initial Vital Signs: Vital Signs Temperature 97.8 F 06/27/22 04:45 Pulse Rate 112 H 06/27/22 04:45 Respiratory Rate 22 06/27/22 04:45 Blood Pressure 159/94 H 06/27/22 04:45 Pulse Oximetry 100 06/27/22 04:45 Oxygen Delivery Method Room Air 06/27/22 04:45 Course Orders Ordered: Acetaminophen (Acetaminophen 325 Mg Tablet) 650 mg PO Q6H PRN PRN Reason: Fever/Mild Pain (1-3) Last Admin: 06/27/22 16:15 Dose: 650 mg Documented By: Admin: 06/27/22 09:24 Dose: 650 mg Documented By: RHONDA Heparin Sodium (Porcine) (Heparin 5,000 Unit/Ml Vial) 5,000 unit SUBCUT BID DORIAN Last Admin: 06/27/22 09:27 Dose: Not Given Documented By: RHONDA Hydromorphone HCl (Hydromorphone 0.5 Mg Inj) 0.5 mg IV Q2H PRN PRN Reason: Pain, Severe (7-10) Last Admin: 06/27/22 16:15 Dose: 0.5 mg Documented By: Admin: 06/27/22 09:25 Dose: 0.5 mg Documented By: RHONDA Ibuprofen (Ibuprofen 600 Mg Tablet) 600 mg PO Q6H PRN PRN Reason: Fever/Mild Pain (1-3) Last Admin: 06/27/22 16:15 Dose: 600 mg Documented By: Admin: 06/27/22 09:29 Dose: 600 mg Documented By: RHONDA Morphine Sulfate (Morphine 2 Mg/Ml Inj) 2 mg IV Q2HR PRN PRN Reason: Pain, Moderate (4-6) Naloxone HCl (Naloxone 0.4 Mg/Ml Vial) 0.2 mg IV Q2MIN PRN PRN Reason: Opiate Reversal Ondansetron HCl (Ondansetron 4 Mg/2 Ml Inj) 4 mg IV Q4HR PRN PRN Reason: Nausea And Vomiting Prochlorperazine (Prochlorperazine 10 Mg/2 Ml Vial) 10 mg IV Q6HR PRN PRN Reason: Nausea And Vomiting Scopolamine (Scopolamine 1 Patch) 1 patch TOP Q72H ON LICENSE OF [facility] Last Admin: 06/27/22 09:25 Dose: 1 patch Documented By: RHONDA Discontinued Medications Sodium Chloride (Normal Saline 0.9%) 1,000 mls @ 1,000 mls/hr IV BOLUS ONE Stop: 06/27/22 06:00 Last Infusion: 06/27/22 06:37 Dose: 0 mls/hr Documented By: Admin: 06/27/22 05:19 Dose: 1,000 mls/hr Documented By: SYDNEY Sodium Chloride (Normal Saline 0.9%) 1,000 mls @ 125 mls/hr IV CONT ON LICENSE OF [facility] Last Admin: 06/27/22 16:16 Dose: 125 mls/hr Documented By: Infusion: 06/27/22 16:16 Dose: 125 mls/hr Documented By: Infusion: 06/27/22 08:58 Dose: 0 mls/hr Documented By: Admin: 06/27/22 07:23 Dose: 125 mls/hr Documented By: ALMA Morphine Sulfate (Morphine 4 Mg/Ml Inj) 4 mg IV NOW ONE Stop: 06/27/22 05:02 Last Admin: 06/27/22 05:19 Dose: 4 mg Documented By: SYDNEY Ondansetron HCl (Ondansetron 4 Mg/2 Ml Inj) 4 mg IV NOW ONE Stop: 06/27/22 05:02 Last Admin: 06/27/22 05:19 Dose: 4 mg Documented By: SYDNEY Vital Signs Vital signs: Vital Signs - 8 hr 06/27/22 04:45 Temperature 97.8 F Pulse Rate 112 H Respiratory Rate 22 Blood Pressure 159/94 H Pulse Oximetry 100 Oxygen Delivery Method Room Air MDM - Abdominal Pain Lab Data 06/27/22 05:20 06/27/22 05:20 Labs: Lab Results 06/27/22 06/27/22 Range/Units 05:20 05:20 WBC 12.6 H (4.5-11.0) X10^3/uL RBC 6.18 H (4.5-5.9) X10^6/uL Hgb 17.7 H (13.5-17.5) g/dL Hct 50.9 (41-53) % MCV 82.3 (80-100) fL MCH 28.7 (26-34) PG MCHC 34.9 (30-36) % RDW 14.8 (11.6-14.8) % Plt Count 197 (150-400) X10^3/uL Neut % (Auto) 80.9 H (50-75) % Lymph % (Auto) 5.3 L (25-40) % [place]ett % (Auto) 13.4 (3-14) % Eos % (Auto) 0.1 L (2-4) % Baso % (Auto) 0.3 (0-2) % Neut # (Auto) 80231 H (5062-0830) /uL Lymph # (Auto) 700 L (6622-8235) /uL [place]ett # (Auto) 1700 H (0-900) /uL Eos # (Auto) 0 (0-450) /uL Baso # (Auto) 0 (0-100) /uL RBC Morphology Normal morphology Sodium 132 L (137-145) mmol/L Potassium 3.8 (3.4-5.1) mmol/L Chloride 90 L (98-107) mmol/L Carbon Dioxide 29 (22-32) mmol/L BUN 14 (9-20) mg/dL Creatinine 1.33 H (0.66-1.25) mg/dL Estimated GFR > 60 (>60) mL/min BUN/Creatinine Ratio 10.5 (6-22) Glucose 127 H (70-100) mg/dL Calcium 9.7 (8.4-10.2) mg/dL Total Bilirubin 1.9 H (0.2-1.3) mg/dL AST 38 (17-59) IU/L ALT 37 (<50) IU/L Alkaline Phosphatase 90 (38-126) U/L Total Protein 9.3 H (6.3-8.2) g/dL Albumin 5.2 H (3.5-5.0) g/dL Globulin 4.1 (1.7-4.1) g/dL Albumin/Globulin Ratio 1.3 (1.0-2.8) Lipase 18 L (23-300) U/L Imaging Data CT scan - abdomen/pelvis: Radiologist's Impression: Findings compatible with small-bowel obstruction with transition point within the left upper quadrant IMPRESSION:? ? 1.? The CT findings are consistent with small bowel obstruction.? The transitional point is in the left mid abdomen. ? 2. Small fat containing periumbilical ventral hernia.? ? 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 Abdominal x-ray: Radiologist's Impression: NG-tube adequately positioned within the stomach MDM Narrative Medical decision making narrative: atient here for abdominal pain nausea and vomiting. Started 9:00 p.m. last night. Patient states it feels the same as bowel obstruction he had last year. Patient has history of cholecystectomy and diverticulosis. Patient denies any black or bloody stools. Patient did leave against medical advice November 26, 2021 after being admitted for partial bowel obstruction. Review of November 25, 2021 ER visit here noted that he did not receive surgical intervention for bowel obstructions in the past. Please see admission notes and discharge note from November admission and discharge in 2021 After history and exam CBC CMP lipase morphine Zofran normal saline CT abdomen pelvis [facility] CC: Abdominal pain Complicating co-morbidities: Prior history of bowel obstruction cholecystectomy Data collected from: Patient Medical records reviewed: ER visit admission H&P discharge summary from November 25, 2021 November 26, 2021 at this hospital Differential considered: Includes but not limited to bowel obstruction diverticulitis appendicitis Exam documented above, pertinent findings include: Diaphoresis/epigastric tenderness Lab Test results independently reviewed as above. Pertinent findings: WBC 12.6 hemoglobin 17.7 hematocrit 50.9 sodium 132 potassium 3.8 chloride 90 bicarb 29 creatinine 1.33 glucose 127 total bilirubin 1.9 AST 38 ALT 37 Imaging studies independently reviewed: CT abdomen pelvis small bowel obstruction in left upper quadrant X-ray abdomen nasogastric tube adequate position within the stomach Consultations: 6:15 a.m.. Spoke with General surgery Dr. Sharma, she will admit patient Treatments: Morphine Zofran normal saline Re-evaluations: Updated patient, understands will need NG tube and admission. Discussion: Appropriate for admission for small-bowel obstruction. Patient will need decompression. Surgical consult completed. Diagnosis: Small-bowel obstruction Discharge Plan Departure Patient Disposition: Admitted as Observation Clinical Impression: Small bowel obstruction Admit Date/Time: 06/27/22 06:25 Admit Provider: Cathryn Sharma
[2022-06-27] MEDS: SODIUM CHLORIDE 0.9% 1,000 ML 1000 ML IV (05:19)
[2022-06-27] MEDS: MORPHINE 4 MG/ML INJ IV (05:19)
[2022-06-27] MEDS: ONDANSETRON 4 MG/2 ML INJ IV ×2 (05:19→20:44)
[2022-06-27 05:29] LABS: Basophils Absolute Auto 0 /uL (0-100); Basophils Percent Auto 0.3 % (0-2); Eosinophils Absolute Auto 0 /uL (0-450); Eosinophils Percent Auto 0.1 % (2-4); Hematocrit 50.9 % (41-53); Hemoglobin 17.7 g/dL (13.5-17.5); Lymphocytes Absolute Auto 700 /uL (1100-4500); Lymphocytes Percent Auto 5.3 % (25-40); Mean Corpuscular HGB Conc 34.9 % (30-36); Mean Corpuscular Hemoglobin 28.7 PG (26-34); Mean Corpuscular Volume 82.3 fL (80-100); Monocytes Absolute Auto 1700 /uL (0-900); Monocytes Percent Auto 13.4 % (3-14); Neutrophils Absolute Auto 10200 /uL (1500-7000); Neutrophils Percent Auto 80.9 % (50-75); Platelet Count 197 X10^3/uL (150-400); Red Blood Cell Count 6.18 X10^6/uL (4.5-5.9); Red Cell Distribution Width 14.8 % (11.6-14.8); White Blood Cell Count 12.6 X10^3/uL (4.5-11.0)
[2022-06-27 05:30] LABS: Add Manual Diff / Slide Review SLIDE REVIEW
[2022-06-27 05:40] LABS: Alanine Aminotransferase 37 IU/L (<50); Albumin 5.2 g/dL (3.5-5.0); Albumin Globulin Ratio 1.3 (1.0-2.8); Alkaline Phosphatase 90 U/L (38-126); Aspartate Aminotransferase 38 IU/L (17-59); BUN Creatinine Ratio 10.5 (6-22); Bilirubin Total 1.9 mg/dL (0.2-1.3); Blood Urea Nitrogen 14 mg/dL (9-20); Calcium 9.7 mg/dL (8.4-10.2); Carbon Dioxide 29 mmol/L (22-32); Chloride 90 mmol/L (98-107); Estimated Glomerular Filt Rate > 60 mL/min (>60); Globulin 4.1 g/dL (1.7-4.1); Glucose 127 mg/dL (70-100); HEMOLYSIS 55 (0-50); Lipase 18 U/L (23-300); Sodium 132 mmol/L (137-145); Total Protein 9.3 g/dL (6.3-8.2)
[2022-06-27 05:41] LABS: Potassium 3.8 mmol/L (3.4-5.1)
[2022-06-27 05:43] LABS: RBC Morphology Normal Morphology
--- NOTE | 2022-06-27 06:19 | DI.RAD.S_ITS ---
PROCEDURE: XR ABDOMEN 1V INDICATIONS: ng tube placement TECHNIQUE: One view of the abdomen acquired. COMPARISON: None. FINDINGS: Surgical changes and devices: There is a nasogastric tube with the tip in the stomach. Bowel: Dilated small bowel loops are noted in mid abdomen. Soft tissues: No suspicious abdominal calcifications. Visualized solid organ contours appear normal in size. Bones: No suspicious bony lesions. IMPRESSION: Nasogastric tube in the stomach. Dictated by: Kamari Angeles M.D. on 06/27/2022 at 9:01 Approved by: Kamari Angeles M.D. on 06/27/2022 at 9:01
[2022-06-27] MEDS: SODIUM CHLORIDE 0.9% 1,000 ML 125 ML IV ×2 (07:23→16:16)
[2022-06-27 07:30] LABS: COVID19 -Nasal RAPID Negative (Negative)
--- NOTE | 2022-06-27 09:13 | PC.NURSE ---
Day shift: Pt in room from ED at approx 0900. He does complain of ABD pain and appears very uncomfortable. Per ED RN report Pt removed NG tube approx 30 minutes ago. Oriented to room and call light. HR 111 and other VS WNL. RA 100%.
[2022-06-27] MEDS: ACETAMINOPHEN 325 MG TABLET 650 MG PO ×2 (09:24→16:15)
[2022-06-27] MEDS: HYDROMORPHONE 0.5 MG INJ IV ×3 (09:25→20:44)
[2022-06-27] MEDS: SCOPOLAMINE 1 PATCH TOP (09:25)
[2022-06-27] MEDS: IBUPROFEN 600 MG TABLET PO ×2 (09:29→16:15)
--- NOTE | 2022-06-27 11:22 | PC.NURSE ---
Day shift: Pt asleep at this time and has been for approx 1 hour (1123).
--- NOTE | 2022-06-27 13:41 | PM.HP.1 ---
History of Present Illness History of Present Illness Date Patient Seen: 06/27/22 Time Patient Seen: 17:05 Chief complaint: SOB, abd pain, muscle cramps Narrative: 36-year-old man with a history of abdominal surgery who presented to the emergency department today with abdominal pain and nausea.. Several prior admissions for partial bowel obstruction over the years which have resolved non operatively. CT abdomen pelvis obtained at admission demonstrates dilated loops of small bowel with a transition point in the left abdomen. No free air or free fluid. A nasogastric tube was introduced however the patient removed it shortly after placement. No emesis since admission. Gastrografin challenge performed demonstrates passage of contrast into the colon within 8 hours per my read. Prior abdominal surgery is laparoscopic cholecystectomy. [facility] Medical History Diverticulosis History of Clostridioides difficile colitis Surgical History Hx of cholecystectomy Family History Father Diabetes mellitus Hypertension Social History household members: significant other Smoking Status: Current some day smoker Meds Home Medications and Allergies Home Medications Medication Instructions Recorded Confirmed Type No Known Home Medications 06/27/22 06/27/22 History Allergies Allergy/AdvReac Type Severity Reaction Status Date / Time No Known Drug Allergies Allergy Verified 02/21/18 22:59 Exam Vital Signs (past 8 hours): - 06/27/22 09:11 06/27/22 09:13 06/27/22 13:06 Temperature 98.2 F 97.5 F L Pulse Rate 110 H 94 H Respiratory Rate 14 18 Blood Pressure 117/86 128/83 Pulse Oximetry 100 100 96 Oxygen Delivery Method Room Air Oxygen Flow Rate 0 0 Oxygen Delivery Method Room Air Oxygen Flow Rate 0 Narrative Exam Narrative: GENERAL: Adult man alert oriented no distress HEENT: Normocephalic, atraumatic. No scleral icterus CHEST: Rising symmetrically. No audible wheezes CARDIOVASCULAR: Warm and well perfused. Regular rate ABDOMEN: Soft, minimally distended no peritonitis EXTREMITIES: Normal tone and without edema. NEUROLOGIC: Moving all extremities spontaneously. No gross motor deficits. Objective Labs 06/27/22 05:20 06/27/22 05:20 Labs: Laboratory Results - last 24 hr 06/27/22 06/27/22 06/27/22 05:20 05:20 06:40 WBC 12.6 H RBC 6.18 H Hgb 17.7 H Hct 50.9 MCV 82.3 MCH 28.7 MCHC 34.9 RDW 14.8 Plt Count 197 Neut % (Auto) 80.9 H Lymph % (Auto) 5.3 L [place] % (Auto) 13.4 Eos % (Auto) 0.1 L Baso % (Auto) 0.3 Neut # (Auto) 12564 H Lymph # (Auto) 700 L [place] # (Auto) 1700 H Eos # (Auto) 0 Baso # (Auto) 0 RBC Morphology Normal morphology Sodium 132 L Potassium 3.8 Chloride 90 L Carbon Dioxide 29 BUN 14 Creatinine 1.33 H Estimated GFR > 60 BUN/Creatinine Ratio 10.5 Glucose 127 H Calcium 9.7 Total Bilirubin 1.9 H AST 38 ALT 37 Alkaline Phosphatase 90 Total Protein 9.3 H Albumin 5.2 H Globulin 4.1 Albumin/Globulin Ratio 1.3 Lipase 18 L SARS-CoV-2 (PCR) Negative Assessment & Plan Assessment and plan (1) Small bowel obstruction: Problem details: 36-year-old man with prior abdominal surgery and a small small-bowel obstruction. No alarming features on examination or imaging. CT abdomen pelvis demonstrates small-bowel obstruction with perhaps a transition within the left abdomen. Gastrografin challenge was performed the day of admission and after several hours the barium is observed within the colon on my read of the film. Official radiology reading is pending. Begin with trial of clear liquid diet if tolerates can advance. No indication for surgical intervention at this time. Status: Acute
[2022-06-27] MEDS: HEPARIN 5,000 UNIT/ML VIAL 5000 UNIT SUBCUT (20:44)
[2022-06-28] MEDS: HYDROMORPHONE 0.5 MG INJ IV ×4 (00:11→11:01)
[2022-06-28 03:33] VITALS: BP 125/77; PULSE 79; RESP 18; TEMP 36.2; O2SAT 96
[2022-06-28] MEDS: ONDANSETRON 4 MG/2 ML INJ IV (04:05)
[2022-06-28] MEDS: IBUPROFEN 600 MG TABLET PO (07:46)
[2022-06-28] MEDS: ACETAMINOPHEN 325 MG TABLET 650 MG PO (07:46)
[2022-06-28 07:50] VITALS: BP 137/76; PULSE 76; RESP 18; TEMP 36.9; O2SAT 96
[2022-06-28 08:34] VITALS: O2SAT 99
[2022-06-28 11:00] VITALS: BP 135/67; PULSE 91; RESP 16; TEMP 36.2; O2SAT 98
--- NOTE | 2022-06-28 12:50 | PM.DS.1 ---
History of Present Illness History of Present Illness Date Patient Seen: 06/28/22 Time Patient Seen: 12:51 Chief complaint: SOB, abd pain, muscle cramps Narrative: 36-year-old man with a history of abdominal surgery who presented to the emergency department today with abdominal pain and nausea.. Several prior admissions for partial bowel obstruction over the years which have resolved non operatively. CT abdomen pelvis obtained at admission demonstrates dilated loops of small bowel with a transition point in the left abdomen. No free air or free fluid. A nasogastric tube was introduced however the patient removed it shortly after placement. No emesis since admission. Gastrografin challenge performed demonstrates passage of contrast into the colon within 8 hours per my read. Prior abdominal surgery is laparoscopic cholecystectomy. Discharge Providers Provider Date of admission: 06/27/22 06:25 Discharge Date: 06/28/22 Primary care physician: Evangelina Gillespie PA-C Discharge provider: Rolf Workman MD Summary Hospital Course Discharge Diagnosis: Small-bowel obstruction Hospital Course: 36-year-old man history of previous abdominal surgery who is admitted to the hospital for management of a small-bowel obstruction. He underwent a Gastrografin challenge which was successful and demonstrated transit of contrast into the colon. He had return of bowel function his diet was advanced and at the time of discharge he is tolerant of a regular diet ambulatory and his pain is well controlled. Exam Vital Signs (past 8 hours): - 06/28/22 07:50 06/28/22 08:34 06/28/22 11:00 Temperature 98.5 F 97.1 F L Pulse Rate 76 91 H Respiratory Rate 18 16 Blood Pressure 137/76 135/67 Pulse Oximetry 96 99 98 Oxygen Delivery Method Room Air Oxygen Flow Rate 0 0 Oxygen Delivery Method Room Air Oxygen Flow Rate 0 Narrative Exam Narrative: General adult man alert oriented no acute distress Chest nonlabored respiration Abdomen soft minimally distended nontender Objective Labs 06/27/22 05:20 06/27/22 05:20 [facility] Medical History Diverticulosis History of Clostridioides difficile colitis Surgical History Hx of cholecystectomy Family History Father Diabetes mellitus Hypertension Social History household members: significant other Smoking Status: Current some day smoker Discharge Plan Discharge Plan Patient Disposition: Home Provider Discharge Comment: Return to the emergency room for worsening abdominal pain nausea vomiting Discharge orders & Medications Prescriptions: No Action No Known Home Medications Follow up/Referrals: Evangelina Gillespie, YANELI [Primary Care Provider] - Diet/Activity/Treatments Diet: Diet as Tolerated Visit Report/Discharge Packet Instructions: Small Bowel Obstruction Stand Alone Forms: Patient Portal/API, Stroke Signs & Symptoms Discharge Data Primary Care Provider: Evangelina Gillespie
--- NOTE | 2022-06-28 14:21 | PC.NURSE ---
Day shift: Pt left unit via WC. Taken to car that his Spouse is driving at approx 1520. Paperwork signed and all questions answered. No new MD scripts. Pt has all personal belongings.
== END 2022-06-28 14:22 | disposition home or self-care (01) | DRG 247 ==
LOC: ED 06:26 → AC 09:32
PROVIDERS: Admitting Provider Surgery; Emergency Provider Emergency Medicine; PCP Student in an Organized Health Care Education/Training Program; Referring Provider Emergency Medicine; Visit Provider Surgery
DX: K56.609 Unspecified intestinal obstruction, unspecified as to partial versus complete obstruction (principal); F17.200 Nicotine dependence, unspecified, uncomplicated; Z20.822 Contact with and (suspected) exposure to COVID-19
CPT/HCPCS: 36415; 74018; 74177; 80053; 83690; 85025; 87635; 96374; 96375; 96376; 99221; 99238; 99284; C9803; G0378; J1170; J1644; J2270; J2405; Q9967

== ENCOUNTER 2022-06-28 20:41 | Emergency (ER) | payer OTHER, MEDICAID, SELFPAY ==
[2022-06-27 09:05] VITALS: BMI 32.8
[2022-06-28 20:46] VITALS: BP 111/57; PULSE 106; RESP 20; TEMP 37.5; O2SAT 99; BMI 32.8
--- NOTE | 2022-06-28 21:00 | DI.RAD.S_ITS ---
PROCEDURE: XR ACUTE ABDOMEN SERIES INDICATIONS: abd pain, worse than previous. recent partial small bowel ob TECHNIQUE: One view chest and two views of the abdomen were acquired. COMPARISON: [facility], CR, XR GASTROGRAFIN CHALLENGE, 06/27/2022, 13:24. [facility], CR, XR ABDOMEN 1V, 06/27/2022, 6:20. [facility], CR, XR ACUTE ABDOMEN SERIES, 02/21/2018, 23:49. FINDINGS: Surgical changes and devices: Cholecystectomy Chest: Lungs are clear. Heart size is normal. No pleural effusions. No pneumoperitoneum. Abdomen: Stacked loops of dilated small bowel can be seen that measure up to 7 cm. A few scattered air-fluid levels are seen. Oral contrast can be seen within the colon. Bones: No suspicious bony lesions. IMPRESSION: Dilated loops of small bowel are seen, which are highly suspicious for small bowel obstruction. However, the previously administered oral contrast can be seen within the colon. Thus, the small bowel obstruction is likely only a partial small-bowel obstruction. Dictated by: Balwinder Painting M.D. on 06/28/2022 at 20:28 Approved by: Balwinder Painting M.D. on 06/28/2022 at 20:30
[2022-06-28] MEDS: ONDANSETRON 4 MG/2 ML INJ IV ×2 (21:35→22:43)
[2022-06-28 21:46] LABS: Add Manual Diff / Slide Review NO; Basophils Absolute Auto 0 /uL (0-100); Basophils Percent Auto 0.3 % (0-2); Eosinophils Absolute Auto 0 /uL (0-450); Eosinophils Percent Auto 0.7 % (2-4); Hematocrit 48.2 % (41-53); Hemoglobin 16.5 g/dL (13.5-17.5); Lymphocytes Absolute Auto 1100 /uL (1100-4500); Lymphocytes Percent Auto 14.9 % (25-40); Mean Corpuscular HGB Conc 34.2 % (30-36); Mean Corpuscular Hemoglobin 28.3 PG (26-34); Mean Corpuscular Volume 82.8 fL (80-100); Monocytes Absolute Auto 1200 /uL (0-900); Monocytes Percent Auto 16.6 % (3-14); Neutrophils Absolute Auto 4800 /uL (1500-7000); Neutrophils Percent Auto 67.5 % (50-75); Platelet Count 224 X10^3/uL (150-400); Red Blood Cell Count 5.83 X10^6/uL (4.5-5.9); Red Cell Distribution Width 14.6 % (11.6-14.8); White Blood Cell Count 7.1 X10^3/uL (4.5-11.0)
[2022-06-28 21:55] LABS: Alanine Aminotransferase 59 IU/L (<50); Albumin 4.8 g/dL (3.5-5.0); Albumin Globulin Ratio 1.3 (1.0-2.8); Alkaline Phosphatase 103 U/L (38-126); Aspartate Aminotransferase 35 IU/L (17-59); BUN Creatinine Ratio 11.9 (6-22); Bilirubin Total 1.1 mg/dL (0.2-1.3); Blood Urea Nitrogen 15 mg/dL (9-20); Calcium 9.3 mg/dL (8.4-10.2); Carbon Dioxide 31 mmol/L (22-32); Chloride 96 mmol/L (98-107); Estimated Glomerular Filt Rate > 60 mL/min (>60); Globulin 3.7 g/dL (1.7-4.1); Glucose 112 mg/dL (70-100); HEMOLYSIS < 15 (0-50); Lipase 23 U/L (23-300); Potassium 3.5 mmol/L (3.4-5.1); Sodium 137 mmol/L (137-145); Total Protein 8.5 g/dL (6.3-8.2)
[2022-06-28 22:23] VITALS: BP 148/87; PULSE 98; RESP 16; O2SAT 97
[2022-06-28 22:39] VITALS: PULSE 96; O2SAT 99
[2022-06-28] MEDS: HYDROMORPHONE 1 MG INJ IV (22:43)
--- NOTE | 2022-06-28 22:49 | PC.NURSE ---
This RN inquired patient about possibly having to replace NG tube that pt had previous pulled out with recent admission. Pt reports No. Fuck that NG tube. Pt medicated for pain and nausea per MAR. Provided with warm blanket. Informed pt and significant other to let this RN know if pt changes his mind.
[2022-06-28 23:00] VITALS: PULSE 90; O2SAT 96
[2022-06-28 23:30] VITALS: PULSE 98; O2SAT 96
[2022-06-29] VITALS: PULSE 91; O2SAT 95
[2022-06-29 00:30] VITALS: PULSE 84; O2SAT 96
--- NOTE | 2022-06-29 00:39 | ED_ITS ---
HPI - Abdominal Pain General Chief Complaint: Abdominal Pain Stated Complaint: ABD pain Time Seen by Provider: 06/29/22 00:39 Source: patient Mode of arrival: Family Vehicle History of Present Illness HPI narrative: Patient is a 36-year-old male history of cholecystectomy prior small bowel obstructions presenting today with abdominal pain. He was discharged earlier after being admitted for small-bowel obstruction. Was treated with Gastrografin and released. He previously had an NG-tube in refusing NG again. No nausea or vomiting. Having just increased pain. No fever or chills Related Data Home Medications Medication Instructions Recorded Confirmed No Known Home Medications 06/27/22 06/27/22 Allergies Allergy/AdvReac Type Severity Reaction Status Date / Time No Known Drug Allergies Allergy Verified 02/21/18 22:59 Review of Systems Review of Systems ROS Unobtainable: All systems reviewed & are unremarkable except as noted in HPI and below Patient History Medical History Diverticulosis History of Clostridioides difficile colitis Surgical History Hx of cholecystectomy Family History Father Diabetes mellitus Hypertension Social History household members: significant other Smoking Status: Current some day smoker Smoking Status: Current some day smoker alcohol intake frequency: other Substance Use Type: marijuana Exam Initial Vital Signs Initial Vital Signs: Vital Signs Temperature 99.5 F 06/28/22 20:46 Pulse Rate 106 H 06/28/22 20:46 Respiratory Rate 20 06/28/22 20:46 Blood Pressure 111/57 L 06/28/22 20:46 Pulse Oximetry 99 06/28/22 20:46 Oxygen Delivery Method Room Air 06/28/22 20:46 GENERAL: Alert 36-year-old male appears mildly uncomfortable and in no acute distress. HEENT: Head atraumatic,EOMI, pupils reactive, face symmetric, moist mucous membranes CARDIOVASCULAR: Regular rate and rhythm without murmurs, rubs or gallops. RESPIRATORY: Breath sounds equal bilaterally, no wheezes rales or rhonchi. ABDOMEN: Soft, tender right upper quadrant pain no distention increased bowel sounds EXTREMITIES: Normal range of motion, no clubbing or edema. Neurovascularly intact NEUROLOGICAL: Alert and oriented x4.Normal gait and speech. SKIN: Warm, dry, no laceration, no petechiae, no rashes or lesions. Course Orders Ordered: ED Orders 06/28/22 21:37 Complete Blood Count AUTO DIFF Stat Comprehensive Metabolic Panel Stat Lipase Stat Hydromorphone HCl (Hydromorphone 0.5 Mg Inj) 0.5 mg IV Q3H PRN PRN Reason: Pain, Mild (1-3) Sodium Chloride (Normal Saline 0.9%) 1,000 mls @ 125 mls/hr IV CONT DORIAN Last Admin: 06/29/22 01:41 Dose: 125 mls/hr Documented By: Ondansetron HCl (Ondansetron 4 Mg/2 Ml Inj) 4 mg IV Q6HR PRN PRN Reason: Nausea And Vomiting Discontinued Medications Hydromorphone HCl (Hydromorphone 1 Mg Inj) 1 mg IV NOW ONE Stop: 06/28/22 22:39 Last Admin: 06/28/22 22:43 Dose: 1 mg Documented By: Hydromorphone HCl (Hydromorphone 1 Mg Inj) 1 mg IV NOW ONE Stop: 06/29/22 00:49 Last Admin: 06/29/22 00:53 Dose: 1 mg Documented By: Ondansetron HCl (Ondansetron 4 Mg/2 Ml Inj) 4 mg IV NOW PRN PRN Reason: Nausea And Vomiting Last Admin: 06/28/22 21:35 Dose: 4 mg Documented By: SB Ondansetron HCl (Ondansetron 4 Mg Odt) 4 mg PO NOW PRN PRN Reason: Nausea And Vomiting Ondansetron HCl (Ondansetron 4 Mg/2 Ml Inj) 4 mg IV NOW ONE Stop: 06/28/22 22:39 Last Admin: 06/28/22 22:43 Dose: 4 mg Documented By: Vital Signs Vital signs: Vital Signs - 8 hr 06/29/22 00:43 06/28/22 22:39 06/28/22 23:00 Pulse Rate 84 96 H 90 Pulse Oximetry 96 99 96 Oxygen Delivery Method Room Air 06/28/22 23:30 06/29/22 00:00 06/29/22 00:30 Pulse Rate 98 H 91 H 84 Pulse Oximetry 96 95 96 Oxygen Delivery Method MDM - Abdominal Pain Lab Data 06/28/22 21:37 06/28/22 21:37 Labs: Lab Results 06/28/22 06/28/22 Range/Units 21:37 21:37 WBC 7.1 (4.5-11.0) X10^3/uL RBC 5.83 (4.5-5.9) X10^6/uL Hgb 16.5 (13.5-17.5) g/dL Hct 48.2 (41-53) % MCV 82.8 (80-100) fL MCH 28.3 (26-34) PG MCHC 34.2 (30-36) % RDW 14.6 (11.6-14.8) % Plt Count 224 (150-400) X10^3/uL Neut % (Auto) 67.5 (50-75) % Lymph % (Auto) 14.9 L (25-40) % Benzie % (Auto) 16.6 H (3-14) % Eos % (Auto) 0.7 L (2-4) % Baso % (Auto) 0.3 (0-2) % Neut # (Auto) 4800 (2057-3801) /uL Lymph # (Auto) 1100 (6821-3785) /uL Benzie # (Auto) 1200 H (0-900) /uL Eos # (Auto) 0 (0-450) /uL Baso # (Auto) 0 (0-100) /uL Sodium 137 (137-145) mmol/L Potassium 3.5 (3.4-5.1) mmol/L Chloride 96 L (98-107) mmol/L Carbon Dioxide 31 (22-32) mmol/L BUN 15 (9-20) mg/dL Creatinine 1.26 H (0.66-1.25) mg/dL Estimated GFR > 60 (>60) mL/min BUN/Creatinine Ratio 11.9 (6-22) Glucose 112 H (70-100) mg/dL Calcium 9.3 (8.4-10.2) mg/dL Total Bilirubin 1.1 (0.2-1.3) mg/dL AST 35 (17-59) IU/L ALT 59 H (<50) IU/L Alkaline Phosphatase 103 (38-126) U/L Total Protein 8.5 H (6.3-8.2) g/dL Albumin 4.8 (3.5-5.0) g/dL Globulin 3.7 (1.7-4.1) g/dL Albumin/Globulin Ratio 1.3 (1.0-2.8) Lipase 23 (23-300) U/L Imaging Data Abdominal x-ray: Radiologist's Impression: PROCEDURE:? XR ACUTE ABDOMEN SERIES ? INDICATIONS:? abd pain, worse than previous. recent partial small bowel ob ? TECHNIQUE:? One view chest and two views of the abdomen were acquired.? ? COMPARISON:? [facility], CR, XR GASTROGRAFIN CHALLENGE, 06/27/2022, 13:24.? [facility], CR, XR ABDOMEN 1V, 06/27/2022, 6:20.? [facility], CR, XR ACUTE ABDOMEN SERIES, 02/21/2018, 23:49. ? FINDINGS:? ? Surgical changes and devices:? Cholecystectomy ? Chest:? Lungs are clear.? Heart size is normal.? No pleural effusions.? No pneumoperitoneum.? ? Abdomen:? Stacked loops of dilated small bowel can be seen that measure up to 7 cm.? A few scattered air-fluid levels are seen.? ? Oral contrast can be seen within the colon. ? Bones:? No suspicious bony lesions.? ? ? IMPRESSION:? Dilated loops of small bowel are seen, which are highly suspicious for small bowel obstruction.? However, the previously administered oral contrast can be seen within the colon.? Thus, the small bowel obstruction is likely only a partial small- bowel obstruction.? ? Dictated by: Balwinder Painting M.D. on 06/28/2022 at 20:28 ? ? [facility] Narrative Medical decision making narrative: Patient is a 36-year-old male history of cholecystectomy previous small-bowel obstructions left earlier presenting today again with pain. Mild nausea no vomiting. Pain is controlled with Dilaudid. He is no leukocytosis no electrolyte abnormality x-ray does show dilated loops of small bowel concerning for obstruction. He is adamantly refusing the NG but not actively vomiting. I do not need for repeat CT or imaging was done the day before. Symptoms are similar in consistent with small-bowel obstruction confirm x-ray. Discussion with Dr. Sanchez thus updated on symptoms and test results agrees with no mg IV fluids pain control and agrees to observation. Discharge Plan Departure Patient Disposition: Admitted as Observation Clinical Impression: Partial obstruction of small intestine Admit Date/Time: 06/29/22 00:54 Admit Provider: Maryana Vergara
[2022-06-29 00:43] VITALS: PULSE 84; O2SAT 96
[2022-06-29] MEDS: HYDROMORPHONE 1 MG INJ IV (00:53)
[2022-06-29] MEDS: SODIUM CHLORIDE 0.9% 1,000 ML 125 ML IV (01:41)
[2022-06-29 02:11] VITALS: BP 145/85; PULSE 88; RESP 16; O2SAT 97
[2022-06-29 02:20] VITALS: BMI 32.8
[2022-06-29 03:20] VITALS: BP 119/78; PULSE 84; RESP 12; TEMP 36.2; O2SAT 97
[2022-06-29] MEDS: ONDANSETRON 4 MG/2 ML INJ IV (07:03)
[2022-06-29] MEDS: HYDROMORPHONE 0.5 MG INJ IV ×2 (07:03→10:36)
[2022-06-29 08:37] VITALS: BP 122/80; PULSE 88; RESP 16; TEMP 36.6; O2SAT 98
--- NOTE | 2022-06-29 12:09 | PC.NURSE ---
1152 - Patient stated they were leaving. Informed patient staying is advised. Patient declined that opportunity and also declined waiting for the doctor to speak with them. IV removed, patient tolerated well. Declined signing AMA form. Doctor Jai celestin.
--- NOTE | 2022-06-29 12:33 | CM.DANOTE ---
Initial Discharge Assessment Note: Case reviewed, met with patient who was in pain and not very talkative. Introduced self and role. Payer: [facility] and Medicaid PCP: Evangelina Alanisierrez 36 year old with previous choleycystectomy and SBO presents with abdominal pain. He was discharged a few days ago on 06/27/22 after being admitted for SBO. Wa tx with Gastrografin and released. He previously had NG and refusing again. Increased pain. Difficult to obtain personal history due to patient being in pain and barely talking. He lives with his partner and childen in [place]. He is independent in ADLs and drives. Plan: Discharge to home when medically cleared under partner's care. NOTE: Patient left AMA . Discharge Planning/Care Management CM Discharge Assessment Start: 06/29/22 12:31 Freq: Status: Active Protocol: Document 06/29/22 12:31 (Rec: 06/29/22 12:32 [id number]) Discharge Planning Assessment Assigned Senior Game Developer Tram Rivera RN/DCP Advance Directives? No History Provided By Patient,Medical Record Prior Living Arrangements Apartment/Condo Household Members significant other,children Type of transporation used prior to Drives own vehicle admit Independent with ADL's Yes Is patient alert and oriented? Yes Caregiver for Another No Barriers to Discharge No Discharge Plan Home Transportation Arrangement S/O POV Referrals Initiated None needed Additional Comment At this time. Review Status In Process Next Review Type Continued Stay Review
--- NOTE | 2022-06-29 12:39 | CM.DANOTE ---
Initial Discharge Assessment: Case reviewed and met with patient; introduced self and role Payer: [facility] and Medicaid PCP Evangelina Acevedoz 36 year old admitted with symptoms of SBO. He was here a few days ago and discharged 06/27/22. He is refusing NG tube. He has increased pain and being medicated. Patient lives with life partner and children in [place]. He is unemployed. Plan: When medically cleared, discharge home to care of partner. NOTE: Patient has left AMA. Discharge Planning/Care Management CM Discharge Assessment Start: 06/29/22 12:31 Freq: Status: Active Protocol: Document 06/29/22 12:31 (Rec: 06/29/22 12:32 [id number]) Discharge Planning Assessment Assigned Check Pilot Tram Rivera RN/SHASTAP Advance Directives? No History Provided By Patient,Medical Record Prior Living Arrangements Apartment/Condo Household Members significant other,children Type of transporation used prior to Drives own vehicle admit Independent with ADL's Yes Is patient alert and oriented? Yes Caregiver for Another No Barriers to Discharge No Discharge Plan Home Transportation Arrangement S/O POV Referrals Initiated None needed Additional Comment At this time. Review Status In Process Next Review Type Continued Stay Review
== END 2022-06-29 12:04 | disposition left against medical advice (07) ==
LOC: ED 06-29 00:52 → AC 06-29 02:16
PROVIDERS: Emergency Provider Emergency Medicine; PCP Student in an Organized Health Care Education/Training Program; Visit Provider Surgery
DX: K56.600 Partial intestinal obstruction, unspecified as to cause (principal); R10.9 Unspecified abdominal pain
CPT/HCPCS: 36415; 74022; 80053; 83690; 85025; 96374; 96375; 96376; 99284; G0378; J1170; J2405